=== PATIENT | male | born 1960 | race African-American/Black ===

== ENCOUNTER 2017-06-18 11:05 | Emergency (ER) | payer OTHER | END 2017-06-18 13:02 | disposition home or self-care (01) | LOC: ER 11:05 | DX: S60.211A Contusion of right wrist, initial encounter (principal); W00.2XXA Other fall from one level to another due to ice and snow, initial encounter; Y93.89 Activity, other specified; Y99.8 Other external cause status; Y92.89 Other specified places as the place of occurrence of the external cause | CPT/HCPCS: 73110; 99284 ==

== ENCOUNTER 2021-04-14 03:09 | Inpatient (IN) | payer MEDICAID, OTHER ==
[~2021-04-14] VITALS: Ht 172.7 cm; Wt 80.5 kg
[~2021-04-14 03:09] MED LIST: CYCL10TA19 PO; NAPR500T8 PO
--- NOTE | 2021-04-14 03:39 | PHYS DOC ---
Past Medical History Past Medical History: No Pertinent History Past Surgical History: No Surgical History Smoking Status: Never Smoker Alcohol Use: Occasionally Drug Use: None General Adult EDM: Chief Complaint: ABNORMAL LABS HPI: HPI: Patient is a 61 year old male without known past medical history who presents with renal failure found on outpatient labs. Was seen at [facility] and had lab testing that revealed a creatinine of 22, BUN of 122, and a hemoglobin of 7.4. We did not receive the additional lab values. His ex- presents with him and states that he has had significant weight loss over the past several months, poor appetite, and nausea and vomiting. She also states that he has been progressively dyspneic, and can no longer walk more than a few feet at a time without having to catch his breath. Over the past several days has become progressively confused leading to his laboratory work-up. Patient denied chest pain, abdominal pain, cough, congestion, dysuria. Plainly stated no to all of these questions, but would not elaborate further. Unclear whether he is fully comprehending. Review of Systems: Review of Systems: Unable to obtain a reliable ROS due to the patient's confusion. Heart Score: C/O Chest Pain: No Risk Factors: Risk Factors: DM, Current or recent (<one month) smoker, HTN, HLP, family history of CAD, obesity. Risk Scores: Score 0 - 3: 2.5% MACE over next 6 weeks - Discharge Home Score 4 - 6: 20.3% MACE over next 6 weeks - Admit for Clinical Observation Score 7 - 10: 72.7% MACE over next 6 weeks - Early Invasive Strategies Allergies: Allergies: Allergies Coded Allergies Type Severity Reaction Last Updated Verified No Known Allergies Allergy Unknown 07/07/15 Yes Physical Exam: PE: Constitutional: Ill appearing Cardiovascular: Irregular and tachycardic to the 120s. Lungs & Thorax: Crackles heard in bilateral lung alexander. Abdomen: Distended abdomen, nontender to palpation. Skin: Warm, dry, no erythema, no rash. [] Back: No tenderness, no CVA tenderness. [] Extremities: No lower extremity edema. [] Neurologic: Alert. Oriented only to person, moving all extremities, speech not slurred, face symmetric. Psychologic: Affect normal, judgement normal, mood normal. [] EKG: EKG: A. fib. Rate 118. Peaked T waves. T wave inversions in aVL. Radiology/Procedures: Radiology/Procedures: [] Impression: [facility] [address] [place] [address] IMAGING REPORT Signed PATIENT: GORDON PASTOR ACCOUNT: [id number] : 1960 LOCATION: ER AGE: 61 SEX: M EXAM STATUS: REG ER ORD. PHYSICIAN: EVI MCKEON MD REASON: RENAL FAILURE PROCEDURE: RENAL COMPLETE BILATERAL INDICATION: Reason: RENAL FAILURE / Spl. Instructions: / History: COMPARISON: None. TECHNIQUE: Grayscale and color ultrasound images obtained of the bilateral kidneys and bladder. FINDINGS: Right Kidney: 130 mm. Left Kidney: 123 mm. Severe bilateral hydronephrosis. Bladder: Large masslike structure with internal vascularity within the urinary bladder measuring 76 x 59 x 37 mm. IMPRESSION: * Severe bilateral hydronephrosis. * Large masslike structure within the urinary bladder with internal vascularity. This is more than typically seen with causes such as mass effect on the urinary bladder from enlarged prostate therefore raises the concern for a bladder neoplasm. Bladder is distended. Electronically signed by: Lance Brown MD (04/14/2021 4:47 AM) [id number] DICTATED and SIGNED BY: LANCE BROWN MD DATE: 04/14/21 [id number] 0 Course & Med Decision Making: Course & Med Decision Making Pertinent Labs and Imaging studies reviewed. (See chart for details) Patient is 61-year-old male who presents with progressive dyspnea, weight loss, nausea/vomiting, and confusion found to be in renal failure on outpatient labs. We will obtain broad work-up including CMP, mag, Phos, uric acid, CK, UA, renal ultrasound, CXR. Will give calcium empirically, as potassium was not reported to us. 338 Renal ultrasound shows bilateral severe hydronephrosis and urinary retention. Covarrubias catheter was placed draining 1200 cc. Labs show creatinine at 23, potassium 5.2, high anion gap acidosis, uremia, hyperphosphatemia, hyperuricemia, hypocalcemia. Above findings were discussed with nephrology, Dr. Pimentel, who recommended admission and further trending of labs without further intervention at this time. 050 Alex Disclaimer: Alex Disclaimer: This electronic medical record was generated, in whole or in part, using a voice recognition dictation system. Departure Departure Impression: Primary Impression: Obstructive nephropathy Additional Impressions: Hyperkalemia Hyperuricemia Hyperphosphatemia Hypocalcemia Uremia Confusion Bladder mass Disposition: ADMITTED INPATIENT Admitting Physician: JAKE HOLLAND) Condition: GUARDED Referrals: MAGDA DELGADO MD (PCP) EVI MCKEON MD Apr 14, 2021 03:39
[2021-04-14 03:58] LABS: BASO % 0 % (0-3); EOS # 0.7 x10^3/uL (0.0-0.7); EOS % 11 % (0-3); HEMATOCRIT 22.7 % (39.0-53.0); HEMOGLOBIN 7.5 g/dL (13.0-17.5); LYMPH # 0.7 x10^3/uL (1.0-4.8); LYMPH % 11 % (24-48); MEAN CORPUSCULAR HEMOGLOBIN 32 pg (25-35); MEAN CORPUSCULAR HGB CONC 33 g/dL (31-37); MEAN CORPUSCULAR VOLUME 99 fL (79-100); MONO # 1.3 x10^3/uL (0.0-1.1); MONO % 20 % (0-9); NEUT # 3.7 x10^3/uL (1.8-7.7); NEUT % 58 % (31-73); PLATELET COUNT 214 x10^3/uL (140-400); RED BLOOD COUNT 2.31 x10^6/uL (4.30-5.70); RED CELL DISTRIBUTION WIDTH 12.6 % (11.5-14.5); WHITE BLOOD COUNT 6.4 x10^3/uL (4.0-11.0)
[2021-04-14] MEDS ORDERED: CALCIUM GLUCONATE 1,000 MG/10 ML VIAL. IVP ONE (04:00)
[2021-04-14 04:23] LABS: ALBUMIN 3.6 g/dL (3.4-5.0); ALBUMIN/GLOBULIN RATIO 0.8 (1.0-1.7); MAGNESIUM 1.3 mg/dL (1.8-2.4); POTASSIUM 5.2 mmol/L (3.5-5.1); TOTAL BILIRUBIN 0.3 mg/dL (0.2-1.0); TOTAL PROTEIN 8.2 g/dL (6.4-8.2); URIC ACID 8.5 mg/dL (3.5-7.2)
[2021-04-14 04:40] LABS: GFR 2.5; PHOSPHORUS 10.2 mg/dL (2.6-4.7)
[2021-04-14 04:42] LABS: CALCIUM 5.1 mg/dL (8.5-10.1)
--- NOTE | 2021-04-14 04:50 | RAD ---
INDICATION: Reason: RENAL FAILURE / Spl. Instructions: / History: COMPARISON: None. TECHNIQUE: Grayscale and color ultrasound images obtained of the bilateral kidneys and bladder. FINDINGS: Right Kidney: 130 mm. Left Kidney: 123 mm. Severe bilateral hydronephrosis. Bladder: Large masslike structure with internal vascularity within the urinary bladder measuring 76 x 59 x 37 mm. IMPRESSION: * Severe bilateral hydronephrosis. * Large masslike structure within the urinary bladder with internal vascularity. This is more than t ypically seen with causes such as mass effect on the urinary bladder from enlarged prostate therefore raises the concern for a bladder neoplasm. Bladder is distended. Electronically signed by: Tomer Ospina MD (04/14/2021 4:47 AM) [id number]
--- NOTE | 2021-04-14 05:29 | EKG ---
[facility] [address] [place] [address] Test Date: 2021-04-14 Test Time: 03:22:21 Pat Name: GORDON PASTOR Department: Room: Gender: M Director Inbound Sales: : 1960 Requested By: EVI MCKEON Order Number: [id number] Reading MD: Rodolfo Jordan Measurements Intervals [place] Rate: 118 P: IL: QRS: -7 QRSD: 78 T: 64 QT: 332 QTc: 468 Interpretive Statements ATRIAL FIBRILLATION/FLUTTER WITH RVR LEFTWARD AXIS LEFT VENTRICULAR HYPERTROPHY WITH REPOLARIZATION ABNORMALITY ABNORMAL ECG RI6.02 No previous ECG available for comparison Electronically Signed On 04-15-2021 12:40:02 LOCAL TELEPHONE OPERATOR by Rodolfo Jordan
[2021-04-14 05:49] LABS: BILIRUBIN,URINE NEGATIVE (NEG); CLARITY,URINE CLEAR; COLOR,URINE YELLOW; NITRITE,URINE NEGATIVE (NEG); PROTEIN,URINE 30 mg/dL (NEG-TRACE); UROBILINOGEN,URINE 0.2 mg/dL (0.2 mg/dL)
[2021-04-14 05:53] LABS: BACTERIA,URINE FEW /HPF (0-FEW); RBC,URINE OCC /HPF (0-2)
--- NOTE | 2021-04-14 06:15 | RAD ---
INDICATION: Reason: CONFUSION / Spl. Instructions: / History: COMPARISON: None. TECHNIQUE: Axial CT images obtained through the head without intravenous contrast. One or more of the following individualized dose reduction techniques were utilized for this examinat ion: 1. Automated exposure control; 2. Adjustment of the mA and/or kV according to patient size; 3 . Use of iterative reconstruction technique. FINDINGS: No intracranial hemorrhage. No significant midline shift. Ventricles and sulci are globally prominent. Scattered foci of low attenuation within the white matter. IMPRESSION: * No acute intracranial hemorrhage. * Scattered regions of low attenuation within the white matter. Non-specific in nature but a common finding and frequently secondary to small vessel ischemic disease. * Mucosal thickening of maxillary sinuses. Electronically signed by: Tomer Ospina MD (04/14/2021 6:12 AM) [id number]
--- NOTE | 2021-04-14 07:31 | RAD ---
INDICATION: Reason: RENAL FAILURE / Spl. Instructions: / History: COMPARISON: None. FINDINGS: Single view of chest obtained. Cardiac silhouette is mildly prominent but likely exaggerated by portable technique. Mild calcific at herosclerosis. No definite focal airspace consolidation. IMPRESSION: * No focal airspace consolidation. Electronically signed by: Tomer Ospina MD (04/14/2021 7:28 AM) [id number]
--- NOTE | 2021-04-14 09:04 | HP ---
DATE OF SERVICE: 04/14/2021 ADMIT DATE: 04/14/2021 CHIEF COMPLAINT: Mental status change. 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 He does not have any history of diabetes or hypertension, but today presented with a real high BUN of 122 and a creatinine of 22. We rechecked his labs, his BUN here is 144 and creatinine of 23. He also has the other sequela of chronic renal insufficiency, such as hypocalcemia, hyperphosphatemia, hypertension and anemia. I suspect he has had blood pressure out control for many years. He is probably going to need dialysis. We are going to admit the patient and consult Dr. Pimentel. PAST MEDICAL HISTORY: Muscle spasms and presumed hypertension. ALLERGIES: None. FAMILY HISTORY: Diabetes. SOCIAL HISTORY: Does not drink, smoke or take drugs. He went into early detention because of construction accident. MEDICATIONS: Reviewed, please refer to the MRAD. REVIEW OF SYSTEMS: Unable to obtain, he is too confused. PHYSICAL EXAMINATION: VITALS: Within normal limits and are stable. GENERAL: He is very confused. HEENT: Normal cephalic atraumatic, external auditory canals are patent. EYES: Extraocular muscles are intact, pupils are equally round and reactive to light and accommodation. MUSCULOSKELETAL: Well developed, well nourished, good range of motion. ENDOCRINE: No thyromegaly was palpated. LYMPHATICS: No cervical chain or axillary nodes were noted. HEMATOPOIETIC: No bruising. NECK: Supple, no JVD, no thyromegaly was noted. LUNGS: Clear to auscultation in all lung alexander without rhonchi or wheezing. HEART: RRR, S1, S2 present. Peripheral pulses intact, no obvious murmurs were noted. ABDOMEN: Soft, nontender. Positive bowel sounds no organomegaly, normal bowel sounds. EXTREMITIES: Without any cyanosis, clubbing, or edema. Pedal pulses intact, Homans sign is negative. NEUROLOGIC: He is very confused. PSYCHIATRIC: He is very confused. SKIN: No ulcerations or rashes, good skin turgor, no jaundice. VASCULAR: Good capillary refill, neurovascular bundle appears to be intact. LABORATORY DATA: Creatinine is 23, BUN is 143, calcium 5.1, phosphorus 10. ASSESSMENT AND PLAN: Chronic renal failure with probable end-stage renal disease. The patient will be admitted. We will consult Dr. Pimentel. Suspect he is going need dialysis. Home meds. Deep venous thrombosis prophylaxis. Full code. Rule out COVID-19. CAMERON/DASH DR: CAMERON/roscoe TID: [id number]
[2021-04-14 09:45] VITALS: BP 222/114
[2021-04-14] MEDS ORDERED: cloNIDine HCL 0.2 MG TABLET PO ONE (09:45)
[2021-04-14 11:45] VITALS: BP 179/99
[2021-04-14] MEDS: METOPROLOL TART IMMED RELEASE 25 MG TABLET. PO SCH ×2 (14:27→23:16)
[2021-04-14 15:09] VITALS: BP 148/102
[2021-04-14] MEDS ORDERED: MAGNESIUM SULFATE 2GM 50 ML IV ONE (17:15)
--- NOTE | 2021-04-14 17:36 | PDOC2 ---
CONSULT Date of Consult Date of Consult DATE: 04/14/21 TIME: 17:24 Reason for Consult Reason for Consult: CARLINE Referring Physician Referring Physician: LONNY Identification/Chief Complaint Chief Complaint CONFUSION Source Source: Chart review, Patient History of Present Illness Reason for Visit: THIS IS A 61 YR OLD WITH CONFUSION. OP LABS APPARENTLY SHOWED BUN OF 122 AND CR OF 22. INFO GIVEN IN THE ER BY HIS EX . APPARENTLY HE HAS HAD WT LOSS WITH N/V OVER LAST SEVERAL MONTHS. LABS HERE NOTABLE FOR CR OF 23, K OF 5.2 AND MET ACIDOSIS. ALSO HAS LOW CA AND HIGH PO4. PT IS CONFUSED AND CANNOT REALLY GIVE ANY HX. PER HX PT HAS ALSO BEEN SOB. HGB OF 7.5 Past Medical History Past Medical History UNKNOWN Cardiovascular: HTN Past Surgical History Past Surgical History UNKNOWN Family History Family History UNKNOWN Social History Social History UNKNOWN Lives: with Family Current Medications Current Medications Current Medications Calcium Gluconate (Calcium Gluconate) 1,000 mg 1X ONCE IVP Last administered on 04/14/21at 03:57; Start 04/14/21 at 04:00; Stop 04/14/21 at 04:01; Status DC Clonidine HCl (Catapres) 0.2 mg 1X ONCE PO Last administered on 04/14/21at 10:00; Start 04/14/21 at 09:45; Stop 04/14/21 at 09:46; Status DC Metoprolol Tartrate (Lopressor) 25 mg BID PO Last administered on 04/14/21at 14:27; Start 04/14/21 at 14:00 Magnesium Sulfate 50 ml @ 25 mls/hr 1X ONCE IV ; Start 04/14/21 at 17:15; Stop 04/14/21 at 19:14 Active Scripts Active Cyclobenzaprine Hcl 10 Mg Tablet 1 Tab PO TID Naproxen 500 Mg Tablet. 1 Tab PO BID Allergies Allergies: Coded Allergies: No Known Allergies (Verified Allergy, Unknown, 07/07/15) ROS Review of System UNABLE TO OBTAIN Physical Exam General: Cooperative, mild distress HEENT: Atraumatic, PERRLA Abdomen: Normal bowel sounds, Soft, No tenderness Extremities: No clubbing Skin: No breakdown Neuro: Other (CONFUSED) Psych/Mental Status: Other (CONFUSED, NO ASYMMETRY) MUSCULOSKELETAL: No deformity, No swelling Vitals VITALS Vital Signs Date Time Temp Pulse Resp B/P (MAP) Pulse Ox O2 Delivery O2 Flow Rate FiO2 12/8/21 15:09 97.4 79 20 148/102 (117) 96 Room Air 97.4 Labs Labs Laboratory Tests Test 04/14/21 03:35 04/14/21 05:25 04/14/21 08:17 White Blood Count 6.4 x10^3/uL (4.0-11.0) Red Blood Count 2.31 x10^6/uL (4.30-5.70) Hemoglobin 7.5 g/dL (13.0-17.5) Hematocrit 22.7 % (39.0-53.0) Mean Corpuscular Volume 99 fL (79-100) Mean Corpuscular Hemoglobin 32 pg (25-35) Mean Corpuscular Hemoglobin Concent 33 g/dL (31-37) Red Cell Distribution Width 12.6 % (11.5-14.5) Platelet Count 214 x10^3/uL (140-400) Neutrophils (%) (Auto) 58 % (31-73) Lymphocytes (%) (Auto) 11 % (24-48) Monocytes (%) (Auto) 20 % (0-9) Eosinophils (%) (Auto) 11 % (0-3) Basophils (%) (Auto) 0 % (0-3) Neutrophils # (Auto) 3.7 x10^3/uL (1.8-7.7) Lymphocytes # (Auto) 0.7 x10^3/uL (1.0-4.8) Monocytes # (Auto) 1.3 x10^3/uL (0.0-1.1) Eosinophils # (Auto) 0.7 x10^3/uL (0.0-0.7) Basophils # (Auto) 0.0 x10^3/uL (0.0-0.2) Sodium Level 141 mmol/L (136-145) Potassium Level 5.2 mmol/L (3.5-5.1) Chloride Level 101 mmol/L (98-107) Carbon Dioxide Level 13 mmol/L (21-32) Anion Gap 27 (6-14) Blood Urea Nitrogen 143 mg/dL (8-26) Creatinine 23.0 mg/dL (0.7-1.3) Estimated GFR (Cockcroft-Gault) 2.5 BUN/Creatinine Ratio 6 (6-20) Glucose Level 96 mg/dL (70-99) Lactic Acid Level 0.9 mmol/L (0.4-2.0) Uric Acid 8.5 mg/dL (3.5-7.2) Calcium Level 5.1 mg/dL (8.5-10.1) Phosphorus Level 10.2 mg/dL (2.6-4.7) Magnesium Level 1.3 mg/dL (1.8-2.4) Total Bilirubin 0.3 mg/dL (0.2-1.0) Aspartate Amino Transf (AST/SGOT) 17 U/L (15-37) Alanine Aminotransferase (ALT/SGPT) 25 U/L (16-63) Alkaline Phosphatase 54 U/L (46-116) Creatine Kinase 2993 U/L (39-308) Total Protein 8.2 g/dL (6.4-8.2) Albumin 3.6 g/dL (3.4-5.0) Albumin/Globulin Ratio 0.8 (1.0-1.7) Urine Collection Type U cath Urine Color Yellow Urine Clarity Clear Urine pH 6.0 (<5.0-8.0) Urine Specific [place] 1.010 (1.000-1.030) Urine Protein 30 mg/dL (NEG-TRACE) Urine Glucose (UA) Negative mg/dL (NEG) Urine Ketones (Stick) Negative mg/dL (NEG) Urine Blood Small (NEG) Urine Nitrite Negative (NEG) Urine Bilirubin Negative (NEG) Urine Urobilinogen Dipstick 0.2 mg/dL (0.2 mg/dL) Urine Leukocyte Esterase Trace (NEG) Urine RBC Occ /HPF (0-2) Urine WBC 1-4 /HPF (0-4) Urine Squamous Epithelial Cells Occ /LPF Urine Bacteria Few /HPF (0-FEW) SARS-CoV-2 RNA (JILLIAN) Negative (Negative) SARS-CoV-2 Antigen (Rapid) Negative (NEGATIVE) Laboratory Tests Test 04/14/21 03:35 04/14/21 05:25 04/14/21 08:17 White Blood Count 6.4 x10^3/uL (4.0-11.0) Red Blood Count 2.31 x10^6/uL (4.30-5.70) Hemoglobin 7.5 g/dL (13.0-17.5) Hematocrit 22.7 % (39.0-53.0) Mean Corpuscular Volume 99 fL (79-100) Mean Corpuscular Hemoglobin 32 pg (25-35) Mean Corpuscular Hemoglobin Concent 33 g/dL (31-37) Red Cell Distribution Width 12.6 % (11.5-14.5) Platelet Count 214 x10^3/uL (140-400) Neutrophils (%) (Auto) 58 % (31-73) Lymphocytes (%) (Auto) 11 % (24-48) Monocytes (%) (Auto) 20 % (0-9) Eosinophils (%) (Auto) 11 % (0-3) Basophils (%) (Auto) 0 % (0-3) Neutrophils # (Auto) 3.7 x10^3/uL (1.8-7.7) Lymphocytes # (Auto) 0.7 x10^3/uL (1.0-4.8) Monocytes # (Auto) 1.3 x10^3/uL (0.0-1.1) Eosinophils # (Auto) 0.7 x10^3/uL (0.0-0.7) Basophils # (Auto) 0.0 x10^3/uL (0.0-0.2) Sodium Level 141 mmol/L (136-145) Potassium Level 5.2 mmol/L (3.5-5.1) Chloride Level 101 mmol/L (98-107) Carbon Dioxide Level 13 mmol/L (21-32) Anion Gap 27 (6-14) Blood Urea Nitrogen 143 mg/dL (8-26) Creatinine 23.0 mg/dL (0.7-1.3) Estimated GFR (Cockcroft-Gault) 2.5 BUN/Creatinine Ratio 6 (6-20) Glucose Level 96 mg/dL (70-99) Lactic Acid Level 0.9 mmol/L (0.4-2.0) Uric Acid 8.5 mg/dL (3.5-7.2) Calcium Level 5.1 mg/dL (8.5-10.1) Phosphorus Level 10.2 mg/dL (2.6-4.7) Magnesium Level 1.3 mg/dL (1.8-2.4) Total Bilirubin 0.3 mg/dL (0.2-1.0) Aspartate Amino Transf (AST/SGOT) 17 U/L (15-37) Alanine Aminotransferase (ALT/SGPT) 25 U/L (16-63) Alkaline Phosphatase 54 U/L (46-116) Creatine Kinase 2993 U/L (39-308) Total Protein 8.2 g/dL (6.4-8.2) Albumin 3.6 g/dL (3.4-5.0) Albumin/Globulin Ratio 0.8 (1.0-1.7) Urine Collection Type U cath Urine Color Yellow Urine Clarity Clear Urine pH 6.0 (<5.0-8.0) Urine Specific [place] 1.010 (1.000-1.030) Urine Protein 30 mg/dL (NEG-TRACE) Urine Glucose (UA) Negative mg/dL (NEG) Urine Ketones (Stick) Negative mg/dL (NEG) Urine Blood Small (NEG) Urine Nitrite Negative (NEG) Urine Bilirubin Negative (NEG) Urine Urobilinogen Dipstick 0.2 mg/dL (0.2 mg/dL) Urine Leukocyte Esterase Trace (NEG) Urine RBC Occ /HPF (0-2) Urine WBC 1-4 /HPF (0-4) Urine Squamous Epithelial Cells Occ /LPF Urine Bacteria Few /HPF (0-FEW) SARS-CoV-2 RNA (JILLIAN) Negative (Negative) SARS-CoV-2 Antigen (Rapid) Negative (NEGATIVE) Assessment/Plan Assessment/Plan IMP OBSTRUCTIVE UROPATHY SEVERE BILATERAL HYDRONEPHROSIS CARLINE-ATN HYPERKALEMIA LOW MAG ENCEPHALOPATHY UREMIA ANEMIA HYPERPHOSPHATEMIA HYPOCALCEMIA BLADDER MASS AG MET ACIDOSIS ELEVATED CPK-POSSIBLE RHABDO UNCONTROLLED HTN PLAN ZAVALA WILL NEED CT ABD PELVIS ONCE BLADDER DECOMPRESSED WILL CHECK IRON LEVELS WILL START EPOGEN HYDRATION F/U CK LEVEL WILL PROB NEED DIALYSIS HOPEFULLY CONFUSION IMPROVES WHEN RENAL CLEARANCE IMPROVES RENAL DIET START NORVASC FOR HTN WILL EVENTUALLY NEED TO SEE UROLOGY ALSO START TAMRA CHAVEZ MD Apr 14, 2021 17:36
[2021-04-14] MEDS: TAMSULOSIN 0.4 MG CAP.ER.24H. PO SCH (17:56)
[2021-04-14] MEDS: IV NORMAL SALINE 1000ML BAG 1,000 ML IV SCH (17:56)
[2021-04-14 19:00] VITALS: BP 152/95
[2021-04-14 23:00] VITALS: BP 156/96
[2021-04-15] VITALS (10 sets, daily range): BP systolic 80–135; BP diastolic 37–81
[2021-04-15] MEDS: IV NORMAL SALINE 1000ML BAG 1,000 ML IV SCH ×2 (06:08→15:22)
[2021-04-15 07:55] LABS: RED BLOOD COUNT 2.14 x10^6/uL (4.30-5.70); RED CELL DISTRIBUTION WIDTH 12.7 % (11.5-14.5); WHITE BLOOD COUNT 6.7 x10^3/uL (4.0-11.0)
[2021-04-15 08:02] LABS: HEMOGLOBIN 6.7 g/dL (13.0-17.5)
[2021-04-15 08:24] LABS: CREATININE 21.4 mg/dL (0.7-1.3); GFR 2.7
[2021-04-15 08:27] LABS: CALCIUM 5.5 mg/dL (8.5-10.1); POTASSIUM 6.1 mmol/L (3.5-5.1)
--- NOTE | 2021-04-15 09:28 | RAD ---
EXAMINATION: CT ABDOMEN+PELVIS WO INDICATION: Reason: BLADDER MASS AND HYDRONEPHROSIS, A.M. PER RN, TRAVELS BY / [facility]. Instructions: / History: COMPARISON: Ultrasound from 04/14/2021 TECHNIQUE: CT images were acquired through the abdomen and pelvis. Sagittal and coronal reformatted s eries were provided. FINDINGS: Lung Bases: Left basilar subsegmental atelectasis or scarring. Abdomen: Liver: Normal in size and attenuation. No discrete hepatic abnormality. Gallbladder & Biliary System: Mildly distended gallbladder without evidence of inflammation. No signi ficant biliary ductal dilation. Spleen: Unremarkable. Pancreas: Unremarkable Adrenal Glands: Unremarkable Kidneys: Severe bilateral hydroureteronephrosis. Mild bilateral perinephric edema. No focal renal les ions, within the limits of this noncontrast examination Bowel: Small hiatal hernia. No evidence of bowel obstruction or focal inflammatory process. Colonic d iverticulosis without diverticulitis. Lymph Nodes: No apparent pathologically enlarged abdominal adenopathy. Vasculature: Mild aortobiiliac atherosclerotic disease. Other: No free intra-abdominal air or free fluid. Pelvis: Bladder: Covarrubias catheter is in place and displaced nondependently secondry to a large bladder mass. Th e entire diameter of the intraluminal bladder mass is not well appreciated without contrast. Reproductive Organs: The prostate gland is enlarged and appears contiguous with the lateral mass mar jed this is incompletely evaluated without contrast. Lymph Nodes: No definite pathologic adenopathy. Other: No significant free pelvic fluid Body Wall: Small periumbilical fat-containing hernia. There are bilateral fat containing inguinal her nias with likely small bilateral hydroceles. Bones: There is vacuum disc phenomenon at the L4-L5 disc level with a central likely degenerative janet ency along the superior endplate of L5 no definite suspicious lytic or blastic osseous lesions. No ac [place] fracture. Broad-based disc protrusions at the L4-L5 and L5-S1 levels resulting in moderate centra l and neuroforaminal narrowing. IMPRESSION: 1. Large bladder mass causing severe bilateral hydronephrosis. This likely represents a bladder neopl asm as demonstrated on prior ultrasound. 2. The prostate gland appears enlarged, however it is not well evaluated with the the lack of IV cont rast. Additional imaging with pelvic MRI may be considered. 3. Likely developing Schmorl's node in the central portion of the L5 vertebral body. Osseous metastas is is felt to be less likely but not entirely excluded. Recommend attention on follow-up. Exposure: One or more of the following individualized dose reduction techniques were utilized for thi s examination: 1. Automated exposure control 2. Adjustment of the mA and/or kV according to patient size 3. Use of iterative reconstruction technique. Electronically signed by: Francisco Oakes DO (04/15/2021 9:26 AM) [facility]
[2021-04-15] MEDS: TAMSULOSIN 0.4 MG CAP.ER.24H. PO SCH (09:54)
[2021-04-15] MEDS: METOPROLOL TART IMMED RELEASE 25 MG TABLET. PO SCH (09:54)
[2021-04-15] MEDS ORDERED: LIDOCAINE WITH 8.4% SOD BICARB 3 ML DISP.SYRIN. ONE (10:03)
[2021-04-15] MEDS ORDERED: LIDOCAINE WITH 8.4% SOD BICARB 3 ML DISP.SYRIN. INJ ONE (10:45)
--- NOTE | 2021-04-15 11:23 | PDOC ---
Renal-Progress Notes Subjective Notes Notes LESS CONFUSED History of Present Illness Hx of present illness VERY ILL BUT SOME IMPROVEMENT NOTED Vitals Vitals Vital Signs Date Time Temp Pulse Resp B/P (MAP) Pulse Ox O2 Delivery O2 Flow Rate FiO2 04/15/21 09:54 69 135/73 04/15/21 06:27 98.0 16 95 Room Air 98.0 Weight Weight [ ] I.O. Intake and Output Intake and Output 04/15/21 07:00 Intake Total 1620 ml Output Total 3400 ml Balance -1780 ml Intake Oral 620 ml IV Total 1000 ml Output Urine Total 3400 ml Labs Labs Laboratory Tests Test 04/14/21 20:17 04/15/21 06:05 04/15/21 06:25 Glucose (Fingerstick) 133 mg/dL (70-99) White Blood Count 6.7 x10^3/uL (4.0-11.0) Red Blood Count 2.14 x10^6/uL (4.30-5.70) Hemoglobin 6.7 g/dL (13.0-17.5) Hematocrit 21.0 % (39.0-53.0) Mean Corpuscular Volume 98 fL (79-100) Mean Corpuscular Hemoglobin 31 pg (25-35) Mean Corpuscular Hemoglobin Concent 32 g/dL (31-37) Red Cell Distribution Width 12.7 % (11.5-14.5) Platelet Count 197 x10^3/uL (140-400) Sodium Level 138 mmol/L (136-145) Potassium Level 6.1 mmol/L (3.5-5.1) Chloride Level 104 mmol/L (98-107) Carbon Dioxide Level 11 mmol/L (21-32) Anion Gap 23 (6-14) Blood Urea Nitrogen 134 mg/dL (8-26) Creatinine 21.4 mg/dL (0.7-1.3) Estimated GFR (Cockcroft-Gault) 2.7 Glucose Level 97 mg/dL (70-99) Calcium Level 5.5 mg/dL (8.5-10.1) Iron Level 55 ug/dL (65-175) Total Iron Binding Capacity 202 ug/dL (250-450) Iron Saturation 27 % (15-34) Micro Micro Microbiology 04/14/21 Blood Culture - Preliminary, Resulted NO GROWTH AFTER 1 DAY Review of Systems Constitutional: yes: other (UNABLE TO OBTAIN) Physical Exam General Appearance: no apparent distress Skin: warm Respiratory: bilateral CTA Heart: S1S2 Abdomen: soft, bowel sounds present Genitourinary: bladder flat, prescott catheter Extremities: pulses present, no edema, atrophy Neurology: alert, oriented Assessment Assessment IMP BLADDER MASS-PROB BLADDER CANCER OBSTRUCTIVE UROPATHY SEVERE BILATERAL HYDRONEPHROSIS CARLINE-ATN HYPERKALEMIA LOW MAG ENCEPHALOPATHY UREMIA ANEMIA IRON DEFICIENCY HYPERPHOSPHATEMIA HYPOCALCEMIA AG MET ACIDOSIS ELEVATED CPK-POSSIBLE RHABDO UNCONTROLLED HTN PLAN PRESCOTT CONT EPOGEN START VENOFER HYDRATION F/U CK LEVEL WILL ASK IR TO PLACE TEMP HD LINE HOPEFULLY CONFUSION IMPROVES WHEN RENAL CLEARANCE IMPROVES RENAL DIET ADD BINDERS WILL EVENTUALLY NEED TO SEE UROLOGY CONT FLOMAX FOR NOW WILL START HD AND STABILIZE POSSIBLE TRANSFER TO SEE UROLOGY WILL D/W ATTENDING TAMRA VIDAL MD Apr 15, 2021 11:23
[2021-04-15] MEDS ORDERED: DIALYSIS PATIENT. MC PRN (11:30)
[2021-04-15] MEDS ORDERED: diphenhydrAMINE 50 MG/ML VIAL IV PRN ×2 (11:30)
[2021-04-15] MEDS ORDERED: IV NORMAL SALINE 1000ML BAG 1,000 ML IV PRN ×2 (11:30)
--- NOTE | 2021-04-15 11:40 | NUR ---
SS following for discharge planning. SS reviewed pt chart and discussed with pt RN. Pt is from home and is currently on room air. COVID19 negative. Pt needing emergent hemodialysis. Temporary HD cath placed today. Pt received one unit of blood. Per Dr. Pimentel, pt will need outpatient hemodialysis set up at [facility], ; fax [phone]. Serology labs ordered. SS currently awaiting IR report and serology labs at this time and will send completed referral to [facility] once received. SS will continue to follow for discharge planning. Addendum: 04/15/21 at 1237 by MARLENY LUGO Referral phoned and faxed to [facility], ; fax [phone].
[2021-04-15] MEDS: SEVELAMER CARBONATE 800 MG TABLET. PO SCH ×2 (12:00→17:00)
[2021-04-15] MEDS: FOLIC/VIT B COMP W-C (RENAL) TABLET. PO SCH (12:00)
[2021-04-15] MEDS ORDERED: IRON SUCROSE COMPLEX 500 MG in IV NORMAL SALINE 250ML 250 ML IV ONE (12:00)
--- NOTE | 2021-04-15 13:01 | PDOC ---
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 He does not have any history of diabetes or hypertension, but today presented with a real high BUN of 122 and a creatinine of 22. We rechecked his labs, his BUN here is 144 and creatinine of 23. He also has the other sequela of chronic renal insufficiency, such as hypocalcemia, hyperphosphatemia, hypertension and anemia. I suspect he has had blood pressure out control for many years. He is probably going to need dialysis. We are going to admit the patient and consult Dr. Pimentel. 04/15/2021 Patient seen and examined Patient is awake, alert, in NAD Zavala catheter to BSD; hematuria noted residential monitor Chart reviewed Discussed with RN Vitals/I&O Vitals/I&O: Vital Signs Date Time Temp Pulse Resp B/P (MAP) Pulse Ox O2 Delivery O2 Flow Rate FiO2 04/15/21 09:54 69 135/73 04/15/21 06:27 98.0 16 95 Room Air 98.0 I & O 04/14/21 04/14/21 04/15/21 15:00 23:00 07:00 Intake Total 620 ml 1000 ml Output Total 1000 ml 950 ml 1450 ml Balance -1000 ml -330 ml -450 ml Physical Exam General: Cooperative, mild distress Heart: Regular rate Lungs: Clear Abdomen: Normal bowel sounds, Soft, No tenderness Extremities: No clubbing Skin: No breakdown Labs Labs: Laboratory Tests Test 04/14/21 20:17 04/15/21 06:05 04/15/21 06:25 Glucose (Fingerstick) 133 mg/dL (70-99) White Blood Count 6.7 x10^3/uL (4.0-11.0) Red Blood Count 2.14 x10^6/uL (4.30-5.70) Hemoglobin 6.7 g/dL (13.0-17.5) Hematocrit 21.0 % (39.0-53.0) Mean Corpuscular Volume 98 fL (79-100) Mean Corpuscular Hemoglobin 31 pg (25-35) Mean Corpuscular Hemoglobin Concent 32 g/dL (31-37) Red Cell Distribution Width 12.7 % (11.5-14.5) Platelet Count 197 x10^3/uL (140-400) Hepatitis B Surface Antigen Nonreactive (Nonreactive) Hepatitis B Core Total Antibody Nonreactive (Nonreactive) Sodium Level 138 mmol/L (136-145) Potassium Level 6.1 mmol/L (3.5-5.1) Chloride Level 104 mmol/L (98-107) Carbon Dioxide Level 11 mmol/L (21-32) Anion Gap 23 (6-14) Blood Urea Nitrogen 134 mg/dL (8-26) Creatinine 21.4 mg/dL (0.7-1.3) Estimated GFR (Cockcroft-Gault) 2.7 Glucose Level 97 mg/dL (70-99) Calcium Level 5.5 mg/dL (8.5-10.1) Iron Level 55 ug/dL (65-175) Total Iron Binding Capacity 202 ug/dL (250-450) Iron Saturation 27 % (15-34) Assessment and Plan Assessmemt and Plan Chronic renal failure with probable end-stage renal disease. Bladder mass possible cancer Plan: Appreciate subspecialist input Temporary cath for dialysis placed today Dialysis today One unit of blood administered Home meds. Deep venous thrombosis prophylaxis. Full code. COVID-19 negative Will consult Heme/Onc Will likely need Urology eval Per nephrology recommendations please see the following and we certainly agree and appreciate their input: IMPRESSION BLADDER MASS-PROB BLADDER CANCER OBSTRUCTIVE UROPATHY SEVERE BILATERAL HYDRONEPHROSIS CARLINE-ATN HYPERKALEMIA LOW MAG ENCEPHALOPATHY UREMIA ANEMIA IRON DEFICIENCY HYPERPHOSPHATEMIA HYPOCALCEMIA AG MET ACIDOSIS ELEVATED CPK-POSSIBLE RHABDO UNCONTROLLED HTN PLAN ZAVALA CONT EPOGEN START VENOFER HYDRATION F/U CK LEVEL WILL ASK IR TO PLACE TEMP HD LINE HOPEFULLY CONFUSION IMPROVES WHEN RENAL CLEARANCE IMPROVES RENAL DIET ADD BINDERS WILL EVENTUALLY NEED TO SEE UROLOGY CONT FLOMAX FOR NOW WILL START HD AND STABILIZE POSSIBLE TRANSFER TO SEE UROLOGY WILL D/W ATTENDING Comment Review of Relevant I have reviewed the following items kirstie (where applicable) has been applied. Medications: Current Medications Medications (Trade) Dose Ordered Sig/Laura Route PRN Reason Start Time Stop Time Status Last Admin Dose Admin Metoprolol Tartrate (Lopressor) 25 mg BID PO 04/14/21 14:00 04/15/21 09:54 Magnesium Sulfate 50 ml @ 25 mls/hr 1X ONCE IV 04/14/21 17:15 04/14/21 19:14 DC 04/14/21 17:58 Tamsulosin HCl (Flomax) 0.4 mg DAILY PO 04/14/21 18:00 04/15/21 09:54 Amlodipine Besylate (Norvasc) 5 mg DAILY PO 04/14/21 18:00 04/15/21 09:53 Sodium Chloride 1,000 ml @ 100 mls/hr Q10H IV 04/14/21 17:45 04/15/21 06:08 Lidocaine HCl (Buffered Lidocaine 1%) 3 ml 1X ONCE INJ 04/15/21 10:45 04/15/21 10:46 DC 04/15/21 11:04 Justifications for Admission Other Justification GIACOMO MUKHERJEE III DO Apr 15, 2021 13:01
--- NOTE | 2021-04-15 14:47 | RAD ---
Procedure: Temporary hemodialysis catheter placement Total fluoroscopy time: 0.1 Min Dose area product 0.1 mGycm2 Sterility: All elements of maximal sterile barrier technique including the use of a cap, mask, steril e gown, sterile gloves, large sterile sheet, appropriate hand hygiene, and 2% chlorhexidine for cutan eous antisepsis (or acceptable alternative antiseptic per current guidelines) were followed for this procedure. Consent: The procedure was explained in its entirety to the patient or the patients designated repres entative by a member of the treatment team, including a discussion of the risks, benefits and commonl y accepted alternatives to the procedure, as well as the expected consequences of no therapy whatsoev er. Discussion of the risks included, but was not limited to, those that are most frequent and thos e that are rare but possibly severe or life-threatening, as well as the possibility of unforeseen com plications. Technique and Findings: Following informed consent, the patient was prepped and draped in the usual s terile fashion. Ultrasound interrogation of the right neck revealed patency and compressibility of t he right internal jugular vein. A 21-gauge micropuncture was then used to gain access to this vein u nder ultrasound guidance. A hard copy ultrasound image was recorded. A guidewire was advanced centra lly over which, following dilatation, a temporary dialysis catheter was placed. The new catheter wa s found to flush and aspirate normally. The catheter was secured in place. Sterile dressings were franck lied. No immediate complications were identified. IMPRESSION: Placement of a right internal jugular temporary dialysis catheter Electronically signed by: Pietro Aguilar MD (04/15/2021 2:45 PM) [id number]
[2021-04-15] MEDS ORDERED: METOPROLOL IV PUSH 5 MG/5 ML VIAL. IVP ONE (15:00)
[2021-04-15] MEDS ORDERED: ONDANSETRON PF 4 MG/2 ML VIAL. IVP PRN (15:15)
--- NOTE | 2021-04-15 15:15 | EKG ---
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
--- NOTE | 2021-04-15 16:08 | PDOC2 ---
CARDIAC CONSULT DATE OF CONSULT Date of Consult DATE: 04/15/21 TIME: 15:50 REASON FOR CONSULT Reason for Consult: AFIB REFERRING PHYSICIAN Referring Physician: Dr. Granger SOURCE Source: Chart review, Patient HISTORY OF PRESENT ILLNESS HISTORY OF PRESENT ILLNESS This is a 61 yo male who presented secondary to abnormal labs, renal failure. Patient had new onset confusion. Was seen at [facility] and had lab testing that revealed a creatinine of 22, BUN of 122, and a hemoglobin of 7.4. Was referred to the ED for further evaluation and treatment. He reports significant weight loss, poor appetite, and nausea/vomiting over the past several months. Has also had progressive dyspnea upon exertion. Was started on HD. Went into AFIB with RVR post HD, which prompted this consult. He denies any chest pain, dizziness, diaphoresis, or shortness of breath. PAST MEDICAL HISTORY Cardiovascular: No pertinent hx Pulmonary: No pertinent hx Renal/: Other (urinary retention ) Endocrine: No pertinent hx PAST SURGICAL HISTORY Past Surgical History: No pertinent history FAMILY HISTORY Family History: Other (prostate CA ) SOCIAL HISTORY Smoke: No ALCOHOL: none Drugs: Marijuana Lives: Alone CURRENT MEDICATIONS CURRENT MEDICATIONS Current Medications Medications (Trade) Dose Ordered Sig/Laura Route PRN Reason Start Time Stop Time Status Last Admin Dose Admin Magnesium Sulfate 50 ml @ 25 mls/hr 1X ONCE IV 04/14/21 17:15 04/14/21 19:14 DC 04/14/21 17:58 Tamsulosin HCl (Flomax) 0.4 mg DAILY PO 04/14/21 18:00 04/15/21 09:54 Amlodipine Besylate (Norvasc) 5 mg DAILY PO 04/14/21 18:00 04/15/21 09:53 Sodium Chloride 1,000 ml @ 100 mls/hr Q10H IV 04/14/21 17:45 04/15/21 15:22 Lidocaine HCl (Buffered Lidocaine 1%) 3 ml 1X ONCE INJ 04/15/21 10:45 04/15/21 10:46 DC 04/15/21 11:04 Metoprolol Tartrate (Lopressor Vial) 5 mg 1X ONCE IVP 04/15/21 15:00 04/15/21 15:01 DC 04/15/21 15:05 Ondansetron HCl (Zofran) 4 mg PRN Q6HRS PRN IVP NAUSEA/VOMITING 04/15/21 15:15 04/15/21 15:20 ALLERGIES ALLERGIES: Coded Allergies: No Known Allergies (Verified Allergy, Unknown, 07/07/15) ROS Review of System 14 point ROS conducted with pertinent positives noted above in HPI PHYSICAL EXAM General: Alert, Oriented X3, Cooperative, No acute distress HEENT: Atraumatic, Mucous membr. moist/pink Lungs: Clear to auscultation Heart: Other (AFIB with RVR) Abdomen: Soft Extremities: No edema, Normal pulses Skin: No significant lesion Neuro: Normal speech, Sensation intact Psych/Mental Status: Mental status NL, Mood NL MUSCULOSKELETAL: Osteoarthritic changes both hands VITALS/I&O VITALS/I&O: Vital Signs Date Time Temp Pulse Resp B/P (MAP) Pulse Ox O2 Delivery O2 Flow Rate FiO2 04/15/21 15:05 69 135/73 04/15/21 06:27 98.0 16 95 Room Air 98.0 I & O 04/14/21 04/14/21 04/15/21 15:00 23:00 07:00 Intake Total 620 ml 1000 ml Output Total 1000 ml 950 ml 1450 ml Balance -1000 ml -330 ml -450 ml LABS Lab: Laboratory Tests Test 04/14/21 20:17 04/15/21 06:05 04/15/21 06:25 Glucose (Fingerstick) 133 mg/dL (70-99) H White Blood Count 6.7 x10^3/uL (4.0-11.0) Red Blood Count 2.14 x10^6/uL (4.30-5.70) L Hemoglobin 6.7 g/dL (13.0-17.5) *L Hematocrit 21.0 % (39.0-53.0) *L Mean Corpuscular Volume 98 fL (79-100) Mean Corpuscular Hemoglobin 31 pg (25-35) Mean Corpuscular Hemoglobin Concent 32 g/dL (31-37) Red Cell Distribution Width 12.7 % (11.5-14.5) Platelet Count 197 x10^3/uL (140-400) Hepatitis B Surface Antigen Nonreactive (Nonreactive) Hepatitis B Core Total Antibody Nonreactive (Nonreactive) Sodium Level 138 mmol/L (136-145) Potassium Level 6.1 mmol/L (3.5-5.1) *H Chloride Level 104 mmol/L (98-107) Carbon Dioxide Level 11 mmol/L (21-32) *L Anion Gap 23 (6-14) H Blood Urea Nitrogen 134 mg/dL (8-26) H Creatinine 21.4 mg/dL (0.7-1.3) H Estimated GFR (Cockcroft-Gault) 2.7 Glucose Level 97 mg/dL (70-99) Calcium Level 5.5 mg/dL (8.5-10.1) *L Iron Level 55 ug/dL (65-175) L Total Iron Binding Capacity 202 ug/dL (250-450) L Iron Saturation 27 % (15-34) Laboratory Tests 04/15/21 06:05 Laboratory Tests 04/15/21 06:25 ASSESSMENT/PLAN ASSESSMENT/PLAN 1. New onset AFIB with RVR in setting of below. 2. CARLINE, hyperkalemia; uremic. HD initiated 3. Obstructive uropathy, bilateral hydronephrosis 4. Bladder mass. concerns for bladder CA 5. Metabolic acidosis 6. Hypocalcemia 7. Anemia; being transfused 8. Hypertension; controlled 9. Encephalopathy 10. Hypomagnesemia 11. Hematuria Recommendations Metoprolol IVP x1 now Increase to 50mg BID No ASA/OAC with anemia TSH, lipids Recheck Mg and replace as warranted Echo to assess LV systolic function Transfuse as warranted Follow renal recs Supportive care DHIRAJ ROBERTSON APRN Apr 15, 2021 16:08
[2021-04-15] MEDS ORDERED: DIGOXIN IV 500 MCG/2 ML AMPUL. IV ONE (16:45)
[2021-04-15] MEDS: METOPROLOL TART IMMED RELEASE 50 MG TABLET. PO SCH (22:09)
[2021-04-16 02:41] VITALS: BP 122/82
[2021-04-16] MEDS: IV NORMAL SALINE 1000ML BAG 1,000 ML IV SCH ×3 (04:35→22:24)
[2021-04-16 05:43] LABS: HEMATOCRIT 23.1 % (39.0-53.0); HEMOGLOBIN 7.6 g/dL (13.0-17.5); RED BLOOD COUNT 2.4 x10^6/uL (4.30-5.70); RED CELL DISTRIBUTION WIDTH 12.7 % (11.5-14.5); WHITE BLOOD COUNT 7.8 x10^3/uL (4.0-11.0)
[2021-04-16 06:18] LABS: CHOLESTEROL/HDL RATIO 5.3
[2021-04-16 06:30] LABS: CALCIUM 6.5 mg/dL (8.5-10.1); CREATININE 14.3 mg/dL (0.7-1.3); GFR 4.3; PHOSPHORUS 6.3 mg/dL (2.6-4.7); POTASSIUM 4.1 mmol/L (3.5-5.1)
[2021-04-16 07:00] VITALS: BP 106/69
[2021-04-16] MEDS: TAMSULOSIN 0.4 MG CAP.ER.24H. PO SCH (08:50)
[2021-04-16] MEDS: FOLIC/VIT B COMP W-C (RENAL) TABLET. PO SCH (08:50)
[2021-04-16] MEDS: SEVELAMER CARBONATE 800 MG TABLET. PO SCH ×3 (08:50→16:52)
[2021-04-16] MEDS: METOPROLOL TART IMMED RELEASE 50 MG TABLET. PO SCH ×2 (08:50→22:23)
[2021-04-16] MEDS ORDERED: 0.9 % SODIUM CHLORIDE 10 ML DISP.SYRIN. IV PRN ×2 (09:15)
[2021-04-16] MEDS ORDERED: ALBUMIN HUMAN 25% 200 ML IV PRN (09:15)
[2021-04-16] MEDS ORDERED: DIALYSIS PATIENT. MC PRN ×2 (09:15)
[2021-04-16] MEDS ORDERED: IV NORMAL SALINE 1000ML BAG 1,000 ML IV PRN ×2 (09:15)
--- NOTE | 2021-04-16 10:39 | PDOC ---
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 He does not have any history of diabetes or hypertension, but today presented with a real high BUN of 122 and a creatinine of 22. We rechecked his labs, his BUN here is 144 and creatinine of 23. He also has the other sequela of chronic renal insufficiency, such as hypocalcemia, hyperphosphatemia, hypertension and anemia. I suspect he has had blood pressure out control for many years. He is probably going to need dialysis. We are going to admit the patient and consult Dr. Pimentel. 04/16/2021 Patient seen and examined Discussed patient's disposition with family member in room, she states that his mental status/confusion has improved Patient seen in dialysis, awake, alert, appears well in NAD Chart reviewed Discussed with RN 04/15/2021 Patient seen and examined Patient is awake, alert, in NAD Zavala catheter to BSD; hematuria noted air sampling and monitoring Chart reviewed Discussed with RN Vitals/I&O Vitals/I&O: Vital Signs Date Time Temp Pulse Resp B/P (MAP) Pulse Ox O2 Delivery O2 Flow Rate FiO2 04/16/21 08:51 136 106/69 04/16/21 08:00 Room Air 04/16/21 07:00 98.0 18 97 98.0 I & O 04/15/21 04/15/21 04/16/21 15:00 23:00 07:00 Intake Total 210 ml 740 ml 1625 ml Output Total 900 ml 1100 ml Balance 210 ml -160 ml 525 ml Physical Exam General: Alert, Oriented X3, Cooperative, No acute distress Heart: Other (AFIB with RVR) Lungs: Clear Abdomen: Soft Extremities: No edema, Normal pulses Skin: No significant lesion Labs Labs: Laboratory Tests Test 04/16/21 05:00 White Blood Count 7.8 x10^3/uL (4.0-11.0) Red Blood Count 2.40 x10^6/uL (4.30-5.70) Hemoglobin 7.6 g/dL (13.0-17.5) Hematocrit 23.1 % (39.0-53.0) Mean Corpuscular Volume 96 fL (79-100) Mean Corpuscular Hemoglobin 32 pg (25-35) Mean Corpuscular Hemoglobin Concent 33 g/dL (31-37) Red Cell Distribution Width 12.7 % (11.5-14.5) Platelet Count 181 x10^3/uL (140-400) Sodium Level 141 mmol/L (136-145) Potassium Level 4.1 mmol/L (3.5-5.1) Chloride Level 103 mmol/L (98-107) Carbon Dioxide Level 22 mmol/L (21-32) Anion Gap 16 (6-14) Blood Urea Nitrogen 78 mg/dL (8-26) Creatinine 14.3 mg/dL (0.7-1.3) Estimated GFR (Cockcroft-Gault) 4.3 Glucose Level 102 mg/dL (70-99) Calcium Level 6.5 mg/dL (8.5-10.1) Phosphorus Level 6.3 mg/dL (2.6-4.7) Creatine Kinase 1439 U/L (39-308) Triglycerides Level 81 mg/dL (0-150) Cholesterol Level 139 mg/dL (0-200) LDL Cholesterol, Calculated 97 mg/dL (0-100) VLDL Cholesterol, Calculated 16 mg/dL (0-40) Non-HDL Cholesterol Calculated 113 mg/dL (0-129) HDL Cholesterol 26 mg/dL (40-60) Cholesterol/HDL Ratio 5.3 Thyroid Stimulating Hormone (TSH) 2.425 uIU/mL (0.358-3.74) Assessment and Plan Assessmemt and Plan Chronic renal failure with probable end-stage renal disease. Bladder mass possible cancer Plan: Appreciate subspecialist input CT abd/pelvis results per report: IMPRESSION: 1. Large bladder mass causing severe bilateral hydronephrosis. This likely represents a bladder neoplasm as demonstrated on prior ultrasound. 2. The prostate gland appears enlarged, however it is not well evaluated with the the lack of IV contrast. Additional imaging with pelvic MRI may be considered. 3. Likely developing Schmorl's node in the central portion of the L5 vertebral body. Osseous metastasis is felt to be less likely but not entirely excluded. Recommend attention on follow-up. Dialysis today Home meds. Deep venous thrombosis prophylaxis. Full code. COVID-19 negative Will consult Heme/Onc Will likely need Urology eval Per nephrology recommendations please see the following and we certainly agree and appreciate their input: IMPRESSION BLADDER MASS-PROB BLADDER CANCER OBSTRUCTIVE UROPATHY SEVERE BILATERAL HYDRONEPHROSIS CARLINE-ATN HYPERKALEMIA LOW MAG ENCEPHALOPATHY UREMIA ANEMIA IRON DEFICIENCY HYPERPHOSPHATEMIA HYPOCALCEMIA AG MET ACIDOSIS ELEVATED CPK-POSSIBLE RHABDO UNCONTROLLED HTN PLAN ZAVALA CONT EPOGEN START VENOFER HYDRATION F/U CK LEVEL WILL ASK IR TO PLACE TEMP HD LINE HOPEFULLY CONFUSION IMPROVES WHEN RENAL CLEARANCE IMPROVES RENAL DIET ADD BINDERS WILL EVENTUALLY NEED TO SEE UROLOGY CONT FLOMAX FOR NOW WILL START HD AND STABILIZE POSSIBLE TRANSFER TO SEE UROLOGY WILL D/W ATTENDING Comment Review of Relevant I have reviewed the following items kirstie (where applicable) has been applied. Medications: Current Medications Medications (Trade) Dose Ordered Sig/Laura Route PRN Reason Start Time Stop Time Status Last Admin Dose Admin Lidocaine HCl (Buffered Lidocaine 1%) 3 ml 1X ONCE INJ 04/15/21 10:45 04/15/21 10:46 DC 04/15/21 11:04 Iron Sucrose 500 mg/Sodium Chloride 275 ml @ 78.571 mls/ hr 1X ONCE IV 04/15/21 12:00 04/15/21 15:29 DC 04/15/21 20:14 Sevelamer Carbonate (Renvela) 800 mg TIDWMEALS PO 04/15/21 12:00 04/16/21 08:50 Vitamin B Complex/ Vitamin C (Genie-Seda) 1 tab DAILY PO 04/15/21 12:00 04/16/21 08:50 Metoprolol Tartrate (Lopressor Vial) 5 mg 1X ONCE IVP 04/15/21 15:00 04/15/21 15:01 DC 04/15/21 15:05 Ondansetron HCl (Zofran) 4 mg PRN Q6HRS PRN IVP NAUSEA/VOMITING 04/15/21 15:15 04/15/21 15:20 Metoprolol Tartrate (Lopressor) 50 mg BID PO 04/15/21 21:00 04/16/21 08:50 Digoxin (Lanoxin) 500 mcg 1X ONCE IV 04/15/21 16:45 04/15/21 16:46 DC 04/15/21 17:14 Justifications for Admission Other Justification GIACOMO MUKHERJEE K III DO Apr 16, 2021 10:39
--- NOTE | 2021-04-16 11:28 | NUR ---
SS following up with discharge planning. SS reviewed pt chart and discussed with pt RN. Pt is currently on room air. COVID19 negative. Pt has confirmed chair time for outpatient hemodialysis Monday, , and Monday at 1015 at [facility], ; fax [phone]. Pt first start date for dialysis is scheduled for 04/20/[address] Pimentel notified. Per Dr. Pimentel not ready for discharge at this time. SS will continue to follow for discharge planning.
--- NOTE | 2021-04-16 12:04 | PDOC ---
Renal-Progress Notes Subjective Notes Notes NO COMPLAINTS History of Present Illness Hx of present illness EATING BETTER, AWAKE ALERT AND ORIENTED NOW Vitals Vitals Vital Signs Date Time Temp Pulse Resp B/P (MAP) Pulse Ox O2 Delivery O2 Flow Rate FiO2 04/16/21 08:51 136 106/69 04/16/21 08:00 Room Air 04/16/21 07:00 98.0 18 97 98.0 Weight Weight [ ] I.O. Intake and Output Intake and Output 04/16/21 07:00 Intake Total 2575 ml Output Total 2000 ml Balance 575 ml Intake Oral 960 ml IV Total 1275 ml Blood Product IV Normal Saline Flush 340 ml Output Urine Total 2000 ml Labs Labs Laboratory Tests Test 04/16/21 05:00 White Blood Count 7.8 x10^3/uL (4.0-11.0) Red Blood Count 2.40 x10^6/uL (4.30-5.70) Hemoglobin 7.6 g/dL (13.0-17.5) Hematocrit 23.1 % (39.0-53.0) Mean Corpuscular Volume 96 fL (79-100) Mean Corpuscular Hemoglobin 32 pg (25-35) Mean Corpuscular Hemoglobin Concent 33 g/dL (31-37) Red Cell Distribution Width 12.7 % (11.5-14.5) Platelet Count 181 x10^3/uL (140-400) Sodium Level 141 mmol/L (136-145) Potassium Level 4.1 mmol/L (3.5-5.1) Chloride Level 103 mmol/L (98-107) Carbon Dioxide Level 22 mmol/L (21-32) Anion Gap 16 (6-14) Blood Urea Nitrogen 78 mg/dL (8-26) Creatinine 14.3 mg/dL (0.7-1.3) Estimated GFR (Cockcroft-Gault) 4.3 Glucose Level 102 mg/dL (70-99) Calcium Level 6.5 mg/dL (8.5-10.1) Phosphorus Level 6.3 mg/dL (2.6-4.7) Creatine Kinase 1439 U/L (39-308) Triglycerides Level 81 mg/dL (0-150) Cholesterol Level 139 mg/dL (0-200) LDL Cholesterol, Calculated 97 mg/dL (0-100) VLDL Cholesterol, Calculated 16 mg/dL (0-40) Non-HDL Cholesterol Calculated 113 mg/dL (0-129) HDL Cholesterol 26 mg/dL (40-60) Cholesterol/HDL Ratio 5.3 Thyroid Stimulating Hormone (TSH) 2.425 uIU/mL (0.358-3.74) Micro Micro Microbiology 04/14/21 Blood Culture - Preliminary, Resulted NO GROWTH AFTER 2 DAYS Review of Systems Constitutional: yes: weakness, alert, oriented Ears/Nose/Throat: Yes: no symptom reported Eyes: Yes: no symptom reported Pulmonary: Yes no symptom reported Gastrointestional: Yes: nausea Genitourinary: Yes: no symptom reported Musculoskeletal: Yes: no symptom reported Skin: Yes no symptom reported Psychiatric/Neurological: Yes: no symptom reported Endocrine: Yes: no symptom reported Hematologic/Lymphatic: Yes: no symptom reported Physical Exam General Appearance: no apparent distress Skin: warm Respiratory: bilateral CTA Heart: S1S2 Abdomen: soft, bowel sounds present Genitourinary: bladder flat, prescott catheter Extremities: pulses present, no edema, atrophy Neurology: alert, oriented Assessment Assessment IMP BLADDER MASS-PROB BLADDER CANCER OBSTRUCTIVE UROPATHY SEVERE BILATERAL HYDRONEPHROSIS CARLINE-ATN HYPERKALEMIA LOW MAG ENCEPHALOPATHY UREMIA ANEMIA IRON DEFICIENCY HYPERPHOSPHATEMIA HYPOCALCEMIA AG MET ACIDOSIS ELEVATED CPK-POSSIBLE RHABDO-CK 1499 UNCONTROLLED HTN PLAN PRESCOTT CONT EPOGEN S/P VENOFER HYDRATION RENAL DIET WILL EVENTUALLY NEED TO SEE UROLOGY CONT FLOMAX HD TODAY AGAIN NO UF LOW QB POSSIBLE TRANSFER TO SEE UROLOGY OP HD HAS BEE SET UP AT [facility] D/W ATTENDING TAMRA VIDAL MD Apr 16, 2021 12:04
--- NOTE | 2021-04-16 12:39 | PDOC ---
JO CARRILLO TECHNICAL PHOTOGRAPHER 04/16/21 1239: CARDIO Progress Notes Date and Time Date of Service 04/16/2021 Time of Evaluation 1210 Subjective Subjective: No Chest Pain, No shortness of breath, No Palpitations Vitals Vitals Vital Signs Date Time Temp Pulse Resp B/P (MAP) Pulse Ox O2 Delivery O2 Flow Rate FiO2 04/16/21 08:51 136 106/69 04/16/21 08:00 Room Air 04/16/21 07:00 98.0 18 97 98.0 Weight Weight [ ] Input and Output Intake and Output Intake and Output 04/16/21 07:00 Intake Total 2575 ml Output Total 2000 ml Balance 575 ml Intake Oral 960 ml IV Total 1275 ml Blood Product IV Normal Saline Flush 340 ml Output Urine Total 2000 ml Laboratory Labs Laboratory Tests Test 04/16/21 05:00 White Blood Count 7.8 x10^3/uL (4.0-11.0) Red Blood Count 2.40 x10^6/uL (4.30-5.70) Hemoglobin 7.6 g/dL (13.0-17.5) Hematocrit 23.1 % (39.0-53.0) Mean Corpuscular Volume 96 fL (79-100) Mean Corpuscular Hemoglobin 32 pg (25-35) Mean Corpuscular Hemoglobin Concent 33 g/dL (31-37) Red Cell Distribution Width 12.7 % (11.5-14.5) Platelet Count 181 x10^3/uL (140-400) Sodium Level 141 mmol/L (136-145) Potassium Level 4.1 mmol/L (3.5-5.1) Chloride Level 103 mmol/L (98-107) Carbon Dioxide Level 22 mmol/L (21-32) Anion Gap 16 (6-14) Blood Urea Nitrogen 78 mg/dL (8-26) Creatinine 14.3 mg/dL (0.7-1.3) Estimated GFR (Cockcroft-Gault) 4.3 Glucose Level 102 mg/dL (70-99) Calcium Level 6.5 mg/dL (8.5-10.1) Phosphorus Level 6.3 mg/dL (2.6-4.7) Creatine Kinase 1439 U/L (39-308) Triglycerides Level 81 mg/dL (0-150) Cholesterol Level 139 mg/dL (0-200) LDL Cholesterol, Calculated 97 mg/dL (0-100) VLDL Cholesterol, Calculated 16 mg/dL (0-40) Non-HDL Cholesterol Calculated 113 mg/dL (0-129) HDL Cholesterol 26 mg/dL (40-60) Cholesterol/HDL Ratio 5.3 Thyroid Stimulating Hormone (TSH) 2.425 uIU/mL (0.358-3.74) Microbiology Micro Microbiology 04/14/21 Blood Culture - Preliminary, Resulted NO GROWTH AFTER 2 DAYS Review of Systems Constitutional: yes: weakness, alert, oriented Ears/Nose/Throat: Yes: no symptom reported Eyes: Yes: no symptom reported Pulmonary: Yes no symptom reported Gastrointestional: Yes: nausea Genitourinary: Yes: no symptom reported Musculoskeletal: Yes: no symptom reported Skin: Yes no symptom reported Psychiatric/Neurological: Yes: no symptom reported Endocrine: Yes: no symptom reported Hematologic/Lymphatic: Yes: no symptom reported Physical Exam HEENT: Neck Supple W Full Motion Chest: Symmetric LUNGS: Clear to Auscultation Heart: irregularly irregular (Atrial flutter) Abdomen: Soft N/T Extremities: No Calf Tenderness Neurology: alert, oriented, follow commands Assessment Assessment 1. New onset AFIB with RVR , likely precipitated by metabolic issues and anemia, atrial flutter rate controlled 2. CARLINE, hyperkalemia; uremic. HD initiated 3. Obstructive uropathy, bilateral hydronephrosis 4. Bladder mass. concerns for bladder CA 5. Metabolic acidosis 6. Hypocalcemia 7. Anemia; post transfusion 8. Hypertension; controlled 9. Encephalopathy 10. Hypomagnesemia 11. Hematuria Recommendations Continue metoprolol will adjust per rate and BP trend. Dig was given yesterday. continue rate control TTE. No ASA/OAC with anemia at this time. ECASA 81 mg when clear with others Transfuse as warranted Follow renal recs Supportive care Justicifation of Admission Dx: Justifications for Admission: Justification of Admission Dx: Yes ARCELIA ELIZABETH MD 04/16/212103: CARDIO Progress Notes Assessment Assessment Patient seen and examined I agree with our landmen assessment and plan. Atrial fib/flutter. Rate improved. Continuing present treatment and monitor. CARLINE. HD as per renal. Anemia. Continuing to monitor. JO CARRILLO TECHNICAL PHOTOGRAPHER Apr 16, 2021 12:39 ARCELIA ELIZABETH MD Apr 16, 2021 21:04
[2021-04-16 15:00] VITALS: BP 106/54
[2021-04-16 19:05] VITALS: BP 117/72
[2021-04-16 23:00] VITALS: BP 110/65
[2021-04-17 02:48] VITALS: BP 131/71
[2021-04-17 04:40] LABS: HEMOGLOBIN 7.3 g/dL (13.0-17.5); RED BLOOD COUNT 2.29 x10^6/uL (4.30-5.70); RED CELL DISTRIBUTION WIDTH 12.5 % (11.5-14.5); WHITE BLOOD COUNT 8.7 x10^3/uL (4.0-11.0)
[2021-04-17 05:09] LABS: CALCIUM 6.3 mg/dL (8.5-10.1); CREATININE 8.6 mg/dL (0.7-1.3); GFR 7.6; MAGNESIUM 1.5 mg/dL (1.8-2.4); PHOSPHORUS 4.4 mg/dL (2.6-4.7); POTASSIUM 3.7 mmol/L (3.5-5.1)
[2021-04-17 07:00] VITALS: BP 121/76
[2021-04-17] MEDS ORDERED: DIALYSIS PATIENT. MC PRN (07:15)
[2021-04-17] MEDS ORDERED: IV NORMAL SALINE 1000ML BAG 1,000 ML IV PRN ×2 (07:15)
[2021-04-17] MEDS: SEVELAMER CARBONATE 800 MG TABLET. PO SCH ×3 (08:00→17:00)
[2021-04-17] MEDS: FOLIC/VIT B COMP W-C (RENAL) TABLET. PO SCH (09:00)
[2021-04-17] MEDS: TAMSULOSIN 0.4 MG CAP.ER.24H. PO SCH (09:00)
[2021-04-17] MEDS: METOPROLOL TART IMMED RELEASE 50 MG TABLET. PO SCH ×2 (09:00→20:42)
--- NOTE | 2021-04-17 09:00 | NUR ---
Morning meds held due to patient scheduled for dialysis this morning.
--- NOTE | 2021-04-17 13:06 | PDOC ---
[facility] PROGRESS NOTE Date of Service DOS: DATE: 04/17/21 TIME: 13:03 Chief Complaint Chief Complaint Severe metabolic encephalopathy secondary to uremia Obstructive uropathy Possible ESRD Hydronephrosis New dialysis Probable bladder cancer CARLINE Hyperkalemia Low magnesium Uremia Anemia Iron deficiency Hyperphosphatemia Hypocalcemia Anion gap metabolic acidosis Rhabdomyolysis Hypertension Probable noncompliance History of Present Illness History of Present Illness 04/17/2021 Patient seen exam He has 2 daughters at his bedside there are good support for him Discussed with RN Chart reviewed He just got back from dialysis Appears more alert Eating much The patient is a pleasant 61-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 He does not have any history of diabetes or hypertension, but today presented with a real high BUN of 122 and a creatinine of 22. We rechecked his labs, his BUN here is 144 and creatinine of 23. He also has the other sequela of chronic renal insufficiency, such as hypocalcemia, hyperphosphatemia, hypertension and anemia. I suspect he has had blood pressure out control for many years. He is probably going to need dialysis. We are going to admit the patient and consult Dr. Pimentel. 04/16/2021 Patient seen and examined Discussed patient's disposition with family member in room, she states that his mental status/confusion has improved Patient seen in dialysis, awake, alert, appears well in NAD Chart reviewed Discussed with RN 04/15/2021 Patient seen and examined Patient is awake, alert, in NAD Covarrubias catheter to BSD; hematuria noted cafeteria monitor Chart reviewed Discussed with RN Vitals/I&O Vitals/I&O: Vital Signs Date Time Temp Pulse Resp B/P (MAP) Pulse Ox O2 Delivery O2 Flow Rate FiO2 04/17/21 08:00 Room Air 04/17/21 07:00 99.8 82 18 121/76 (91) 95 99.8 I & O0 04/16/21 04/16/21 04/17/21 15:00 23:00 07:00 Intake Total 360 ml 380 ml 0 ml Output Total 800 ml 150 ml 650 ml Balance -440 ml 230 ml -650 ml Physical Exam General: Alert, Oriented X3, Cooperative, No acute distress Heart: Other (AFIB with RVR) Lungs: Clear Abdomen: Soft Extremities: No edema, Normal pulses Skin: No significant lesion Labs Labs: Laboratory Tests Test 04/17/21 04:00 04/17/21 08:03 White Blood Count 8.7 x10^3/uL (4.0-11.0) Red Blood Count 2.29 x10^6/uL (4.30-5.70) Hemoglobin 7.3 g/dL (13.0-17.5) Hematocrit 22.0 % (39.0-53.0) Mean Corpuscular Volume 96 fL (79-100) Mean Corpuscular Hemoglobin 32 pg (25-35) Mean Corpuscular Hemoglobin Concent 33 g/dL (31-37) Red Cell Distribution Width 12.5 % (11.5-14.5) Platelet Count 156 x10^3/uL (140-400) Sodium Level 142 mmol/L (136-145) Potassium Level 3.7 mmol/L (3.5-5.1) Chloride Level 103 mmol/L (98-107) Carbon Dioxide Level 27 mmol/L (21-32) Anion Gap 12 (6-14) Blood Urea Nitrogen 42 mg/dL (8-26) Creatinine 8.6 mg/dL (0.7-1.3) Estimated GFR (Cockcroft-Gault) 7.6 Glucose Level 82 mg/dL (70-99) Calcium Level 6.3 mg/dL (8.5-10.1) Phosphorus Level 4.4 mg/dL (2.6-4.7) Magnesium Level 1.5 mg/dL (1.8-2.4) Creatine Kinase 1147 U/L (39-308) Glucose (Fingerstick) 80 mg/dL (70-99) Assessment and Plan Assessmemt and Plan Severe metabolic encephalopathy secondary to uremia Obstructive uropathy Possible ESRD Hydronephrosis New dialysis Probable bladder cancer CARLINE Hyperkalemia Low magnesium Uremia Anemia Iron deficiency Hyperphosphatemia Hypocalcemia Anion gap metabolic acidosis Rhabdomyolysis Hypertension Probable noncompliance Plan Cardiac monitoring Continued dialysis per nephrology He eventually will need urology surgical procedure for the bladder mass I have consulted hematology oncology Home meds DVT prophylaxis Full code Continue Covarrubias to bedside drainage Encourage p.o. intake Trend labs Long-term prognosis guarded Comment Review of Relevant I have reviewed the following items kirstie (where applicable) has been applied. Justifications for Admission Other Justification GIACOMO MUKHERJEE III DO Apr 17, 2021 13:05
[2021-04-17] MEDS: IV NORMAL SALINE 1000ML BAG 1,000 ML IV SCH ×3 (13:54→23:30)
[2021-04-17 15:00] VITALS: BP 126/80
--- NOTE | 2021-04-17 15:31 | PDOC ---
Renal-Progress Notes Subjective Notes Notes FEELING BETTER DAILY History of Present Illness Hx of present illness STABLE Vitals Vitals Vital Signs Date Time Temp Pulse Resp B/P (MAP) Pulse Ox O2 Delivery O2 Flow Rate FiO2 04/17/21 08:00 Room Air 04/17/21 07:00 99.8 82 18 121/76 (91) 95 99.8 Weight Weight [ ] I.O. Intake and Output Intake and Output 04/17/21 07:00 Intake Total 740 ml Output Total 1600 ml Balance -860 ml Intake Oral 740 ml Output Urine Total 1600 ml # Bowel Movements 1 Labs Labs Laboratory Tests Test 04/17/21 04:00 04/17/21 08:03 White Blood Count 8.7 x10^3/uL (4.0-11.0) Red Blood Count 2.29 x10^6/uL (4.30-5.70) Hemoglobin 7.3 g/dL (13.0-17.5) Hematocrit 22.0 % (39.0-53.0) Mean Corpuscular Volume 96 fL (79-100) Mean Corpuscular Hemoglobin 32 pg (25-35) Mean Corpuscular Hemoglobin Concent 33 g/dL (31-37) Red Cell Distribution Width 12.5 % (11.5-14.5) Platelet Count 156 x10^3/uL (140-400) Sodium Level 142 mmol/L (136-145) Potassium Level 3.7 mmol/L (3.5-5.1) Chloride Level 103 mmol/L (98-107) Carbon Dioxide Level 27 mmol/L (21-32) Anion Gap 12 (6-14) Blood Urea Nitrogen 42 mg/dL (8-26) Creatinine 8.6 mg/dL (0.7-1.3) Estimated GFR (Cockcroft-Gault) 7.6 Glucose Level 82 mg/dL (70-99) Calcium Level 6.3 mg/dL (8.5-10.1) Phosphorus Level 4.4 mg/dL (2.6-4.7) Magnesium Level 1.5 mg/dL (1.8-2.4) Creatine Kinase 1147 U/L (39-308) Glucose (Fingerstick) 80 mg/dL (70-99) Micro Micro Microbiology 04/14/21 Blood Culture - Preliminary, Resulted NO GROWTH AFTER 3 DAYS Review of Systems Constitutional: yes: weakness, alert, oriented Ears/Nose/Throat: Yes: no symptom reported Eyes: Yes: no symptom reported Pulmonary: Yes no symptom reported Gastrointestional: Yes: nausea Genitourinary: Yes: no symptom reported Musculoskeletal: Yes: no symptom reported Skin: Yes no symptom reported Psychiatric/Neurological: Yes: no symptom reported Endocrine: Yes: no symptom reported Hematologic/Lymphatic: Yes: no symptom reported Physical Exam General Appearance: no apparent distress Skin: warm Respiratory: bilateral CTA Heart: S1S2 Abdomen: soft, bowel sounds present Genitourinary: bladder flat, prescott catheter Extremities: pulses present, no edema, atrophy Neurology: alert, oriented, follow commands Assessment Assessment IMP BLADDER MASS-PROB BLADDER CANCER OBSTRUCTIVE UROPATHY SEVERE BILATERAL HYDRONEPHROSIS CARLINE-ATN HYPERKALEMIA LOW MAG ENCEPHALOPATHY UREMIA ANEMIA IRON DEFICIENCY HYPERPHOSPHATEMIA HYPOCALCEMIA AG MET ACIDOSIS ELEVATED CPK-POSSIBLE RHABDO-CK 1499 UNCONTROLLED HTN PLAN PRESCOTT CONT EPOGEN - HAD IV VENOFER HYDRATION TO CONTINUE RENAL DIET TO CONTINUE WILL EVENTUALLY NEED TO SEE UROLOGY CONT FLOMAX HD TODAY AGAIN WITH NO UF POSSIBLE TRANSFER TO SEE UROLOGY OP HD HAS BEE SET UP AT [facility] D/W ATTENDING TAMRA VIDAL MD Apr 17, 2021 15:31
--- NOTE | 2021-04-17 15:35 | PDOC ---
PROGRESS NOTES Date of Service: DATE: 04/17/21 TIME: 15:35 Subjective Subjective Denied any CP or SOA Objective Objective Vital Signs Date Time Temp Pulse Resp B/P (MAP) Pulse Ox O2 Delivery O2 Flow Rate FiO2 04/17/21 08:00 Room Air 04/17/21 07:00 99.8 82 18 121/76 (91) 95 99.8 Intake and Output 04/17/21 07:00 Intake Total 740 ml Output Total 1600 ml Balance -860 ml Intake Oral 740 ml Output Urine Total 1600 ml # Bowel Movements 1 Physical Exam Abdomen: Soft Heart: Other (AFIB with RVR) Extremities: No edema, Normal pulses General: Alert, Oriented X3, Cooperative, No acute distress HEENT: Atraumatic, Mucous membr. moist/pink Lungs: Clear to auscultation MUSCULOSKELETAL: Osteoarthritic changes both hands Neuro: Normal speech, Sensation intact Psych/Mental Status: Mental status NL, Mood NL Skin: No significant lesion Assessment Assessment 1. New onset AFIB with RVR , likely precipitated by metabolic issues and anemia, presently back in SR 2. CARLINE, hyperkalemia; uremic. HD initiated 3. Obstructive uropathy, bilateral hydronephrosis 4. Bladder mass. concerns for bladder CA 5. Metabolic acidosis 6. Hypocalcemia 7. Anemia; post transfusion 8. Hypertension; controlled 9. Encephalopathy 10. Hypomagnesemia 11. Hematuria Recommendations Continue metoprolol TTE as outpatient. No ASA/OAC with anemia at this time. ECASA 81 mg when clear with others Transfuse as warranted Follow renal recs Supportive care Comment Review of Relevant I have reviewed the following items kirstie (where applicable) has been applied. Labs Laboratory Tests Test 04/17/21 04:00 04/17/21 08:03 White Blood Count 8.7 x10^3/uL (4.0-11.0) Red Blood Count 2.29 x10^6/uL (4.30-5.70) Hemoglobin 7.3 g/dL (13.0-17.5) Hematocrit 22.0 % (39.0-53.0) Mean Corpuscular Volume 96 fL (79-100) Mean Corpuscular Hemoglobin 32 pg (25-35) Mean Corpuscular Hemoglobin Concent 33 g/dL (31-37) Red Cell Distribution Width 12.5 % (11.5-14.5) Platelet Count 156 x10^3/uL (140-400) Sodium Level 142 mmol/L (136-145) Potassium Level 3.7 mmol/L (3.5-5.1) Chloride Level 103 mmol/L (98-107) Carbon Dioxide Level 27 mmol/L (21-32) Anion Gap 12 (6-14) Blood Urea Nitrogen 42 mg/dL (8-26) Creatinine 8.6 mg/dL (0.7-1.3) Estimated GFR (Cockcroft-Gault) 7.6 Glucose Level 82 mg/dL (70-99) Calcium Level 6.3 mg/dL (8.5-10.1) Phosphorus Level 4.4 mg/dL (2.6-4.7) Magnesium Level 1.5 mg/dL (1.8-2.4) Creatine Kinase 1147 U/L (39-308) Glucose (Fingerstick) 80 mg/dL (70-99) Microbiology 04/14/21 Blood Culture - Preliminary, Resulted NO GROWTH AFTER 3 DAYS Medications Current Medications Info (PHARMACY MONITORING -- do not chart) 1 each PRN DAILY PRN MC SEE COMMENTS; Start 04/17/21 at 07:15 Sodium Chloride 1,000 ml @ 400 mls/hr Q2H30M PRN IV PATENCY; Start 04/17/21 at 07:15; Stop 04/17/21 at 19:14 Sodium Chloride 1,000 ml @ 1,000 mls/hr Q1H PRN IV hypotension; Start 04/17/21 at 07:15; Stop 04/17/21 at 13:14; Status DC Vitals/I & O Vital Sign - Last 24 Hours 04/16/21 04/16/21 04/16/21 04/16/21 19:05 20:00 22:23 23:00 Temp 99.3 98.6 99.3 98.6 Pulse 94 94 95 Resp 20 18 B/P (MAP) 117/72 (87) 117/72 110/65 (80) Pulse Ox 94 94 O2 Delivery Room Air Room Air Room Air 04/17/21 04/17/21 04/17/21 02:48 07:00 08:00 Temp 98.8 99.8 98.8 99.8 Pulse 84 82 Resp 16 18 B/P (MAP) 131/71 (91) 121/76 (91) Pulse Ox 95 95 O2 Delivery Room Air Room Air Room Air Intake and Output 04/16/21 04/16/21 04/17/21 15:00 23:00 07:00 Intake Total 360 ml 380 ml 0 ml Output Total 800 ml 150 ml 650 ml Balance -440 ml 230 ml -650 ml VIRGINIA PRADO MD Apr 17, 2021 15:35
[2021-04-17 19:31] VITALS: BP 132/80
[2021-04-17 23:03] VITALS: BP 133/84
[2021-04-18 02:54] VITALS: BP 143/79
[2021-04-18 05:28] LABS: CALCIUM 6.2 mg/dL (8.5-10.1); CREATININE 6.2 mg/dL (0.7-1.3); GFR 11.2; MAGNESIUM 1.6 mg/dL (1.8-2.4); PHOSPHORUS 3.2 mg/dL (2.6-4.7); POTASSIUM 3.9 mmol/L (3.5-5.1)
[2021-04-18 07:31] VITALS: BP 127/79
[2021-04-18] MEDS: SEVELAMER CARBONATE 800 MG TABLET. PO SCH ×3 (08:57→16:53)
[2021-04-18] MEDS: FOLIC/VIT B COMP W-C (RENAL) TABLET. PO SCH (08:57)
[2021-04-18] MEDS: TAMSULOSIN 0.4 MG CAP.ER.24H. PO SCH (08:57)
[2021-04-18] MEDS: METOPROLOL TART IMMED RELEASE 50 MG TABLET. PO SCH ×2 (08:58→20:44)
[2021-04-18] MEDS: IV NORMAL SALINE 1000ML BAG 1,000 ML IV SCH ×2 (09:04→20:43)
[2021-04-18 10:33] VITALS: BP 139/69
--- NOTE | 2021-04-18 12:02 | PDOC ---
Renal-Progress Notes Subjective Notes Notes NO NEW COMPLAINTS History of Present Illness Hx of present illness STABLE Vitals Vitals Vital Signs Date Time Temp Pulse Resp B/P (MAP) Pulse Ox O2 Delivery O2 Flow Rate FiO2 04/18/21 10:33 100.0 74 16 139/69 (92) 96 Room Air 100.0 Weight Weight [ ] I.O. Intake and Output Intake and Output 04/18/21 07:00 Intake Total 990 ml Output Total 1450 ml Balance -460 ml Intake Oral 990 ml Output Urine Total 1450 ml # Voids 2 Labs Labs Laboratory Tests Test 04/18/21 04:30 Sodium Level 143 mmol/L (136-145) Potassium Level 3.9 mmol/L (3.5-5.1) Chloride Level 107 mmol/L (98-107) Carbon Dioxide Level 25 mmol/L (21-32) Anion Gap 11 (6-14) Blood Urea Nitrogen 24 mg/dL (8-26) Creatinine 6.2 mg/dL (0.7-1.3) Estimated GFR (Cockcroft-Gault) 11.2 Glucose Level 83 mg/dL (70-99) Calcium Level 6.2 mg/dL (8.5-10.1) Phosphorus Level 3.2 mg/dL (2.6-4.7) Magnesium Level 1.6 mg/dL (1.8-2.4) Micro Micro Microbiology 04/14/21 Blood Culture - Preliminary, Resulted NO GROWTH AFTER 4 DAYS Review of Systems Constitutional: yes: weakness, alert, oriented Ears/Nose/Throat: Yes: no symptom reported Eyes: Yes: no symptom reported Pulmonary: Yes no symptom reported Gastrointestional: Yes: nausea Genitourinary: Yes: no symptom reported Musculoskeletal: Yes: no symptom reported Skin: Yes no symptom reported Psychiatric/Neurological: Yes: no symptom reported Endocrine: Yes: no symptom reported Hematologic/Lymphatic: Yes: no symptom reported Physical Exam General Appearance: no apparent distress Skin: warm Respiratory: bilateral CTA Heart: S1S2 Abdomen: soft, bowel sounds present Genitourinary: bladder flat, prescott catheter Extremities: pulses present, no edema, atrophy Neurology: alert, oriented, follow commands Assessment Assessment IMP BLADDER MASS-PROB BLADDER CANCER OBSTRUCTIVE UROPATHY SEVERE BILATERAL HYDRONEPHROSIS CARLINE-ATN HYPERKALEMIA LOW MAG ENCEPHALOPATHY UREMIA ANEMIA IRON DEFICIENCY HYPERPHOSPHATEMIA HYPOCALCEMIA AG MET ACIDOSIS ELEVATED CPK-POSSIBLE RHABDO-CK 1499 UNCONTROLLED HTN-BETTER SEVERE DECONDITIONING PLAN PRESCOTT CONT EPOGEN - HAD IV VENOFER HYDRATION TO CONTINUE RENAL DIET TO CONTINUE WILL EVENTUALLY NEED TO SEE UROLOGY CONT FLOMAX HD TODAY TOMORROW POSSIBLE TRANSFER TO SEE UROLOGY OP HD HAS BEE SET UP AT [facility] D/W ATTENDING PT WOULD BENEFIT FROM LT[facility] WILL FOLLOW TAMRA VIDAL MD Apr 18, 2021 12:02
--- NOTE | 2021-04-18 12:55 | PDOC ---
[facility] [facility] PROGRESS NOTE Date of Service DOS: DATE: 04/18/21 TIME: 12:54 Chief Complaint Chief Complaint Severe metabolic encephalopathy secondary to uremia Obstructive uropathy Possible ESRD Hydronephrosis New dialysis Probable bladder cancer CARLINE Hyperkalemia Low magnesium Uremia Anemia Iron deficiency Hyperphosphatemia Hypocalcemia Anion gap metabolic acidosis Rhabdomyolysis Hypertension Probable noncompliance History of Present Illness History of Present Illness 04/18/2021 Patient seen and examined Chart reviewed Discussed with RN Discussed with nephrology 04/17/2021 Patient seen exam He has 2 daughters at his bedside there are good support for him Discussed with RN Chart reviewed He just got back from dialysis Appears more alert Eating much The patient is a pleasant 61-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 He does not have any history of diabetes or hypertension, but today presented with a real high BUN of 122 and a creatinine of 22. We rechecked his labs, his BUN here is 144 and creatinine of 23. He also has the other sequela of chronic renal insufficiency, such as hypocalcemia, hyperphosphatemia, hypertension and anemia. I suspect he has had blood pressure out control for many years. He is probably going to need dialysis. We are going to admit the patient and consult Dr. Pimentel. 04/16/2021 Patient seen and examined Discussed patient's disposition with family member in room, she states that his mental status/confusion has improved Patient seen in dialysis, awake, alert, appears well in NAD Chart reviewed Discussed with RN 04/15/2021 Patient seen and examined Patient is awake, alert, in NAD Covarrubias catheter to BSD; hematuria noted residential monitor Chart reviewed Discussed with RN Vitals/I&O Vitals/I&O: Vital Signs Date Time Temp Pulse Resp B/P (MAP) Pulse Ox O2 Delivery O2 Flow Rate FiO2 04/18/21 10:33 100.0 74 16 139/69 (92) 96 Room Air 100.0 I & O 04/17/21 04/17/21 04/18/21 15:00 23:00 07:00 Intake Total 500 ml 490 ml 0 ml Output Total 1450 ml Balance 500 ml 490 ml -1450 ml Physical Exam General: Alert, Oriented X3, Cooperative, No acute distress Heart: Other (AFIB with RVR) Lungs: Clear Abdomen: Soft Extremities: No edema, Normal pulses Skin: No significant lesion Labs Labs: Laboratory Tests Test 04/18/21 04:30 Sodium Level 143 mmol/L (136-145) Potassium Level 3.9 mmol/L (3.5-5.1) Chloride Level 107 mmol/L (98-107) Carbon Dioxide Level 25 mmol/L (21-32) Anion Gap 11 (6-14) Blood Urea Nitrogen 24 mg/dL (8-26) Creatinine 6.2 mg/dL (0.7-1.3) Estimated GFR (Cockcroft-Gault) 11.2 Glucose Level 83 mg/dL (70-99) Calcium Level 6.2 mg/dL (8.5-10.1) Phosphorus Level 3.2 mg/dL (2.6-4.7) Magnesium Level 1.6 mg/dL (1.8-2.4) Assessment and Plan Assessmemt and Plan Problems Medical Problems: (1) Bladder mass Status: Acute (2) Confusion Status: Acute (3) Hyperkalemia Status: Acute (4) Hyperphosphatemia Status: Acute (5) Hyperuricemia Status: Acute (6) Hypocalcemia Status: Acute (7) Obstructive nephropathy Status: Acute (8) Uremia Status: Acute Severe metabolic encephalopathy secondary to uremia Obstructive uropathy Possible ESRD Hydronephrosis New dialysis Probable bladder cancer CARLINE Hyperkalemia Low magnesium Uremia Anemia Iron deficiency Hyperphosphatemia Hypocalcemia Anion gap metabolic acidosis Rhabdomyolysis Hypertension Probable noncompliance Plan Long-term acute care evaluation For now continue the following; Cardiac monitoring Continued dialysis per nephrology He eventually will need urology surgical procedure for the bladder mass (urology team will be back on May 08) I have consulted hematology oncology Home meds DVT prophylaxis Full code Continue Covarrubias to bedside drainage Encourage p.o. intake Trend labs Long-term prognosis guarded Comment Review of Relevant I have reviewed the following items kirstie (where applicable) has been applied. Justifications for Admission Other Justification GIACOMO MUKHERJEE III DO Apr 18, 2021 12:54
[2021-04-18 14:15] VITALS: BP 114/70
--- NOTE | 2021-04-18 14:24 | PDOC ---
PROGRESS NOTES Date of Service: DATE: 04/18/21 TIME: 14:24 Subjective Subjective No new complaints. Objective Objective Vital Signs Date Time Temp Pulse Resp B/P (MAP) Pulse Ox O2 Delivery O2 Flow Rate FiO2 04/18/21 14:15 99.3 91 16 114/70 (85) 99 Room Air 99.3 Intake and Output 04/18/21 07:00 Intake Total 990 ml Output Total 1450 ml Balance -460 ml Intake Oral 990 ml Output Urine Total 1450 ml # Voids 2 Physical Exam Abdomen: Soft Heart: Other (AFIB with RVR) Extremities: No edema, Normal pulses General: Alert, Oriented X3, Cooperative, No acute distress HEENT: Atraumatic, Mucous membr. moist/pink Lungs: Clear to auscultation MUSCULOSKELETAL: Osteoarthritic changes both hands Neuro: Normal speech, Sensation intact Psych/Mental Status: Mental status NL, Mood NL Skin: No significant lesion Assessment Assessment 1. New onset AFIB with RVR , likely precipitated by metabolic issues and anemia, presently back in SR 2. CARLINE, hyperkalemia; uremic. HD initiated 3. Obstructive uropathy, bilateral hydronephrosis 4. Bladder mass. concerns for bladder CA 5. Metabolic acidosis 6. Hypocalcemia 7. Anemia; post transfusion 8. Hypertension; controlled 9. Encephalopathy 10. Hypomagnesemia 11. Hematuria Recommendations Continue metoprolol TTE as outpatient. No ASA/OAC with anemia at this time. ECASA 81 mg when clear with others Transfuse as warranted Follow renal recs Supportive care Plan Plan of Care Problems Medical Problems: (1) Bladder mass Status: Acute (2) Confusion Status: Acute (3) Hyperkalemia Status: Acute (4) Hyperphosphatemia Status: Acute (5) Hyperuricemia Status: Acute (6) Hypocalcemia Status: Acute (7) Obstructive nephropathy Status: Acute (8) Uremia Status: Acute Comment Review of Relevant I have reviewed the following items kirstie (where applicable) has been applied. Labs Laboratory Tests Test 04/18/21 04:30 Sodium Level 143 mmol/L (136-145) Potassium Level 3.9 mmol/L (3.5-5.1) Chloride Level 107 mmol/L (98-107) Carbon Dioxide Level 25 mmol/L (21-32) Anion Gap 11 (6-14) Blood Urea Nitrogen 24 mg/dL (8-26) Creatinine 6.2 mg/dL (0.7-1.3) Estimated GFR (Cockcroft-Gault) 11.2 Glucose Level 83 mg/dL (70-99) Calcium Level 6.2 mg/dL (8.5-10.1) Phosphorus Level 3.2 mg/dL (2.6-4.7) Magnesium Level 1.6 mg/dL (1.8-2.4) Microbiology 04/14/21 Blood Culture - Preliminary, Resulted NO GROWTH AFTER 4 DAYS Medications Current Medications Magnesium Sulfate 50 ml @ 25 mls/hr 1X ONCE IV ; Start 04/18/21 at 14:30; Stop 04/18/21 at 16:29 Vitals/I & O Vital Sign - Last 24 Hours 04/17/21 04/17/21 04/17/21 04/17/21 15:00 19:31 19:51 20:42 Temp 99.5 100.6 99.5 100.6 Pulse 80 87 87 Resp 16 16 B/P (MAP) 126/80 (95) 132/80 (97) 132/80 Pulse Ox 98 96 O2 Delivery Room Air Room Air Room Air 04/17/21 04/18/21 04/18/21 04/18/21 23:03 02:54 07:31 08:00 Temp 100.6 100.1 99.6 100.6 100.1 99.6 Pulse 92 80 85 Resp 16 16 16 B/P (MAP) 133/84 (100) 143/79 (100) 127/79 (95) Pulse Ox 94 95 95 O2 Delivery Room Air Room Air Room Air Room Air 04/18/21 04/18/21 04/18/21 04/18/21 08:58 08:58 10:33 14:15 Temp 100.0 99.3 100.0 99.3 Pulse 82 85 74 91 Resp 16 16 B/P (MAP) 127/79 127/79 139/69 (92) 114/70 (85) Pulse Ox 96 99 O2 Delivery Room Air Room Air Intake and Output 04/17/21 04/17/21 04/18/21 15:00 23:00 07:00 Intake Total 500 ml 490 ml 0 ml Output Total 1450 ml Balance 500 ml 490 ml -1450 ml VIRGINIA PRADO MD Apr 18, 2021 14:24
[2021-04-18] MEDS ORDERED: MAGNESIUM SULFATE 2GM 50 ML IV ONE (14:30)
[2021-04-18 19:47] VITALS: BP 101/60
[2021-04-18 23:28] VITALS: BP 114/73
[2021-04-19 02:59] VITALS: BP 110/75
[2021-04-19] MEDS: IV NORMAL SALINE 1000ML BAG 1,000 ML IV SCH ×2 (06:18→17:45)
[2021-04-19 06:29] VITALS: BP 118/71
[2021-04-19] MEDS: SEVELAMER CARBONATE 800 MG TABLET. PO SCH ×3 (08:16→17:46)
[2021-04-19] MEDS: FOLIC/VIT B COMP W-C (RENAL) TABLET. PO SCH (08:16)
[2021-04-19] MEDS: TAMSULOSIN 0.4 MG CAP.ER.24H. PO SCH (08:16)
[2021-04-19] MEDS: METOPROLOL TART IMMED RELEASE 50 MG TABLET. PO SCH ×2 (08:16→21:29)
[2021-04-19] MEDS ORDERED: DIALYSIS PATIENT. MC PRN (08:45)
[2021-04-19] MEDS ORDERED: IV NORMAL SALINE 1000ML BAG 1,000 ML IV PRN ×2 (08:45)
--- NOTE | 2021-04-19 09:39 | PDOC ---
DATE OF SERVICE DATE: 04/19/21 TIME: 09:38 SUBJECTIVE ROS seen during dialysis No acute concerns or complaints OBJECTIVE Vital Signs Vital Signs Date Time Temp Pulse Resp B/P (MAP) Pulse Ox O2 Delivery O2 Flow Rate FiO2 04/19/21 08:16 72 118/71 04/19/21 06:29 98.5 16 100 Room Air 98.5 I & 0 Intake and Output 04/19/21 07:00 Intake Total 500 ml Output Total 2600 ml Balance -2100 ml Intake Oral 500 ml Output Urine Total 2600 ml PHYSICAL EXAM Physical Exam General Appearance: no apparent distress Skin: warm Respiratory: bilateral CTA Heart: S1S2 Abdomen: soft, bowel sounds present Genitourinary: prescott + Extremities: pulses present, no edema, Neurology: alert, oriented, follow commands DIAGNOSIS/ASSESSMENT Assessment & Plan CARLNIE - ATN , requiring dialysis , initiated last week , currently MWF schedule . Seen during treatment, Tolerating well. Continue as ordered. Lito Molina . No labs this morning Access Temp HDC . Will need Tunneled HDC if no improvement in renal function . Supportive care, monitor . Obstructive uropathy Severe Bilat Hydronephrosis - Prescott in place . Urology Hyperkalemia Anemia - Tsats at goal . Will Not starte TAYLA 2/2 Bladder mass. Defer to oncology HypoMg- No labs this morning HypoCa - check Albumin Hypo Phos- poa - monitor Bladder MAss HTN Un controlled - BP's low today COMMENT/RELEVANT DATA Meds Current Medications Medications (Trade) Dose Ordered Sig/Laura Start Time Stop Time Status Last Admin Dose Admin Albumin Human 200 ml @ 200 mls/hr 1X PRN PRN 04/16/21 09:15 04/16/21 15:14 DC Amlodipine Besylate (Norvasc) 5 mg DAILY 04/14/21 18:00 04/18/21 08:58 5 MG Calcium Gluconate (Calcium Gluconate) 1,000 mg 1X ONCE 04/14/21 04:00 04/14/21 04:01 DC 04/14/21 03:57 1,000 MG Clonidine HCl (Catapres) 0.2 mg 1X ONCE 04/14/21 09:45 04/14/21 09:46 DC 04/14/21 10:00 0.2 MG Digoxin (Lanoxin) 500 mcg 1X ONCE 04/15/21 16:45 04/15/21 16:46 DC 04/15/21 17:14 500 MCG Diphenhydramine HCl (Benadryl) 25 mg 1X PRN PRN 04/15/21 11:30 04/16/21 11:29 DC Info (PHARMACY MONITORING -- do not chart) 1 each PRN DAILY PRN 04/19/21 08:45 Iron Sucrose 500 mg/Sodium Chloride 275 ml @ 78.571 mls/ hr 1X ONCE 04/15/21 12:00 04/15/21 15:29 DC 04/15/21 20:14 78.571 MLS/HR Lidocaine HCl (Buffered Lidocaine 1%) 3 ml 1X ONCE 04/15/21 10:45 04/15/21 10:46 DC 04/15/21 11:04 3 ML Magnesium Sulfate 50 ml @ 25 mls/hr 1X ONCE 04/18/21 14:30 04/18/21 16:29 DC 04/18/21 14:39 25 MLS/HR Metoprolol Tartrate (Lopressor Vial) 5 mg 1X ONCE 04/15/21 15:00 04/15/21 15:01 DC 04/15/21 15:05 5 MG Metoprolol Tartrate (Lopressor) 50 mg BID 04/15/21 21:00 04/19/21 08:16 50 MG Ondansetron HCl (Zofran) 4 mg PRN Q6HRS PRN 04/15/21 15:15 04/15/21 15:20 4 MG Sevelamer Carbonate (Renvela) 800 mg TIDWMEALS 04/15/21 12:00 04/19/21 08:16 800 MG Sodium Chloride 1,000 ml @ 400 mls/hr Q2H30M PRN 04/19/21 08:45 04/19/21 20:44 Sodium Chloride (Normal Saline Flush) 10 ml 1X PRN PRN 04/16/21 09:15 04/17/21 09:14 DC Tamsulosin HCl (Flomax) 0.4 mg DAILY 04/14/21 18:00 04/19/21 08:16 0.4 MG Vitamin B Complex/ Vitamin C (Genie-Seda) 1 tab DAILY 04/15/21 12:00 04/19/21 08:16 1 TAB Results All relevant outside records, renal labs, imaging studies, telemetry/EKG's were reviewed. Justicifation of Admission Dx: Justifications for Admission: Justification of Admission Dx: Yes JIN NEGRON MD Apr 19, 2021 09:39
--- NOTE | 2021-04-19 11:27 | PDOC ---
DHIRAJ ROBERTSON SUPERVISOR NUCLEAR MEDICINE 04/19/21 1127: CARDIO Progress Notes Date and Time Date of Service 04/19/21 Time of Evaluation 1120 Subjective Subjective: No Chest Pain, No shortness of breath, No Palpitations Vitals Vitals Vital Signs Date Time Temp Pulse Resp B/P (MAP) Pulse Ox O2 Delivery O2 Flow Rate FiO2 04/19/21 08:16 72 118/71 04/19/21 08:00 Room Air 04/19/21 06:29 98.5 16 100 98.5 Weight Weight [ ] Input and Output Intake and Output Intake and Output 04/19/21 07:00 Intake Total 500 ml Output Total 2600 ml Balance -2100 ml Intake Oral 500 ml Output Urine Total 2600 ml Microbiology Micro Microbiology 04/14/21 Blood Culture - Final, Complete NO GROWTH AFTER 5 DAYS Review of Systems Constitutional: yes: weakness, alert, oriented Ears/Nose/Throat: Yes: no symptom reported Eyes: Yes: no symptom reported Pulmonary: Yes no symptom reported Gastrointestional: Yes: nausea Genitourinary: Yes: no symptom reported Musculoskeletal: Yes: no symptom reported Skin: Yes no symptom reported Psychiatric/Neurological: Yes: no symptom reported Endocrine: Yes: no symptom reported Hematologic/Lymphatic: Yes: no symptom reported Physical Exam HEENT: Neck Supple W Full Motion Chest: Symmetric LUNGS: Clear to Auscultation Heart: RRR Abdomen: Soft N/T Extremities: No Calf Tenderness Neurology: alert, oriented, follow commands Assessment Assessment 1. New onset AFIB with RVR , likely precipitated by metabolic issues and anemia, presently back in SR 2. CARLINE, hyperkalemia; uremic. HD initiated 3. Obstructive uropathy, bilateral hydronephrosis 4. Bladder mass. concerns for bladder CA 5. Metabolic acidosis 6. Hypocalcemia 7. Anemia; post transfusion 8. Hypertension; controlled 9. Encephalopathy 10. Hypomagnesemia; replaced 11. Hematuria Recommendations Continue metoprolol for rate control TTE and event monitor as an outpatient. No ASA/OAC with anemia at this time. ECASA 81 mg upon discharge if okay with others Transfuse as warranted Follow renal recs Supportive care Follow up with application project leader, Dr. Elizabeth as scheduled Justicifation of Admission Dx: Justifications for Admission: Justification of Admission Dx: Yes ARCELIA ELIZABETH MD 04/19/21 1625: CARDIO Progress Notes Assessment Assessment Patient seen and evaluated. I agree with our nurse practitioners assessment and plan. New onset AFIB with RVR , likely precipitated by metabolic issues and anemia. Back in sinus rhythm. Continue medical treatment. Outpatient monitor. CARLINE, hyperkalemia; uremic. HD initiated as per renal. Obstructive uropathy, bilateral hydronephrosis Bladder mass. concerns for bladder CA Metabolic acidosis Anemia; post transfusion Hypertension; controlled Encephalopathy Hypomagnesemia; replaced Hematuria DHIRAJ ROBERTSON APRN Apr 19, 2021 11:27 ARCELIA ELIZABETH MD Apr 19, 2021 16:25
--- NOTE | 2021-04-19 12:09 | PDOC ---
[facility] PROGRESS NOTE Date of Service DOS: DATE: 04/19/21 TIME: 12:08 Chief Complaint Chief Complaint Severe metabolic encephalopathy secondary to uremia Obstructive uropathy Possible ESRD Hydronephrosis New dialysis Probable bladder cancer CARLINE Hyperkalemia Low magnesium Uremia Anemia Iron deficiency Hyperphosphatemia Hypocalcemia Anion gap metabolic acidosis Rhabdomyolysis Hypertension Probable noncompliance History of Present Illness History of Present Illness 04/19/2021 Patient seen and examined Discussed with RN He is currently on dialysis Chart reviewed Awaiting possible transfer to long-term acute care if possible 04/18/2021 Patient seen and examined Chart reviewed Discussed with RN Discussed with nephrology 04/17/2021 Patient seen exam He has 2 daughters at his bedside there are good support for him Discussed with RN Chart reviewed He just got back from dialysis Appears more alert Eating much The patient is a pleasant 61-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 He does not have any history of diabetes or hypertension, but today presented with a real high BUN of 122 and a creatinine of 22. We rechecked his labs, his BUN here is 144 and creatinine of 23. He also has the other sequela of chronic renal insufficiency, such as hypocalcemia, hyperphosphatemia, hypertension and anemia. I suspect he has had blood pressure out control for many years. He is probably going to need dialysis. We are going to admit the patient and consult Dr. Pimentel. 04/16/2021 Patient seen and examined Discussed patient's disposition with family member in room, she states that his mental status/confusion has improved Patient seen in dialysis, awake, alert, appears well in NAD Chart reviewed Discussed with RN 04/15/2021 Patient seen and examined Patient is awake, alert, in NAD Covarrubias catheter to BSD; hematuria noted monitoring manager Chart reviewed Discussed with RN Vitals/I&O Vitals/I&O: Vital Signs Date Time Temp Pulse Resp B/P (MAP) Pulse Ox O2 Delivery O2 Flow Rate FiO2 04/19/21 08:16 72 118/71 04/19/21 08:00 Room Air 04/19/21 06:29 98.5 16 100 98.5 I & O 04/18/21 04/18/21 04/19/21 15:00 23:00 07:00 Intake Total 500 ml 0 ml 0 ml Output Total 400 ml 1300 ml 900 ml Balance 100 ml -1300 ml -900 ml Physical Exam General: Alert, Oriented X3, Cooperative, No acute distress Heart: Other (AFIB with RVR) Lungs: Clear Abdomen: Soft Extremities: No edema, Normal pulses Skin: No significant lesion Assessment and Plan Assessmemt and Plan Problems Medical Problems: (1) Bladder mass Status: Acute (2) Confusion Status: Acute (3) Hyperkalemia Status: Acute (4) Hyperphosphatemia Status: Acute (5) Hyperuricemia Status: Acute (6) Hypocalcemia Status: Acute (7) Obstructive nephropathy Status: Acute (8) Uremia Status: Acute Severe metabolic encephalopathy secondary to uremia Obstructive uropathy Possible ESRD Hydronephrosis New dialysis Probable bladder cancer CARLINE Hyperkalemia Low magnesium Uremia Anemia Iron deficiency Hyperphosphatemia Hypocalcemia Anion gap metabolic acidosis Rhabdomyolysis Hypertension Probable noncompliance Plan Long-term acute care evaluation in progress For now continue the following; Cardiac monitoring Continued dialysis per nephrology He eventually will need urology surgical procedure for the bladder mass (urology team will be back on May 08) I have consulted hematology oncology Home meds DVT prophylaxis Full code Continue Covarrubias to bedside drainage Encourage p.o. intake Trend labs Long-term prognosis guarded Comment Review of Relevant I have reviewed the following items kirstie (where applicable) has been applied. Medications: Current Medications Medications (Trade) Dose Ordered Sig/Laura Route PRN Reason Start Time Stop Time Status Last Admin Dose Admin Magnesium Sulfate 50 ml @ 25 mls/hr 1X ONCE IV 04/18/21 14:30 04/18/21 16:29 DC 04/18/21 14:39 Justifications for Admission Other Justification GIACOMO MUKHERJEE III DO Apr 19, 2021 12:09
--- NOTE | 2021-04-19 12:10 | SNU/HH DC ---
DISCHARGE ORDERS DISCHARGE INFORMATION: FINAL DIAGNOSIS Problems Medical Problems: (1) Bladder mass Status: Acute (2) Confusion Status: Acute (3) Hyperkalemia Status: Acute (4) Hyperphosphatemia Status: Acute (5) Hyperuricemia Status: Acute (6) Hypocalcemia Status: Acute (7) Obstructive nephropathy Status: Acute (8) Uremia Status: Acute CONDITION ON DISCHARGE: Stable CODE STATUS: Code Status: Full LONG-TERM: SNF STAY <30 DAYS: No HOSPICE: HOSPICE EVAL & TREAT: No LTAC: ADMIT TO LTAC: Yes POST DISCHARGE ORDERS: DIET AFTER DISCHARGE: Renal TREATMENT/EQUIPMENT ORDERS: Physical Therapy For: Evalulation/Treatment Occupational Therapy For: Evaluation/Treatment DISCHARGE MEDICATIONS: Home Meds Active Scripts Cyclobenzaprine Hcl (CYCLOBENZAPRINE HCL) 10 Mg Tablet, 1 TAB PO TID, #30 TAB Prov:BLANQUITA COBB APRN 04/18/16 Naproxen (NAPROXEN) 500 Mg Tablet.dr, 1 TAB PO BID, #60 TAB 2 Refills Prov:BLANQUITA COBB APRN 04/18/16 GIACOMO MUKHERJEE III DO Apr 19, 2021 12:10
[2021-04-19 15:01] VITALS: BP 157/76
--- NOTE | 2021-04-19 15:13 | NUR ---
SS following up with discharge planning. SS reviewed pt chart and discussed with pt RN. Pt is currently on room air. COVID19 negative. Cardiology and Nephrology following. Pt has confirmed chair time for outpatient hemodialysis Monday, , and Monday at 1015 at [facility], ; fax [phone]. Pt first start date for dialysis now scheduled for 04/22/2021 at 1000. Pt's RN notified. PT/OT ordered. SS will continue to follow for discharge planning.
[2021-04-19 19:15] VITALS: BP 116/74
[2021-04-19 23:00] VITALS: BP 123/82
[2021-04-20 03:10] VITALS: BP 112/75
[2021-04-20 07:20] VITALS: BP 124/81
--- NOTE | 2021-04-20 08:18 | PDOC ---
DHIRAJ ROBERTSON SPOOLING MACHINE OPERATOR 04/20/21 0818: CARDIO Progress Notes Date and Time Date of Service 04/20/21 Time of Evaluation 1125 Subjective Subjective: No Chest Pain, No shortness of breath, No Palpitations Vitals Vitals Vital Signs Date Time Temp Pulse Resp B/P (MAP) Pulse Ox O2 Delivery O2 Flow Rate FiO2 04/20/21 07:20 99.5 80 18 124/81 (95) 97 Room Air 99.5 Weight Weight [ ] Input and Output Intake and Output Intake and Output 04/20/21 07:00 Intake Total 1155 ml Output Total 1150 ml Balance 5 ml Intake Oral 1155 ml Output Urine Total 1150 ml Microbiology Micro Microbiology 04/14/21 Blood Culture - Final, Complete NO GROWTH AFTER 5 DAYS Review of Systems Constitutional: yes: weakness, alert, oriented Ears/Nose/Throat: Yes: no symptom reported Eyes: Yes: no symptom reported Pulmonary: Yes no symptom reported Gastrointestional: Yes: nausea Genitourinary: Yes: no symptom reported Musculoskeletal: Yes: no symptom reported Skin: Yes no symptom reported Psychiatric/Neurological: Yes: no symptom reported Endocrine: Yes: no symptom reported Hematologic/Lymphatic: Yes: no symptom reported Physical Exam HEENT: Neck Supple W Full Motion Chest: Symmetric LUNGS: Clear to Auscultation Heart: RRR Abdomen: Soft N/T Extremities: No Calf Tenderness Neurology: alert, oriented, follow commands Assessment Assessment 1. New onset AFIB with RVR , likely precipitated by metabolic issues and anemia, presently back in SR 2. CARLINE, hyperkalemia; uremic. HD initiated 3. Obstructive uropathy, bilateral hydronephrosis 4. Bladder mass. concerns for bladder CA 5. Metabolic acidosis 6. Hypocalcemia 7. Anemia; post transfusion 8. Hypertension; controlled 9. Encephalopathy 10. Hypomagnesemia; replaced 11. Hematuria Recommendations Continue metoprolol for rate control TTE and event monitor as an outpatient as arranged No ASA/OAC with anemia at this time. ECASA 81 mg upon discharge if okay with others Follow renal recs Supportive care Follow up with food safety director, Dr. Elizabeth as scheduled Justicifation of Admission Dx: Justifications for Admission: Justification of Admission Dx: Yes ARCELIA ELIZABETH MD 04/20/21 1641: CARDIO Progress Notes Assessment Assessment Patient seen and examined I agree with our nurse practitioners assessment and plan. New onset AFIB with RVR , likely precipitated by metabolic issues and anemia. Today is in sinus rhythm. Continue present treatments including metoprolol. Possible discharge on low-dose aspirin. Outpatient event monitor, echocardiogram and follow-up. CARLINE, hyperkalemia; uremic. HD initiated. Followed by renal. Obstructive uropathy, bilateral hydronephrosis Bladder mass. concerns for bladder CA Metabolic acidosis Hypocalcemia Anemia; post transfusion Hypertension; controlled Encephalopathy Hypomagnesemia; replaced Hematuria DHIRAJ ROBERTSON APRN Apr 20, 2021 08:18 ARCELIA ELIZABETH MD Apr 20, 2021 16:41
[2021-04-20] MEDS: TAMSULOSIN 0.4 MG CAP.ER.24H. PO SCH (08:21)
[2021-04-20] MEDS: SEVELAMER CARBONATE 800 MG TABLET. PO SCH ×3 (08:21→15:46)
[2021-04-20] MEDS: FOLIC/VIT B COMP W-C (RENAL) TABLET. PO SCH (08:21)
[2021-04-20] MEDS: IV NORMAL SALINE 1000ML BAG 1,000 ML IV SCH ×3 (08:21→23:45)
[2021-04-20] MEDS: METOPROLOL TART IMMED RELEASE 50 MG TABLET. PO SCH ×2 (08:23→20:10)
--- NOTE | 2021-04-20 09:17 | PDOC ---
DATE OF SERVICE DATE: 04/20/21 TIME: 09:14 SUBJECTIVE ROS Stable OBJECTIVE Vital Signs Vital Signs Date Time Temp Pulse Resp B/P (MAP) Pulse Ox O2 Delivery O2 Flow Rate FiO2 04/20/21 08:23 80 124/81 04/20/21 07:20 99.5 18 97 Room Air 99.5 I & 0 Intake and Output 04/20/21 07:00 Intake Total 1155 ml Output Total 1150 ml Balance 5 ml Intake Oral 1155 ml Output Urine Total 1150 ml PHYSICAL EXAM Physical Exam General Appearance: no apparent distress Skin: warm Respiratory: bilateral CTA Heart: S1S2 Abdomen: soft, bowel sounds present Genitourinary: prescott + Extremities: pulses present, no edema, Neurology: alert, oriented, follow commands DIAGNOSIS/ASSESSMENT Assessment & Plan CARLINE - ATN , requiring dialysis , initiated last week . Last dialyzed yesterday. O-P chair time at [facility] - dialysis today , seen during treatment, Tolerating well. Continue as ordered. Supportive care, monitor . Access Temp HDC . Tunneled HDC prior to dc - ordered Obstructive uropathy Severe Bilat Hydronephrosis - Prescott in place . Urology Hyperkalemia Anemia - Tsats at goal . Will Not starte TAYLA 2/2 Bladder mass. Defer to oncology HypoMg- No labs this morning HypoCa - check Albumin Hypo Phos- poa - monitor Bladder MAss HTN Un controlled - BP's low today COMMENT/RELEVANT DATA Meds Current Medications Medications (Trade) Dose Ordered Sig/Laura Start Time Stop Time Status Last Admin Dose Admin Albumin Human 200 ml @ 200 mls/hr 1X PRN PRN 04/16/21 09:15 04/16/21 15:14 DC Amlodipine Besylate (Norvasc) 5 mg DAILY 04/14/21 18:00 04/20/21 08:22 5 MG Calcium Gluconate (Calcium Gluconate) 1,000 mg 1X ONCE 04/14/21 04:00 04/14/21 04:01 DC 04/14/21 03:57 1,000 MG Clonidine HCl (Catapres) 0.2 mg 1X ONCE 04/14/21 09:45 04/14/21 09:46 DC 04/14/21 10:00 0.2 MG Digoxin (Lanoxin) 500 mcg 1X ONCE 04/15/21 16:45 04/15/21 16:46 DC 04/15/21 17:14 500 MCG Diphenhydramine HCl (Benadryl) 25 mg 1X PRN PRN 04/15/21 11:30 04/16/21 11:29 DC Info (PHARMACY MONITORING -- do not chart) 1 each PRN DAILY PRN 04/19/21 08:45 Iron Sucrose 500 mg/Sodium Chloride 275 ml @ 78.571 mls/ hr 1X ONCE 04/15/21 12:00 04/15/21 15:29 DC 04/15/21 20:14 78.571 MLS/HR Lidocaine HCl (Buffered Lidocaine 1%) 3 ml 1X ONCE 04/15/21 10:45 04/15/21 10:46 DC 04/15/21 11:04 3 ML Magnesium Sulfate 50 ml @ 25 mls/hr 1X ONCE 04/18/21 14:30 04/18/21 16:29 DC 04/18/21 14:39 25 MLS/HR Metoprolol Tartrate (Lopressor Vial) 5 mg 1X ONCE 04/15/21 15:00 04/15/21 15:01 DC 04/15/21 15:05 5 MG Metoprolol Tartrate (Lopressor) 50 mg BID 04/15/21 21:00 04/20/21 08:23 50 MG Ondansetron HCl (Zofran) 4 mg PRN Q6HRS PRN 04/15/21 15:15 04/15/21 15:20 4 MG Sevelamer Carbonate (Renvela) 800 mg TIDWMEALS 04/15/21 12:00 04/20/21 08:21 800 MG Sodium Chloride 1,000 ml @ 400 mls/hr Q2H30M PRN 04/19/21 08:45 04/19/21 20:44 DC Sodium Chloride (Normal Saline Flush) 10 ml 1X PRN PRN 04/16/21 09:15 04/17/21 09:14 DC Tamsulosin HCl (Flomax) 0.4 mg DAILY 04/14/21 18:00 04/20/21 08:21 0.4 MG Vitamin B Complex/ Vitamin C (Genie-Seda) 1 tab DAILY 04/15/21 12:00 04/20/21 08:21 1 TAB Results All relevant outside records, renal labs, imaging studies, telemetry/EKG's were reviewed. Justicifation of Admission Dx: Justifications for Admission: Justification of Admission Dx: Yes JIN NEGRON MD Apr 20, 2021 09:16
--- NOTE | 2021-04-20 09:20 | CARD ---
MR#: [id number] Date of Study: 04/19/2021 Ordering Physician: DHIRAJ ROBERTSON, Referring Physician: DHIRAJ ROBERTSON, Tech: Grecia Carter, [facility] APPROVED REPORT EXAM: Two-dimensional and M-mode echocardiogram with Doppler and color Doppler. Other Information Quality : GoodHR: 83bpm INDICATION Atrial Fibrillation RISK FACTORS Hypertension 2D DIMENSIONS Left Atrium(2D)4.0 (1.6-4.0cm)IVSd1.2 (0.7-1.1cm) Aortic Root(2D)3.5 (2.0-3.7cm)LVDd5.4 (3.9-5.9cm) LVOT Diameter2.1 (1.8-2.4cm)PWd1.1 (0.7-1.1cm) LVDs3.3 (2.5-4.0cm)FS (%) 37.9 % SV94.6 mlLVEF(%)67.5 (>50%) Aortic Valve AoV Peak Sean.181.9cm/sAoV VTI30.7cm AO Peak GR.13.2mmHgLVOT VTI 27.53cm AO Mean GR.8mmHg Mitral Valve MV E Jxmwvwlq05.7cm/sMV E Peak Gr.5mmHg MV DECEL [id number] A Irfgcros02.4cm/s MV E Mean Gr.3mmHgE/A Ratio0.9 TDI Lateral E' P. V11.26cm/sMedial E' P. V9.78cm/s E/Lateral E'7.3E/Medial E'8.5 Tricuspid Valve TR P. Csswfwbi230ns/sRAP SUASEDSN3wfOa TR Peak Gr.60eeNzKMFZ70euSv LEFT VENTRICLE The left ventricle is normal size. There is mild concentric left ventricular hypertrophy. The left ve ntricular systolic function is normal. The Ejection Fraction is 55-60%. There is normal LV segmental wall motion. Transmitral Doppler flow pattern is Grade I-abnormal relaxation pattern. RIGHT VENTRICLE The right ventricle is normal size. There is normal right ventricular wall thickness. The right ventr icular systolic function is normal. ATRIA The left atrium size is normal. The right atrium is borderline dilated. The interatrial septum is int act with no evidence for an atrial septal defect or patent foramen ovale as noted on 2-D or Doppler i maging. AORTIC VALVE The aortic valve is normal in structure and function. Doppler and Color Flow revealed no significant aortic regurgitation. Calculated aortic valve area is 3.40 cm2 with maximum pressure gradient of 13 m mHg and mean pressure gradient of 7 mmHg. MITRAL VALVE The mitral valve is normal in structure and function. There is no evidence of mitral valve prolapse. There is no mitral valve stenosis. Doppler and Color-flow revealed trace mitral regurgitation. TRICUSPID VALVE The tricuspid valve is normal in structure and function. Doppler and Color Flow revealed trace tricus pid regurgitation with an estimated PAP of 37 mmHg. There is no tricuspid valve stenosis. PULMONIC VALVE The pulmonary valve is normal in structure and function. Doppler and Color Flow revealed trace to mil d pulmonic valvular regurgitation. GREAT VESSELS The aortic root is normal in size. The IVC is normal in size and collapses >50% with inspiration. PERICARDIAL EFFUSION There is no evidence of significant pericardial effusion. Critical Notification Critical Value: No <Conclusion> The left ventricular systolic function is normal. The Ejection Fraction is 55-60%. There is normal LV segmental wall motion. Trace mitral regurgitation. Trace tricuspid regurgitation with an estimated PAP of 37 mmHg. There is no evidence of significant pericardial effusion. Signed by : Rodolfo Jordan, Electronically Approved : 04/20/2021 09:20:13
[2021-04-20 10:23] VITALS: BP 118/67
[2021-04-20 11:00] LABS: PROTHROMBIN TIME PATIENT 14.2 SEC (11.7-14.0)
[2021-04-20] MEDS ORDERED: IV NORMAL SALINE 1000ML BAG 1,000 ML IV PRN ×2 (11:15)
[2021-04-20] MEDS ORDERED: DIALYSIS PATIENT. MC PRN (11:15)
--- NOTE | 2021-04-20 12:57 | PDOC ---
[facility] PROGRESS NOTE Date of Service DOS: DATE: 04/20/21 TIME: 12:56 Chief Complaint Chief Complaint Severe metabolic encephalopathy secondary to uremia Obstructive uropathy Possible ESRD Hydronephrosis New dialysis Probable bladder cancer CARLINE Hyperkalemia Low magnesium Uremia Anemia Iron deficiency Hyperphosphatemia Hypocalcemia Anion gap metabolic acidosis Rhabdomyolysis Hypertension Probable noncompliance History of Present Illness History of Present Illness 04/20/2021 Patient seen and examined Discussed with RN Chart reviewed Still awaiting possible transfer to long-term acute care? 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 He does not have any history of diabetes or hypertension, but today presented with a real high BUN of 122 and a creatinine of 22. We rechecked his labs, his BUN here is 144 and creatinine of 23. He also has the other sequela of chronic renal insufficiency, such as hypocalcemia, hyperphosphatemia, hypertension and anemia. I suspect he has had blood pressure out control for many years. He is probably going to need dialysis. We are going to admit the patient and consult Dr. Pimentel. 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 Chart reviewed Discussed with RN Vitals/I&O Vitals/I&O: Vital Signs Date Time Temp Pulse Resp B/P (MAP) Pulse Ox O2 Delivery O2 Flow Rate FiO2 04/20/21 10:23 98.8 71 20 118/67 (84) 99 Room Air 98.8 I & O 04/19/21 04/19/21 04/20/21 15:00 23:00 07:00 Intake Total 225 ml 310 ml 620 ml Output Total 1150 ml Balance 225 ml -840 ml 620 ml Physical Exam General: Alert, Oriented X3, Cooperative, No acute distress Heart: Other (AFIB with RVR) Lungs: Clear Abdomen: Soft Extremities: No edema, Normal pulses Skin: No significant lesion Labs Labs: Laboratory Tests Test 04/20/21 10:36 Prothrombin Time 14.2 SEC (11.7-14.0) Prothromb Time International Ratio 1.1 (0.8-1.1) Assessment and Plan Assessmemt and Plan Problems Medical Problems: (1) Bladder mass Status: Acute (2) Confusion Status: Acute (3) Hyperkalemia Status: Acute (4) Hyperphosphatemia Status: Acute (5) Hyperuricemia Status: Acute (6) Hypocalcemia Status: Acute (7) Obstructive nephropathy Status: Acute (8) Uremia Status: Acute Severe metabolic encephalopathy secondary to uremia Obstructive uropathy Possible ESRD Hydronephrosis New dialysis Probable bladder cancer CARLINE Hyperkalemia Low magnesium Uremia Anemia Iron deficiency Hyperphosphatemia Hypocalcemia Anion gap metabolic acidosis Rhabdomyolysis Hypertension Probable noncompliance Plan Long-term acute care evaluation in progress For now continue the following; Cardiac monitoring Continued dialysis per nephrology He eventually will need urology surgical procedure for the bladder mass (urology team will be back on May 08) I have consulted hematology oncology Home meds DVT prophylaxis Full code Continue Covarrubias to bedside drainage Encourage p.o. intake Trend labs Long-term prognosis guarded Comment Review of Relevant I have reviewed the following items kirstie (where applicable) has been applied. Justifications for Admission Other Justification GIACOMO MUKHERJEE III DO Apr 20, 2021 12:56
--- NOTE | 2021-04-20 15:50 | NUR ---
SS following up with discharge planning. SS reviewed pt chart and discussed with pt RN. Pt is currently on room air. COVID19 negative. Cardiology and Nephrology following. Pt has confirmed chair time for outpatient hemodialysis Monday, , and Monday at 1015 at [facility], ; fax [phone]. Pt first start date for dialysis scheduled for 04/22/2021 at 1000. PT/OT recommended home. SS will continue to follow for discharge planning.
[2021-04-20 18:58] VITALS: BP 113/72
[2021-04-20 22:54] VITALS: BP 119/70
[2021-04-21 02:46] VITALS: BP 124/82
[2021-04-21 07:25] LABS: CALCIUM 6.4 mg/dL (8.5-10.1); GFR 14.3; MAGNESIUM 1.7 mg/dL (1.8-2.4); POTASSIUM 4.1 mmol/L (3.5-5.1)
[2021-04-21 07:30] VITALS: BP 126/65
--- NOTE | 2021-04-21 07:39 | PDOC ---
[facility] [facility] PROGRESS NOTE Date of Service DOS: DATE: 04/21/21 TIME: 07:38 Chief Complaint Chief Complaint Severe metabolic encephalopathy secondary to uremia Obstructive uropathy Possible ESRD Hydronephrosis New dialysis Probable bladder cancer CARLINE Hyperkalemia Low magnesium Uremia Anemia Iron deficiency Hyperphosphatemia Hypocalcemia Anion gap metabolic acidosis Rhabdomyolysis Hypertension Probable noncompliance History of Present Illness History of Present Illness 04/21/2021 Patient seen and examined Discussed with RN Chart reviewed Still awaiting possible transfer to select specialty 04/20/2021 Patient seen and examined Discussed with RN Chart reviewed Still awaiting possible transfer to long-term acute care? 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 He does not have any history of diabetes or hypertension, but today presented with a real high BUN of 122 and a creatinine of 22. We rechecked his labs, his BUN here is 144 and creatinine of 23. He also has the other sequela of chronic renal insufficiency, such as hypocalcemia, hyperphosphatemia, hypertension and anemia. I suspect he has had blood pressure out control for many years. He is probably going to need dialysis. We are going to admit the patient and consult Dr. Pimentel. 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 Chart reviewed Discussed with RN Vitals/I&O Vitals/I&O: Vital Signs Date Time Temp Pulse Resp B/P (MAP) Pulse Ox O2 Delivery O2 Flow Rate FiO2 04/21/21 02:46 99.0 77 16 124/82 (96) 99 Room Air 99.0 I & O 1204/20/21 04/21/21 15:00 23:00 07:00 Intake Total 240 ml 200 ml 200 ml Output Total 600 ml 1600 ml Balance -360 ml 200 ml -1400 ml Physical Exam General: Alert, Oriented X3, Cooperative, No acute distress Heart: Other (AFIB with RVR) Lungs: Clear Abdomen: Soft Extremities: No edema, Normal pulses Skin: No significant lesion Labs Labs: Laboratory Tests Test 04/20/21 10:36 04/21/21 05:30 Prothrombin Time 14.2 SEC (11.7-14.0) Prothromb Time International Ratio 1.1 (0.8-1.1) Sodium Level 140 mmol/L (136-145) Potassium Level 4.1 mmol/L (3.5-5.1) Chloride Level 105 mmol/L (98-107) Carbon Dioxide Level 28 mmol/L (21-32) Anion Gap 7 (6-14) Blood Urea Nitrogen 21 mg/dL (8-26) Creatinine 5.0 mg/dL (0.7-1.3) Estimated GFR (Cockcroft-Gault) 14.3 Glucose Level 78 mg/dL (70-99) Calcium Level 6.4 mg/dL (8.5-10.1) Magnesium Level 1.7 mg/dL (1.8-2.4) Assessment and Plan Assessmemt and Plan Problems Medical Problems: (1) Bladder mass Status: Acute (2) Confusion Status: Acute (3) Hyperkalemia Status: Acute (4) Hyperphosphatemia Status: Acute (5) Hyperuricemia Status: Acute (6) Hypocalcemia Status: Acute (7) Obstructive nephropathy Status: Acute (8) Uremia Status: Acute Severe metabolic encephalopathy secondary to uremia Obstructive uropathy Possible ESRD Hydronephrosis New dialysis Probable bladder cancer CARLINE Hyperkalemia Low magnesium Uremia Anemia Iron deficiency Hyperphosphatemia Hypocalcemia Anion gap metabolic acidosis Rhabdomyolysis Hypertension Probable noncompliance Plan Long-term acute care evaluation in progress For now continue the following; Cardiac monitoring Continued dialysis per nephrology He eventually will need urology surgical procedure for the bladder mass (urology team will be back on May 08) I have consulted hematology oncology Home meds DVT prophylaxis Full code Continue Covarrubias to bedside drainage Encourage p.o. intake Trend labs Long-term prognosis guarded Comment Review of Relevant I have reviewed the following items kirstie (where applicable) has been applied. Justifications for Admission Other Justification GIACOMO MUKHERJEE III DO Apr 21, 2021 07:39
[2021-04-21] MEDS: SEVELAMER CARBONATE 800 MG TABLET. PO SCH ×3 (08:00→17:34)
[2021-04-21] MEDS ORDERED: LIDOCAINE 1%/EPI 1:100,000 20 ML VIAL. ONE (08:31)
[2021-04-21] MEDS ORDERED: MIDAZOLAM HCL/PF 2 MG/2 ML VIAL. ONE (09:24)
[2021-04-21] MEDS ORDERED: fentaNYL PF VIAL 100 MCG/2 ML VIAL ONE (09:24)
--- NOTE | 2021-04-21 09:29 | PDOC ---
CARDIO Progress Notes Date and Time Date of Service 04/21/21 Time of Evaluation 1210 Subjective Subjective: No Chest Pain, No shortness of breath, No Palpitations Vitals Vitals Vital Signs Date Time Temp Pulse Resp B/P (MAP) Pulse Ox O2 Delivery O2 Flow Rate FiO2 04/21/21 07:30 100.2 88 20 126/65 (85) 99 Room Air 100.2 Weight Weight [ ] Input and Output Intake and Output Intake and Output 04/21/21 07:00 Intake Total 640 ml Output Total 2200 ml Balance -1560 ml Intake Oral 640 ml Output Urine Total 2200 ml # Bowel Movements 1 Laboratory Labs Laboratory Tests Test 04/20/21 10:36 04/21/21 05:30 Prothrombin Time 14.2 SEC (11.7-14.0) Prothromb Time International Ratio 1.1 (0.8-1.1) Sodium Level 140 mmol/L (136-145) Potassium Level 4.1 mmol/L (3.5-5.1) Chloride Level 105 mmol/L (98-107) Carbon Dioxide Level 28 mmol/L (21-32) Anion Gap 7 (6-14) Blood Urea Nitrogen 21 mg/dL (8-26) Creatinine 5.0 mg/dL (0.7-1.3) Estimated GFR (Cockcroft-Gault) 14.3 Glucose Level 78 mg/dL (70-99) Calcium Level 6.4 mg/dL (8.5-10.1) Magnesium Level 1.7 mg/dL (1.8-2.4) Microbiology Micro Microbiology 04/14/21 Blood Culture - Final, Complete NO GROWTH AFTER 5 DAYS Review of Systems Constitutional: yes: weakness, alert, oriented Ears/Nose/Throat: Yes: no symptom reported Eyes: Yes: no symptom reported Pulmonary: Yes no symptom reported Gastrointestional: Yes: nausea Genitourinary: Yes: no symptom reported Musculoskeletal: Yes: no symptom reported Skin: Yes no symptom reported Psychiatric/Neurological: Yes: no symptom reported Endocrine: Yes: no symptom reported Hematologic/Lymphatic: Yes: no symptom reported Physical Exam HEENT: Neck Supple W Full Motion Chest: Symmetric LUNGS: Clear to Auscultation Heart: RRR Abdomen: Soft N/T Extremities: No Calf Tenderness Neurology: alert, oriented, follow commands Assessment Assessment 1. New onset AFIB with RVR , likely precipitated by metabolic issues and anemia, presently back in SR 2. CARLINE, hyperkalemia; uremic. HD initiated 3. Obstructive uropathy, bilateral hydronephrosis 4. Bladder mass. concerns for bladder CA 5. Metabolic acidosis 6. Hypocalcemia 7. Anemia; post transfusion 8. Hypertension; controlled 9. Encephalopathy 10. Hypomagnesemia; replaced 11. Hematuria; better 12. Fevers Recommendations Continue metoprolol for rate control TTE and event monitor as an outpatient as arranged No ASA/OAC with anemia at this time. 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 Gordillo as scheduled Justicifation of Admission Dx: Justifications for Admission: Justification of Admission Dx: Yes DHIRAJ ROBERTSON APRN Apr 21, 2021 09:29
[2021-04-21] MEDS ORDERED: MIDAZOLAM HCL/PF 2 MG/2 ML VIAL. IV ONE (09:45)
[2021-04-21] MEDS ORDERED: fentaNYL PF VIAL 100 MCG/2 ML VIAL IV ONE (09:45)
[2021-04-21] MEDS: IV NORMAL SALINE 1000ML BAG 1,000 ML IV SCH ×2 (09:45→19:45)
[2021-04-21] MEDS ORDERED: LIDOCAINE 1%/EPI 1:100,000 20 ML VIAL. INJ ONE (09:45)
--- NOTE | 2021-04-21 10:46 | RAD ---
EXAMINATION: TUNNELED CENTRAL VENOUS CATHETER PLACEMENT (CPT 36348), with fluoroscopic guidance, (CPT 23906) Moderate sedation (CPT fill) HISTORY: Tunneled dialysis the catheter is requested. The patient had the temporary dialysis catheter placed renal failure Flouroscopy-Radiation exposure: Kerma Air Product (in mGycm2): 1 Contrast: None Isovue 300 IV. SEDATION: Under physician supervision, Versed and fentanyl were administered intravenously for moder ate sedation. Pulse oximetry, heart rate, and BP were continuously monitored by a dedicated qualifie d nurse. The physician spent 25 minutes of imbt-ur-xfct sedation time with the patient. Current history and physical and other medical records are reviewed prior to the procedure. CONSENT: Informed consent was obtained. The risks, benefits, potential complications and alternatives were reviewed and all questions answered. ESTIMATED BLOOD LOSS: Less than 20 mL. COMPLICATIONS: None. PROCEDURE: Prior to beginning the procedure, [place] Protocol was used to confirm the patient's identity and p lanned procedure. Maximum sterile barriers including cap, mask, hand hygiene, sterile gloves, steril e gown, large sterile drape and cutaneous antisepsis were used. The existing nontunneled catheter is evaluated and deemed suitable to be used for venous access and s ubsequent creation of a new tunnel into this access. After local anesthetic administration, a guidewi re into the catheter were then passed centrally using fluoroscopic guidance. The intravascular lengt h from the access site to the right atrium was assessed. Peel-away sheath was placed over the wire utilizing fluoroscopic guidance. After infiltrating the skin in the subclavicular region with lidocaine to create a tunnel under the s kin, a short transverse incision was made and 23 cm tip to cuff length catheter was tunneled to the a ccess site and inserted through a peel-away sheath. The catheter was flushed and secured to the skin . The incision in the lower neck was closed using dermabond. A sterile dressing was applied. FINDINGS: The final fluoroscopic image demonstrates catheter tip upper right atrium. No complication s are seen. IMPRESSION: Successful tunneled dialysis catheter placement. PLAN: The catheter is ready for immediate use. Electronically signed by: Brandt Cristobal MD (04/21/2021 10:43 AM) [id number]
--- NOTE | 2021-04-21 10:46 | RAD ---
EXAMINATION: TUNNELED CENTRAL VENOUS CATHETER PLACEMENT (CPT 28591), with fluoroscopic guidance, (CPT 08599) Moderate sedation (CPT fill) HISTORY: Tunneled dialysis the catheter is requested. The patient had the temporary dialysis catheter placed renal failure Flouroscopy-Radiation exposure: Kerma Air Product (in mGycm2): 1 Contrast: None Isovue 300 IV. SEDATION: Under physician supervision, Versed and fentanyl were administered intravenously for moder ate sedation. Pulse oximetry, heart rate, and BP were continuously monitored by a dedicated qualifie d nurse. The physician spent 25 minutes of gvkp-kd-anfu sedation time with the patient. Current history and physical and other medical records are reviewed prior to the procedure. CONSENT: Informed consent was obtained. The risks, benefits, potential complications and alternatives were reviewed and all questions answered. ESTIMATED BLOOD LOSS: Less than 20 mL. COMPLICATIONS: None. PROCEDURE: Prior to beginning the procedure, [place] Protocol was used to confirm the patient's identity and p lanned procedure. Maximum sterile barriers including cap, mask, hand hygiene, sterile gloves, steril e gown, large sterile drape and cutaneous antisepsis were used. The existing nontunneled catheter is evaluated and deemed suitable to be used for venous access and s ubsequent creation of a new tunnel into this access. After local anesthetic administration, a guidewi re into the catheter were then passed centrally using fluoroscopic guidance. The intravascular lengt h from the access site to the right atrium was assessed. Peel-away sheath was placed over the wire utilizing fluoroscopic guidance. After infiltrating the skin in the subclavicular region with lidocaine to create a tunnel under the s kin, a short transverse incision was made and 23 cm tip to cuff length catheter was tunneled to the a ccess site and inserted through a peel-away sheath. The catheter was flushed and secured to the skin . The incision in the lower neck was closed using dermabond. A sterile dressing was applied. FINDINGS: The final fluoroscopic image demonstrates catheter tip upper right atrium. No complication s are seen. IMPRESSION: Successful tunneled dialysis catheter placement. PLAN: The catheter is ready for immediate use. Electronically signed by: Brandt Cristobal MD (04/21/2021 10:43 AM) [id number]
--- NOTE | 2021-04-21 10:51 | NUR ---
SS following up with discharge planning. SS reviewed pt chart and discussed with pt RN. Pt is currently on room air. COVID19 negative. Cardiology and Nephrology following. Pt has confirmed chair time for outpatient hemodialysis Monday, , and Monday at 1015 at [facility], ; fax [phone]. Pt first start date for dialysis scheduled for 04/22/2021 at 1000. PT/OT recommended home. Dr. Granger contacted and requested referral for LTACH. Pt unable to get urology appointment for approximately two more weeks. SS phoned and faxed referral to [facility], ; fax [phone], as requested by physicians. Pt getting permanent tunneled dialysis cath today. SS will continue to follow for discharge planning. Addendum: 04/21/21 at 1234 by MARLENY LUGO SS Pt declined for LTACH by [facility]. Pt did not meet medical criteria. Discharge order on the chart for home with self care. Clinical updates phoned and faxed to [facility].
[2021-04-21 11:08] VITALS: BP 126/66
--- NOTE | 2021-04-21 11:10 | PDOC ---
DATE OF SERVICE DATE: 04/21/21 TIME: 11:09 SUBJECTIVE ROS Stable OBJECTIVE Vital Signs Vital Signs Date Time Temp Pulse Resp B/P (MAP) Pulse Ox O2 Delivery O2 Flow Rate FiO2 04/21/21 11:08 98.7 93 18 126/66 (86) 96 Room Air 98.7 04/21/21 09:53 2.0 I & 0 Intake and Output 04/21/21 07:00 Intake Total 640 ml Output Total 2200 ml Balance -1560 ml Intake Oral 640 ml Output Urine Total 2200 ml # Bowel Movements 1 PHYSICAL EXAM Physical Exam General Appearance: no apparent distress Skin: warm Respiratory: bilateral CTA Heart: S1S2 Abdomen: soft, bowel sounds present Genitourinary: prescott + Extremities: pulses present, no edema, Neurology: alert, oriented, follow commands DIAGNOSIS/ASSESSMENT Assessment & Plan CARLINE - ATN , requiring dialysis , initiated last week . Dialyzed yesterday. O-P chair time at [facility] . Currently no urgent [id number] for dialysis currently Supportive care, monitor . Access Tunneled HDC placed on 04/21/21 Obstructive uropathy Severe Bilat Hydronephrosis - Prescott in place . Urology Hyperkalemia Anemia - Tsats at goal . Will Not starte TAYLA 2/2 Bladder mass. Defer to oncology HypoMg- No labs this morning HypoCa - check Albumin Hypo Phos- poa - monitor Bladder MAss HTN Un controlled - BP's low today COMMENT/RELEVANT DATA Meds Current Medications Medications (Trade) Dose Ordered Sig/Laura Start Time Stop Time Status Last Admin Dose Admin Albumin Human 200 ml @ 200 mls/hr 1X PRN PRN 04/16/21 09:15 04/16/21 15:14 DC Amlodipine Besylate (Norvasc) 5 mg DAILY 04/14/21 18:00 04/20/21 08:22 5 MG Calcium Gluconate (Calcium Gluconate) 1,000 mg 1X ONCE 04/14/21 04:00 04/14/21 04:01 DC 04/14/21 03:57 1,000 MG Cefazolin Sodium/ Dextrose 50 ml @ 100 mls/hr 1X ONCE 04/21/21 09:45 04/21/21 10:14 DC 04/21/21 09:54 100 MLS/HR Clonidine HCl (Catapres) 0.2 mg 1X ONCE 04/14/21 09:45 04/14/21 09:46 DC 04/14/21 10:00 0.2 MG Digoxin (Lanoxin) 500 mcg 1X ONCE 04/15/21 16:45 04/15/21 16:46 DC 04/15/21 17:14 500 MCG Diphenhydramine HCl (Benadryl) 25 mg 1X PRN PRN 04/15/21 11:30 04/16/21 11:29 DC Fentanyl Citrate (Fentanyl 2ml Vial) 50 mcg 1X ONCE 04/21/21 09:45 04/21/21 09:48 DC 04/21/21 09:53 50 MCG Info (PHARMACY MONITORING -- do not chart) 1 each PRN DAILY PRN 04/20/21 11:15 04/21/21 10:50 DC Iron Sucrose 500 mg/Sodium Chloride 275 ml @ 78.571 mls/ hr 1X ONCE 04/15/21 12:00 04/15/21 15:29 DC 04/15/21 20:14 78.571 MLS/HR Lidocaine HCl (Buffered Lidocaine 1%) 3 ml 1X ONCE 04/15/21 10:45 04/15/21 10:46 DC 04/15/21 11:04 3 ML Lidocaine/ Epinephrine (LIDOCAINE 1%-EPI 1:100,000 Multi-Dose) 14 ml 1X ONCE 04/21/21 09:45 04/21/21 09:48 DC 04/21/21 09:53 15 ML Magnesium Sulfate 50 ml @ 25 mls/hr 1X ONCE 04/18/21 14:30 04/18/21 16:29 DC 04/18/21 14:39 25 MLS/HR Metoprolol Tartrate (Lopressor Vial) 5 mg 1X ONCE 04/15/21 15:00 04/15/21 15:01 DC 04/15/21 15:05 5 MG Metoprolol Tartrate (Lopressor) 50 mg BID 04/15/21 21:00 04/20/21 20:10 50 MG Midazolam HCl (Versed) 1 mg 1X ONCE 04/21/21 09:45 04/21/21 09:48 DC 04/21/21 09:53 1 MG Ondansetron HCl (Zofran) 4 mg PRN Q6HRS PRN 04/15/21 15:15 04/15/21 15:20 4 MG Sevelamer Carbonate (Renvela) 800 mg TIDWMEALS 04/15/21 12:00 04/20/21 15:46 800 MG Sodium Chloride 1,000 ml @ 400 mls/hr Q2H30M PRN 04/20/21 11:15 04/20/21 23:14 DC Sodium Chloride (Normal Saline Flush) 10 ml 1X PRN PRN 04/16/21 09:15 04/17/21 09:14 DC Tamsulosin HCl (Flomax) 0.4 mg DAILY 04/14/21 18:00 04/20/21 08:21 0.4 MG Vitamin B Complex/ Vitamin C (Genie-Seda) 1 tab DAILY 04/15/21 12:00 04/20/21 08:21 1 TAB Lab Laboratory Tests Test 04/21/21 05:30 Sodium Level 140 mmol/L (136-145) Potassium Level 4.1 mmol/L (3.5-5.1) Chloride Level 105 mmol/L (98-107) Carbon Dioxide Level 28 mmol/L (21-32) Anion Gap 7 (6-14) Blood Urea Nitrogen 21 mg/dL (8-26) Creatinine 5.0 mg/dL (0.7-1.3) Estimated GFR (Cockcroft-Gault) 14.3 Glucose Level 78 mg/dL (70-99) Calcium Level 6.4 mg/dL (8.5-10.1) Magnesium Level 1.7 mg/dL (1.8-2.4) Results All relevant outside records, renal labs, imaging studies, telemetry/EKG's were reviewed. Justicifation of Admission Dx: Justifications for Admission: Justification of Admission Dx: Yes JIN NEGRON MD Apr 21, 2021 11:10
--- NOTE | 2021-04-21 12:22 | SNU/HH DC ---
DISCHARGE WITH HOME HEALTH DISCHARGE INFORMATION: Final Diagnosis: Problems Medical Problems: (1) Bladder mass Status: Acute (2) Confusion Status: Acute (3) Hyperkalemia Status: Acute (4) Hyperphosphatemia Status: Acute (5) Hyperuricemia Status: Acute (6) Hypocalcemia Status: Acute (7) Obstructive nephropathy Status: Acute (8) Uremia Status: Acute Condition on Discharge: Stable CODE STATUS: Code Status: Full HOME HEALTH: Face to Face: I certify this patient is under my care and that I, or a nurse practitioner or physician's field assistant working with me, had a face to face encounter that meets the physician face to face encounter requirements with this patient on []. Medical Complications: Other (Bladder mass) Half-Way For: Assess Cardiopulm Status RN For Eval/Treatment: Yes Physical Therapy For: Evalulation/Treatment Occupational Therapy For: Evaluation/Treatment Home Health Aide For: Self-care BINGO USHER For: Community Resources Pt Meets Homebound Status: Unsteady balance w/ amb, POST DISCHARGE ORDERS: DIET AFTER DISCHARGE: Cardiac CERTIFICATION STATEMENT: Certification Statement: Certification Statement: Based on the above finding, I certify that this patient is confined to the home and needs intermittent alf care, physical therapy and/or speech therapy, or continues to need occupational therapy.~ This patient is under my care, and I have initiated the establishment of the plan of care.~ This patient will be followed by myself or a community physician who will periodically review the plan of care. Home Meds Active Scripts Cyclobenzaprine Hcl (CYCLOBENZAPRINE HCL) 10 Mg Tablet, 1 TAB PO TID, #30 TAB Prov:BLANQUITA COBB APRN 04/18/16 Naproxen (NAPROXEN) 500 Mg Tablet.dr, 1 TAB PO BID, #60 TAB 2 Refills Prov:BLAQNUITA COBB APRN 04/18/16 GIACOMO MUKHERJEE III DO Apr 21, 2021 12:22
[2021-04-21] MEDS ORDERED: METO50TA6 PO (12:25)
[2021-04-21] MEDS ORDERED: SEVE800T9 PO (12:25)
[2021-04-21] MEDS ORDERED: FOLI0.8T21 PO (12:25)
[2021-04-21] MEDS ORDERED: TAMS0.4C97 PO (12:25)
[2021-04-21] MEDS ORDERED: AMLO-186 PO (12:25)
[2021-04-21] MEDS: METOPROLOL TART IMMED RELEASE 50 MG TABLET. PO SCH ×2 (12:56→21:56)
[2021-04-21] MEDS: TAMSULOSIN 0.4 MG CAP.ER.24H. PO SCH (12:56)
[2021-04-21] MEDS: FOLIC/VIT B COMP W-C (RENAL) TABLET. PO SCH (12:56)
--- NOTE | 2021-04-21 13:01 | DS ---
DATE OF DISCHARGE: 04/21/2021 ADMISSION DIAGNOSIS: Renal failure. DISCHARGE DIAGNOSES: Obstructive uropathy; renal failure; initiation of new dialysis; muscle spasms; bladder mass; hydronephrosis; resolving hyperkalemia; resolving hypomagnesemia; resolving uremia; chronic anemia; resolving hyperphosphatemia; resolving hypocalcemia; anion gap metabolic acidosis, resolving; resolving rhabdomyolysis; resolving hypertension and noncompliance. CONSULTS: Dr. Aguilar and Dr. Pimentel. PROCEDURES: Hemodialysis catheter placement x 2. HOSPITAL COURSE: The patient is a pleasant, middle-aged male who presented with mental status change was noted to be extremely uremic with a BUN of greater than 100 and his creatinine was 11. He also had markers for chronic renal failure with anemia, hyperphosphatemia, hypocalcemia, elevated blood pressure and hyperkalemia. We admitted the patient and got him dialyzed. To our surprise, we also discovered there was a bladder mass causing obstructive uropathy. We placed a Covarrubias. Over the past week or so, we have been dialyzing him, he is doing great. This morning, I saw and examined him. He is at his baseline. We would like to get him to a urologist. We do have Urology come in to [facility] in about 2 weeks. We are going to discharge the patient and have him return for evaluation of this bladder mass. DISPOSITION: Home. ACTIVITY: As tolerated. DIET: Renal. DISCHARGE MEDICATIONS: Please see the MRAD. They are amlodipine 5 a day, folic acid, metoprolol 50 b.i.d., Renvela 800 t.i.d., Flomax 0.4 a day and cyclobenzaprine 10 t.i.d. TOTAL TIME: [address]: Alvaro TID: [id number]
--- NOTE | 2021-04-21 13:03 | PDOC2 ---
CONSULT Date of Consult Date of Consult DATE: 04/21/21 TIME: 12:54 Reason for Consult Reason for Consult: Bladder mass Referring Physician Referring Physician: Dr. Granger Identification/Chief Complaint Chief Complaint Kidney failure Source Source: Chart review, Patient History of Present Illness Reason for Visit: Mr Tamayo is a 61-year-old male who presented to the hospital with confusion. Patient was found with acute kidney failure. Temporary dialysis catheter was placed. He was started on hemodialysis. CT abdomen and pelvis was obtained for further evaluation of acute kidney failure. This showed a large bladder mass causing severe bilateral hydronephrosis. In addition, enlarged prostate which appeared to be contiguous with the bladder mass was noted. No clear evidence of bone metastasis was reported. Medical oncology consultation has been requested due to suspected cancer diagnosis. Patient reports no additional symptoms. Past Medical History Cardiovascular: No pertinent hx Pulmonary: No pertinent hx Renal/: Other (urinary retention ) Endocrine: No pertinent hx Past Surgical History Past Surgical History: No pertinent history Family History Family History: Other (prostate CA ) Social History No ALCOHOL: none Drugs: Marijuana Lives: Alone Current Problem List Problem List Problems Medical Problems: (1) Bladder mass Status: Acute (2) Confusion Status: Acute (3) Hyperkalemia Status: Acute (4) Hyperphosphatemia Status: Acute (5) Hyperuricemia Status: Acute (6) Hypocalcemia Status: Acute (7) Obstructive nephropathy Status: Acute (8) Uremia Status: Acute Current Medications Current Medications Current Medications Calcium Gluconate (Calcium Gluconate) 1,000 mg 1X ONCE IVP Last administered on 04/14/21at 03:57; Start 04/14/21 at 04:00; Stop 04/14/21 at 04:01; Status DC Clonidine HCl (Catapres) 0.2 mg 1X ONCE PO Last administered on 04/14/21at 10:00; Start 04/14/21 at 09:45; Stop 04/14/21 at 09:46; Status DC Metoprolol Tartrate (Lopressor) 25 mg BID PO Last administered on 04/15/21at 09:54; Start 04/14/21 at 14:00; Stop 04/15/21 at 16:08; Status DC Magnesium Sulfate 50 ml @ 25 mls/hr 1X ONCE IV Last administered on 04/14/21at 17:58; Start 04/14/21 at 17:15; Stop 04/14/21 at 19:14; Status DC Tamsulosin HCl (Flomax) 0.4 mg DAILY PO Last administered on 04/20/21at 08:21; Start 04/14/21 at 18:00 Amlodipine Besylate (Norvasc) 5 mg DAILY PO Last administered on 04/20/21at 08:22; Start 04/14/21 at 18:00 Sodium Chloride 1,000 ml @ 100 mls/hr Q10H IV Last administered on 04/20/21at 11:04; Start 04/14/21 at 17:45 Lidocaine HCl (Buffered Lidocaine 1%) 3 ml STK-MED ONCE .ROUTE ; Start 04/15/21 at 10:03; Stop 04/15/21 at 10:04; Status DC Lidocaine HCl (Buffered Lidocaine 1%) 3 ml 1X ONCE INJ Last administered on at 11:04; Start 04/15/21 at 10:45; Stop 04/15/21 at 10:46; Status DC Iron Sucrose 500 mg/Sodium Chloride 275 ml @ 78.571 mls/ hr 1X ONCE IV Last administered on 04/15/21at 20:14; Start 04/15/21 at 12:00; Stop 04/15/21 at 15:29; Status DC Sevelamer Carbonate (Renvela) 800 mg TIDWMEALS PO Last administered on 04/20/21at 15:46; Start 04/15/21 at 12:00 Vitamin B Complex/ Vitamin C (Genie-Seda) 1 tab DAILY PO Last administered on 04/20/21at 08:21; Start 04/15/21 at 12:00 Sodium Chloride 1,000 ml @ 1,000 mls/hr Q1H PRN IV hypotension; Start 04/15/21 at 11:30; Stop 04/15/21 at 17:29; Status DC Diphenhydramine HCl (Benadryl) 25 mg 1X PRN PRN IV ITCHING; Start 04/15/21 at 11:30; Stop 04/16/21 at 11:29; Status DC Diphenhydramine HCl (Benadryl) 25 mg 1X PRN PRN IV ITCHING; Start 04/15/21 at 11:30; Stop 04/16/21 at 11:29; Status DC Sodium Chloride 1,000 ml @ 400 mls/hr Q2H30M PRN IV PATENCY; Start 04/15/21 at 11:30; Stop 04/15/21 at 23:29; Status DC Info (PHARMACY MONITORING -- do not chart) 1 each PRN DAILY PRN MC SEE COMMENTS; Start 04/15/21 at 11:30; Status Cancel Metoprolol Tartrate (Lopressor Vial) 5 mg 1X ONCE IVP Last administered on 04/15/21at 15:05; Start 04/15/21 at 15:00; Stop 04/15/21 at 15:01; Status DC Ondansetron HCl (Zofran) 4 mg PRN Q6HRS PRN IVP NAUSEA/VOMITING Last administered on 04/15/21at 15:20; Start 04/15/21 at 15:15 Metoprolol Tartrate (Lopressor) 50 mg BID PO Last administered on 04/20/21at 20:10; Start 04/15/21 at 21:00 Digoxin (Lanoxin) 500 mcg 1X ONCE IV Last administered on 04/15/21at 17:14; Start 04/15/21 at 16:45; Stop 04/15/21 at 16:46; Status DC Sodium Chloride 1,000 ml @ 1,000 mls/hr Q1H PRN IV hypotension; Start 04/16/21 at 09:15; Stop 04/16/21 at 15:14; Status DC Albumin Human 200 ml @ 200 mls/hr 1X PRN PRN IV Hypotension; Start 04/16/21 at 09:15; Stop 04/16/21 at 15:14; Status DC Sodium Chloride (Normal Saline Flush) 10 ml 1X PRN PRN IV AP catheter pack; Start 04/16/21 at 09:15; Stop 04/17/21 at 09:14; Status DC Sodium Chloride (Normal Saline Flush) 10 ml 1X PRN PRN IV [employer]OR[employer]ED [employer] catheter pack; Start 04/16/21 at 09:15; Stop 04/17/21 at 09:14; Status DC Sodium Chloride 1,000 ml @ 400 mls/hr Q2H30M PRN IV PATENCY; Start 04/16/21 at 09:15; Stop 04/16/21 at 21:14; Status DC Info (PHARMACY MONITORING -- do not chart) 1 each PRN DAILY PRN MC SEE COMMENTS; Start 04/16/21 at 09:15; Status UNV Info (PHARMACY MONITORING -- do not chart) 1 each PRN DAILY PRN MC SEE COMMENTS; Start 04/16/21 at 09:15; Status UNV Sodium Chloride 1,000 ml @ 1,000 mls/hr Q1H PRN IV hypotension; Start 04/17/21 at 07:15; Stop 04/17/21 at 13:14; Status DC Sodium Chloride 1,000 ml @ 400 mls/hr Q2H30M PRN IV PATENCY; Start 04/17/21 at 07:15; Stop 04/17/21 at 19:14; Status DC Info (PHARMACY MONITORING -- do not chart) 1 each PRN DAILY PRN MC SEE COMMENTS; Start 04/17/21 at 07:15; Stop 04/19/21 at 14:32; Status DC Magnesium Sulfate 50 ml @ 25 mls/hr 1X ONCE IV Last administered on 04/18/21at 14:39; Start 04/18/21 at 14:30; Stop 04/18/21 at 16:29; Status DC Sodium Chloride 1,000 ml @ 1,000 mls/hr Q1H PRN IV hypotension; Start 04/19/21 at 08:45; Stop 04/19/21 at 14:44; Status DC Sodium Chloride 1,000 ml @ 400 mls/hr Q2H30M PRN IV PATENCY; Start 04/19/21 at 08:45; Stop 04/19/21 at 20:44; Status DC Info (PHARMACY MONITORING -- do not chart) 1 each PRN DAILY PRN MC SEE COMMENTS; Start 04/19/21 at 08:45 Sodium Chloride 1,000 ml @ 1,000 mls/hr Q1H PRN IV hypotension; Start 04/20/21 at 11:15; Stop 04/20/21 at 17:14; Status DC Sodium Chloride 1,000 ml @ 400 mls/hr Q2H30M PRN IV PATENCY; Start 04/20/21 at 11:15; Stop 04/20/21 at 23:14; Status DC Info (PHARMACY MONITORING -- do not chart) 1 each PRN DAILY PRN MC SEE COMMENTS; Start 04/20/21 at 11:15; Stop 04/21/21 at 10:50; Status DC Lidocaine/ Epinephrine (LIDOCAINE 1%-EPI 1:100,000 Multi-Dose) 20 ml STK-MED ONCE .ROUTE ; Start 04/21/21 at 08:31; Stop 04/21/21 at 08:32; Status DC Midazolam HCl (Versed) 2 mg STK-MED ONCE .ROUTE ; Start 04/21/21 at 09:24; Stop 04/21/21 at 09:24; Status DC Fentanyl Citrate (Fentanyl 2ml Vial) 100 mcg STK-MED ONCE .ROUTE ; Start 04/21/21 at 09:24; Stop 04/21/21 at 09:25; Status DC Cefazolin Sodium/ Dextrose 50 ml @ As Directed STK-MED ONCE IV ; Start 04/21/21 at 09:24; Stop 04/21/21 at 09:25; Status DC Midazolam HCl (Versed) 1 mg 1X ONCE IV Last administered on 04/21/21at 09:53; Start 04/21/21 at 09:45; Stop 04/21/21 at 09:48; Status DC Fentanyl Citrate (Fentanyl 2ml Vial) 50 mcg 1X ONCE IV Last administered on 04/21/21at 09:53; Start 04/21/21 at 09:45; Stop 04/21/21 at 09:48; Status DC Lidocaine/ Epinephrine (LIDOCAINE 1%-EPI 1:100,000 Multi-Dose) 14 ml 1X ONCE INJ Last administered on 04/21/21at 09:53; Start 04/21/21 at 09:45; Stop 04/21/21 at 09:48; Status DC Cefazolin Sodium/ Dextrose 50 ml @ 100 mls/hr 1X ONCE IV Last administered on 04/21/21at 09:54; Start 04/21/21 at 09:45; Stop 04/21/21 at 10:14; Status DC Active Scripts Active Genie-Seda Tablet (Folic Acid/Vitamin B Comp W-C) 0.8 Mg Tablet 1 Tab PO DAILY 30 Days Renvela (Sevelamer Carbonate) 800 Mg Tablet 800 Mg PO TIDWMEALS 30 Days Amlodipine Besylate 5 Mg Tablet 5 Mg PO DAILY 30 Days Metoprolol Tartrate 50 Mg Tablet 50 Mg PO BID 30 Days Flomax (Tamsulosin Hcl) 0.4 Mg Cap.er.24h 0.4 Mg PO DAILY 30 Days Cyclobenzaprine Hcl 10 Mg Tablet 1 Tab PO TID Allergies Allergies: Coded Allergies: No Known Allergies (Verified Allergy, Unknown, 07/07/15) ROS Review of System Negative unless stated otherwise in HPI Physical Exam Physical Exam General: Awake, alert, no distress Head: Atraumatic, no conjunctival icterus, normal oral cavity mucosa Neck: Supple, no lymphadenopathy Chest: No trauma noted Cardiovascular: Regular rhythm, normal rate, no murmurs Respiratory: Bilateral air entry noted, lungs clear to auscultation bilaterally. No accessory muscle use Abdominal: Abdomen is soft, nontender, nondistended. Bowel sounds were normal. No hepatomegaly or splenomegaly Musculoskeletal: No deformity noted Extremities: No edema noted Skin: No rash or lesions Neurologic: Alert and oriented x3, no grossly evident neurologic deficits noted. Full neurological exam was not performed Psychiatric: Appropriate mood and affect Vitals VITALS Vital Signs Date Time Temp Pulse Resp B/P (MAP) Pulse Ox O2 Delivery O2 Flow Rate FiO2 04/21/21 11:08 98.7 93 18 126/66 (86) 96 Room Air 98.7 04/21/21 09:53 2.0 Labs Labs Laboratory Tests Test 04/20/21 10:36 04/21/21 05:30 Prothrombin Time 14.2 SEC (11.7-14.0) Prothromb Time International Ratio 1.1 (0.8-1.1) Sodium Level 140 mmol/L (136-145) Potassium Level 4.1 mmol/L (3.5-5.1) Chloride Level 105 mmol/L (98-107) Carbon Dioxide Level 28 mmol/L (21-32) Anion Gap 7 (6-14) Blood Urea Nitrogen 21 mg/dL (8-26) Creatinine 5.0 mg/dL (0.7-1.3) Estimated GFR (Cockcroft-Gault) 14.3 Glucose Level 78 mg/dL (70-99) Calcium Level 6.4 mg/dL (8.5-10.1) Magnesium Level 1.7 mg/dL (1.8-2.4) Laboratory Tests Test 04/21/21 05:30 Sodium Level 140 mmol/L (136-145) Potassium Level 4.1 mmol/L (3.5-5.1) Chloride Level 105 mmol/L (98-107) Carbon Dioxide Level 28 mmol/L (21-32) Anion Gap 7 (6-14) Blood Urea Nitrogen 21 mg/dL (8-26) Creatinine 5.0 mg/dL (0.7-1.3) Estimated GFR (Cockcroft-Gault) 14.3 Glucose Level 78 mg/dL (70-99) Calcium Level 6.4 mg/dL (8.5-10.1) Magnesium Level 1.7 mg/dL (1.8-2.4) Assessment/Plan Assessment/Plan Assessment: Bladder/prostate mass Acute kidney failure post renal secondary to bladder outlet obstruction, currently on hemodialysis Iron deficiency anemia secondary to bleeding Recommendations: -Reviewed results of CT abdomen and pelvis with the patient. Recommend CT chest and bone scan for staging. Can be completed as outpatient -Check PSA -Recommended urology evaluation with cystoscopy for confirmation diagnosis. This was discussed with the patient. Plan to set up urology consult as outpatient -We will arrange medical oncology follow-up within 1 week for continuation of care. Patient was provided contact information for the office -Transfuse as needed to maintain hemoglobin over 7 -Management of CARLINE per nephrology service EHSAN JOSEPH MD Apr 21, 2021 13:02
--- NOTE | 2021-04-21 16:00 | NUR ---
Assumed care of patient from ROSITA Martin. Agreed with previous nurse assessment. will continue to monitor.
--- NOTE | 2021-04-21 16:35 | PDOC2 ---
NEUROLOGY CONSULT Date of Service DOS: DATE: 04/21/21 TIME: 16:27 Reason for Consult Reason for Consult: Stuttering speech Referring Physician Referring Physician: Dr. Granger Source Source: Caregiver (), Chart review, Patient History of Present Illness History of Present Illness The patient is a 61-year-old right-handed male admitted a week ago with renal failure, confusion, and hypertension. He was started on dialysis. He has a catheter in place. He underwent a head CT at admission, reviewed below. This morning he noticed difficulty speaking. He did not tell anyone. His came and saw him this afternoon and said that he was stuttering. She says that he is better. He was going to be discharged today but we have put that on hold. There is no prior history of stroke, seizure, or head injury. 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, chronic back pain, occasional marijuana, no tobacco or alcohol Current Medications Current Medications Current Medications Calcium Gluconate (Calcium Gluconate) 1,000 mg 1X ONCE IVP Last administered on 04/14/21at 03:57; Start 04/14/21 at 04:00; Stop 04/14/21 at 04:01; Status DC Clonidine HCl (Catapres) 0.2 mg 1X ONCE PO Last administered on 04/14/21at 10:00; Start 04/14/21 at 09:45; Stop 04/14/21 at 09:46; Status DC Metoprolol Tartrate (Lopressor) 25 mg BID PO Last administered on 04/15/21at 09:54; Start 04/14/21 at 14:00; Stop 04/15/21 at 16:08; Status DC Magnesium Sulfate 50 ml @ 25 mls/hr 1X ONCE IV Last administered on 04/14/21at 17:58; Start 04/14/21 at 17:15; Stop 04/14/21 at 19:14; Status DC Tamsulosin HCl (Flomax) 0.4 mg DAILY PO Last administered on 04/21/21at 12:56; Start 04/14/21 at 18:00 Amlodipine Besylate (Norvasc) 5 mg DAILY PO Last administered on 04/21/21at 12:57; Start 04/14/21 at 18:00 Sodium Chloride 1,000 ml @ 100 mls/hr Q10H IV Last administered on 04/20/21at 11:04; Start 04/14/21 at 17:45 Lidocaine HCl (Buffered Lidocaine 1%) 3 ml STK-MED ONCE .ROUTE ; Start 04/15/21 at 10:03; Stop 04/15/21 at 10:04; Status DC Lidocaine HCl (Buffered Lidocaine 1%) 3 ml 1X ONCE INJ Last administered on 04/15/21at 11:04; Start 04/15/21 at 10:45; Stop 04/15/21 at 10:46; Status DC Iron Sucrose 500 mg/Sodium Chloride 275 ml @ 78.571 mls/ hr 1X ONCE IV Last administered on 04/15/21at 20:14; Start 04/15/21 at 12:00; Stop 04/15/21 at 15:29; Status DC Sevelamer Carbonate (Renvela) 800 mg TIDWMEALS PO Last administered on 04/21/21at 12:56; Start 04/15/21 at 12:00 Vitamin B Complex/ Vitamin C (Genie-Seda) 1 tab DAILY PO Last administered on 04/21/21at 12:56; Start 04/15/21 at 12:00 Sodium Chloride 1,000 ml @ 1,000 mls/hr Q1H PRN IV hypotension; Start 04/15/21 at 11:30; Stop 04/15/21 at 17:29; Status DC Diphenhydramine HCl (Benadryl) 25 mg 1X PRN PRN IV ITCHING; Start 04/15/21 at 11:30; Stop 04/16/21 at 11:29; Status DC Diphenhydramine HCl (Benadryl) 25 mg 1X PRN PRN IV ITCHING; Start 04/15/21 at 11:30; Stop 04/16/21 at 11:29; Status DC Sodium Chloride 1,000 ml @ 400 mls/hr Q2H30M PRN IV PATENCY; Start 04/15/21 at 11:30; Stop 04/15/21 at 23:29; Status DC Info (PHARMACY MONITORING -- do not chart) 1 each PRN DAILY PRN MC SEE COMMENTS; Start 04/15/21 at 11:30; Status Cancel Metoprolol Tartrate (Lopressor Vial) 5 mg 1X ONCE IVP Last administered on 04/15/21at 15:05; Start 04/15/21 at 15:00; Stop 04/15/21 at 15:01; Status DC Ondansetron HCl (Zofran) 4 mg PRN Q6HRS PRN IVP NAUSEA/VOMITING Last administered on 04/15/21at 15:20; Start 04/15/21 at 15:15 Metoprolol Tartrate (Lopressor) 50 mg BID PO Last administered on 04/21/21at 12:56; Start 04/15/21 at 21:00 Digoxin (Lanoxin) 500 mcg 1X ONCE IV Last administered on 04/15/21at 17:14; Start 04/15/21 at 16:45; Stop 04/15/21 at 16:46; Status DC Sodium Chloride 1,000 ml @ 1,000 mls/hr Q1H PRN IV hypotension; Start 04/16/21 at 09:15; Stop 04/16/21 at 15:14; Status DC Albumin Human 200 ml @ 200 mls/hr 1X PRN PRN IV Hypotension; Start 04/16/21 at 09:15; Stop 04/16/21 at 15:14; Status DC Sodium Chloride (Normal Saline Flush) 10 ml 1X PRN PRN IV AP catheter pack; Start 04/16/21 at 09:15; Stop 04/17/21 at 09:14; Status DC Sodium Chloride (Normal Saline Flush) 10 ml 1X PRN PRN IV [employer]PERATING [employer] catheter pack; Start 04/16/21 at 09:15; Stop 04/17/21 at 09:14; Status DC Sodium Chloride 1,000 ml @ 400 mls/hr Q2H30M PRN IV PATENCY; Start 04/16/21 at 09:15; Stop 04/16/21 at 21:14; Status DC Info (PHARMACY MONITORING -- do not chart) 1 each PRN DAILY PRN MC SEE COMMENTS; Start 04/16/21 at 09:15; Status UNV Info (PHARMACY MONITORING -- do not chart) 1 each PRN DAILY PRN MC SEE COMMENTS; Start 04/16/21 at 09:15; Status UNV Sodium Chloride 1,000 ml @ 1,000 mls/hr Q1H PRN IV hypotension; Start 04/17/21 at 07:15; Stop 04/17/21 at 13:14; Status DC Sodium Chloride 1,000 ml @ 400 mls/hr Q2H30M PRN IV PATENCY; Start 04/17/21 at 07:15; Stop 04/17/21 at 19:14; Status DC Info (PHARMACY MONITORING -- do not chart) 1 each PRN DAILY PRN MC SEE COMMENTS; Start 04/17/21 at 07:15; Stop 04/19/21 at 14:32; Status DC Magnesium Sulfate 50 ml @ 25 mls/hr 1X ONCE IV Last administered on 04/18/21at 14:39; Start 04/18/21 at 14:30; Stop 04/18/21 at 16:29; Status DC Sodium Chloride 1,000 ml @ 1,000 mls/hr Q1H PRN IV hypotension; Start 04/19/21 at 08:45; Stop 04/19/21 at 14:44; Status DC Sodium Chloride 1,000 ml @ 400 mls/hr Q2H30M PRN IV PATENCY; Start 04/19/21 at 08:45; Stop 04/19/21 at 20:44; Status DC Info (PHARMACY MONITORING -- do not chart) 1 each PRN DAILY PRN MC SEE COMMENTS; Start 04/19/21 at 08:45 Sodium Chloride 1,000 ml @ 1,000 mls/hr Q1H PRN IV hypotension; Start 04/20/21 at 11:15; Stop 04/20/21 at 17:14; Status DC Sodium Chloride 1,000 ml @ 400 mls/hr Q2H30M PRN IV PATENCY; Start 04/20/21 at 11:15; Stop 04/20/21 at 23:14; Status DC Info (PHARMACY MONITORING -- do not chart) 1 each PRN DAILY PRN MC SEE COMMENTS; Start 04/20/21 at 11:15; Stop 04/21/21 at 10:50; Status DC Lidocaine/ Epinephrine (LIDOCAINE 1%-EPI 1:100,000 Multi-Dose) 20 ml STK-MED ONCE .ROUTE ; Start 04/21/21 at 08:31; Stop 04/21/21 at 08:32; Status DC Midazolam HCl (Versed) 2 mg STK-MED ONCE .ROUTE ; Start 04/21/21 at 09:24; Stop 04/21/21 at 09:24; Status DC Fentanyl Citrate (Fentanyl 2ml Vial) 100 mcg STK-MED ONCE .ROUTE ; Start 04/21/21 at 09:24; Stop 04/21/21 at 09:25; Status DC Cefazolin Sodium/ Dextrose 50 ml @ As Directed STK-MED ONCE IV ; Start 04/21/21 at 09:24; Stop 04/21/21 at 09:25; Status DC Midazolam HCl (Versed) 1 mg 1X ONCE IV Last administered on 04/21/21at 09:53; Start 04/21/21 at 09:45; Stop 04/21/21 at 09:48; Status DC Fentanyl Citrate (Fentanyl 2ml Vial) 50 mcg 1X ONCE IV Last administered on 04/21/21at 09:53; Start 04/21/21 at 09:45; Stop 04/21/21 at 09:48; Status DC Lidocaine/ Epinephrine (LIDOCAINE 1%-EPI 1:100,000 Multi-Dose) 14 ml 1X ONCE INJ Last administered on 04/21/21at 09:53; Start 04/21/21 at 09:45; Stop 04/21/21 at 09:48; Status DC Cefazolin Sodium/ Dextrose 50 ml @ 100 mls/hr 1X ONCE IV Last administered on 04/21/21at 09:54; Start 04/21/21 at 09:45; Stop 04/21/21 at 10:14; Status DC Active Scripts Active Genie-Seda Tablet (Folic Acid/Vitamin B Comp W-C) 0.8 Mg Tablet 1 Tab PO DAILY 30 Days Renvela (Sevelamer Carbonate) 800 Mg Tablet 800 Mg PO TIDWMEALS 30 Days Amlodipine Besylate 5 Mg Tablet 5 Mg PO DAILY 30 Days Metoprolol Tartrate 50 Mg Tablet 50 Mg PO BID 30 Days Flomax (Tamsulosin Hcl) 0.4 Mg Cap.er.24h 0.4 Mg PO DAILY 30 Days Cyclobenzaprine Hcl 10 Mg Tablet 1 Tab PO TID Allergies Allergies: Coded Allergies: No Known Allergies (Verified Allergy, Unknown, 07/07/15) ROS Review of System Negative for fever, chills, weight loss, shortness of breath, chest pain, indigestion, hematochezia, melena, and dysuria. Full 14-point review of systems is negative. Physical Exam Physical Examination General: Well-developed, well-nourished, black male, in no acute distress. He has a Covarrubias catheter in HEENT: Normocephalic andatraumatic. Temporal arteriespulsatile and nontender. Neck: Supple without bruit, no meningismus Musculoskeletal: Stability:see neurologic. Gait exam:see neurologic. Tone:see neurologic.Strength:see neurologic. Neurological: Mental Status:intact, orientation, memory, attention span/concentration, language, fund of knowledge normal. Speech is fluent, he is not stuttering for me at all, he can name and repeat well. Cranial Nerves:Pupils equal and reactive to light, extraocular movements areintact, visual alexander are full to confrontation. Facial sensation is normal. There is no facial asymmetry. Vestibulo-ocular reflex is intact. Palate elevates and tongue protrudes in midline. All other cranial related problems are negative except as mentioned before.Reflexes:1+ and symmetric with flexor plantar responses. Motor:5/5 strength with normal tone and bulk. Coordination:Finger-nose finger and [id number]-[id number] testing are normal. Rapid alternating movements and fine finger movements are intact. Gait:Not tested. Sensory:Normal pinprick, vibration, light touch, proprioception. Vitals VITALS Vital Signs Date Time Temp Pulse Resp B/P (MAP) Pulse Ox O2 Delivery O2 Flow Rate FiO2 04/21/21 15:09 Room Air 04/21/21 13:31 96 2.0 04/21/21 12:57 93 126/66 04/21/21 11:08 98.7 18 98.7 Labs Labs Laboratory Tests Test 04/20/21 10:36 04/21/21 05:30 04/21/21 13:15 Prothrombin Time 14.2 SEC (11.7-14.0) Prothromb Time International Ratio 1.1 (0.8-1.1) Sodium Level 140 mmol/L (136-145) Potassium Level 4.1 mmol/L (3.5-5.1) Chloride Level 105 mmol/L (98-107) Carbon Dioxide Level 28 mmol/L (21-32) Anion Gap 7 (6-14) Blood Urea Nitrogen 21 mg/dL (8-26) Creatinine 5.0 mg/dL (0.7-1.3) Estimated GFR (Cockcroft-Gault) 14.3 Glucose Level 78 mg/dL (70-99) Calcium Level 6.4 mg/dL (8.5-10.1) Magnesium Level 1.7 mg/dL (1.8-2.4) Prostate Specific Antigen 3.62 ng/mL (0.00-4.00) Laboratory Tests Test 04/21/21 05:30 04/21/21 13:15 Sodium Level 140 mmol/L (136-145) Potassium Level 4.1 mmol/L (3.5-5.1) Chloride Level 105 mmol/L (98-107) Carbon Dioxide Level 28 mmol/L (21-32) Anion Gap 7 (6-14) Blood Urea Nitrogen 21 mg/dL (8-26) Creatinine 5.0 mg/dL (0.7-1.3) Estimated GFR (Cockcroft-Gault) 14.3 Glucose Level 78 mg/dL (70-99) Calcium Level 6.4 mg/dL (8.5-10.1) Magnesium Level 1.7 mg/dL (1.8-2.4) Prostate Specific Antigen 3.62 ng/mL (0.00-4.00) Images Images Echocardiogram, 04/20: LEFT VENTRICLE The left ventricle is normal size. There is mild concentric left ventricular hypertrophy. The left ventricular systolic function is normal. The Ejection Fraction is 55-60%. There is normal LV segmental wall motion. Transmitral Doppler flow pattern is Grade I-abnormal relaxation pattern. RIGHT VENTRICLE The right ventricle is normal size. There is normal right ventricular wall thickness. The right ventricular systolic function is normal. ATRIA The left atrium size is normal. The right atrium is borderline dilated. The interatrial septum is intact with no evidence for an atrial septal defect or patent foramen ovale as noted on 2-D or Doppler imaging. AORTIC VALVE The aortic valve is normal in structure and function. Doppler and Color Flow revealed no significant aortic regurgitation. Calculated aortic valve area is 3.40 cm2 with maximum pressure gradient of 13 mmHg and mean pressure gradient of 7 mmHg. MITRAL VALVE The mitral valve is normal in structure and function. There is no evidence of mitral valve prolapse. There is no mitral valve stenosis. Doppler and Color-flow revealed trace mitral regurgitation. TRICUSPID VALVE The tricuspid valve is normal in structure and function. Doppler and Color Flow revealed trace tricuspid regurgitation with an estimated PAP of 37 mmHg. There is no tricuspid valve stenosis. PULMONIC VALVE The pulmonary valve is normal in structure and function. Doppler and Color Flow revealed trace to mild pulmonic valvular regurgitation. GREAT VESSELS The aortic root is normal in size. The IVC is normal in size and collapses >50% with inspiration. PERICARDIAL EFFUSION There is no evidence of significant pericardial effusion. Critical Notification Critical Value: No <Conclusion> The left ventricular systolic function is normal. The Ejection Fraction is 55-60%. There is normal LV segmental wall motion. Trace mitral regurgitation. Trace tricuspid regurgitation with an estimated PAP of 37 mmHg. There is no evidence of significant pericardial effusion. CT head, 04/14: No intracranial hemorrhage. No significant midline shift. Ventricles and sulci are globally prominent. Scattered foci of low attenuation within the white matter. IMPRESSION: * No acute intracranial hemorrhage. * Scattered regions of low attenuation within the white matter. Non-specific in nature but a common finding and frequently secondary to small vessel ischemic disease. * Mucosal thickening of maxillary sinuses. Assessment/Plan Assessment/Plan Impression: Acute onset of speech problems worrisome for stroke, but symptoms have rapidly resolved and there are no other findings on exam. Stuttering could also be due to metabolic issues including fluctuations from his new dialysis, hypertension, or nonorganic issues such as stress or anxiety. Recommendations: I considered a stat head CT which was already ordered, but I think it would be better to just wait until tomorrow and obtain a brain MRI. He is not a candidate for alteplase. I doubt that he has had a cerebral hemorrhage tonight. He did have a negative head CT when he was even more confused, a week ago. Note that he is already had a echocardiogram Check carotid Doppler studies Start aspirin low-dose He is already receiving rehab, I will add on some speech therapy to check his swallowing and communications Delay discharge until tomorrow. Offered reassurance to the patient and his Fully discussed with patient and his Thank you for letting me help with the patient's care. ROBERTO GREENWOOD MD Apr 21, 2021 16:35
[2021-04-21] MEDS: ASPIRIN CHEWABLE 81 MG TABLET. PO SCH (17:34)
[2021-04-21 19:00] VITALS: BP 112/58
[2021-04-21 23:00] VITALS: BP 112/68
[2021-04-22 02:17] VITALS: BP 132/83
[2021-04-22 05:41] LABS: CALCIUM 6.1 mg/dL (8.5-10.1); CREATININE 6.7 mg/dL (0.7-1.3); GFR 10.2; POTASSIUM 4.3 mmol/L (3.5-5.1)
[2021-04-22] MEDS: IV NORMAL SALINE 1000ML BAG 1,000 ML IV SCH ×2 (05:45→15:45)
[2021-04-22 06:44] VITALS: BP 132/82
[2021-04-22] MEDS: METOPROLOL TART IMMED RELEASE 50 MG TABLET. PO SCH (10:00)
[2021-04-22] MEDS: SEVELAMER CARBONATE 800 MG TABLET. PO SCH ×3 (10:00→17:00)
[2021-04-22] MEDS: ASPIRIN CHEWABLE 81 MG TABLET. PO SCH (10:00)
[2021-04-22] MEDS: FOLIC/VIT B COMP W-C (RENAL) TABLET. PO SCH (10:00)
[2021-04-22] MEDS: TAMSULOSIN 0.4 MG CAP.ER.24H. PO SCH (10:00)
[2021-04-22 10:01] VITALS: BP 132/82
--- NOTE | 2021-04-22 10:40 | PDOC ---
DATE OF SERVICE DATE: 04/22/21 TIME: 10:40 SUBJECTIVE ROS Stable No complaints during dialysis OBJECTIVE Vital Signs Vital Signs Date Time Temp Pulse Resp B/P (MAP) Pulse Ox O2 Delivery O2 Flow Rate FiO2 04/22/21 10:01 79 132/82 04/22/21 06:44 98.6 16 99 Room Air 98.6 04/21/21 13:31 2.0 I & 0 Intake and Output 04/22/21 07:00 Intake Total 560 ml Output Total 2400 ml Balance -1840 ml Intake Oral 560 ml Output Urine Total 2400 ml PHYSICAL EXAM Physical Exam General Appearance: no apparent distress Skin: warm Respiratory: bilateral CTA Heart: S1S2 Abdomen: soft, bowel sounds present Genitourinary: prescott + Extremities: pulses present, no edema, Neurology: alert, oriented, follow commands DIAGNOSIS/ASSESSMENT Assessment & Plan CARLINE - ATN , requiring dialysis , initiated last week . Dialyzed yesterday. O-P chair time at [facility] .Seen during tretament, tolerating well. Continue as ordered. Lito MEJIA Supportive care, monitor . Access Tunneled HDC placed on 04/21/21 Obstructive uropathy Severe Bilat Hydronephrosis - Prescott in place . Urology Hyperkalemia Anemia - Tsats at goal . Will Not starte TAYLA 2/2 Bladder mass. Defer to oncology HypoMg- No labs this morning HypoCa - check Albumin Hypo Phos- poa - monitor Bladder MAss HTN Un controlled - BP's low today COMMENT/RELEVANT DATA Meds Current Medications Medications (Trade) Dose Ordered Sig/Laura Start Time Stop Time Status Last Admin Dose Admin Albumin Human 200 ml @ 200 mls/hr 1X PRN PRN 04/16/21 09:15 04/16/21 15:14 DC Amlodipine Besylate (Norvasc) 5 mg DAILY 04/14/21 18:00 04/22/21 10:01 5 MG Aspirin (Aspirin Chewable) 81 mg [id number] 04/21/21 17:00 04/22/21 10:00 81 MG Calcium Gluconate (Calcium Gluconate) 1,000 mg 1X ONCE 04/14/21 04:00 04/14/21 04:01 DC 04/14/21 03:57 1,000 MG Cefazolin Sodium/ Dextrose 50 ml @ 100 mls/hr 1X ONCE 04/21/21 09:45 04/21/21 10:14 DC 04/21/21 09:54 100 MLS/HR Clonidine HCl (Catapres) 0.2 mg 1X ONCE 04/14/21 09:45 04/14/21 09:46 DC 04/14/21 10:00 0.2 MG Digoxin (Lanoxin) 500 mcg 1X ONCE 04/15/21 16:45 04/15/21 16:46 DC 04/15/21 17:14 500 MCG Diphenhydramine HCl (Benadryl) 25 mg 1X PRN PRN 04/15/21 11:30 04/16/21 11:29 DC Fentanyl Citrate (Fentanyl 2ml Vial) 50 mcg 1X ONCE 04/21/21 09:45 04/21/21 09:48 DC 04/21/21 09:53 50 MCG Info (PHARMACY MONITORING -- do not chart) 1 each PRN DAILY PRN 04/20/21 11:15 04/21/21 10:50 DC Iron Sucrose 500 mg/Sodium Chloride 275 ml @ 78.571 mls/ hr 1X ONCE 04/15/21 12:00 04/15/21 15:29 DC 04/15/21 20:14 78.571 MLS/HR Lidocaine HCl (Buffered Lidocaine 1%) 3 ml 1X ONCE 04/15/21 10:45 04/15/21 10:46 DC 04/15/21 11:04 3 ML Lidocaine/ Epinephrine (LIDOCAINE 1%-EPI 1:100,000 Multi-Dose) 14 ml 1X ONCE 04/21/21 09:45 04/21/21 09:48 DC 04/21/21 09:53 15 ML Magnesium Sulfate 50 ml @ 25 mls/hr 1X ONCE 04/18/21 14:30 04/18/21 16:29 DC 04/18/21 14:39 25 MLS/HR Metoprolol Tartrate (Lopressor Vial) 5 mg 1X ONCE 04/15/21 15:00 04/15/21 15:01 DC 04/15/21 15:05 5 MG Metoprolol Tartrate (Lopressor) 50 mg BID 04/15/21 21:00 04/22/21 10:00 50 MG Midazolam HCl (Versed) 1 mg 1X ONCE 04/21/21 09:45 04/21/21 09:48 DC 04/21/21 09:53 1 MG Ondansetron HCl (Zofran) 4 mg PRN Q6HRS PRN 04/15/21 15:15 04/15/21 15:20 4 MG Sevelamer Carbonate (Renvela) 800 mg TIDWMEALS 04/15/21 12:00 04/22/21 10:00 800 MG Sodium Chloride 1,000 ml @ 400 mls/hr Q2H30M PRN 04/20/21 11:15 04/20/21 23:14 DC Sodium Chloride (Normal Saline Flush) 10 ml 1X PRN PRN 04/16/21 09:15 04/17/21 09:14 DC Tamsulosin HCl (Flomax) 0.4 mg DAILY 04/14/21 18:00 04/22/21 10:00 0.4 MG Vitamin B Complex/ Vitamin C (Genie-Seda) 1 tab DAILY 04/15/21 12:00 04/22/21 10:00 1 TAB Lab Laboratory Tests Test 04/21/21 13:15 04/22/21 04:15 Prostate Specific Antigen 3.62 ng/mL (0.00-4.00) Sodium Level 143 mmol/L (136-145) Potassium Level 4.3 mmol/L (3.5-5.1) Chloride Level 106 mmol/L (98-107) Carbon Dioxide Level 25 mmol/L (21-32) Anion Gap 12 (6-14) Blood Urea Nitrogen 34 mg/dL (8-26) Creatinine 6.7 mg/dL (0.7-1.3) Estimated GFR (Cockcroft-Gault) 10.2 Glucose Level 80 mg/dL (70-99) Calcium Level 6.1 mg/dL (8.5-10.1) Magnesium Level 1.7 mg/dL (1.8-2.4) Results All relevant outside records, renal labs, imaging studies, telemetry/EKG's were reviewed. Justicifation of Admission Dx: Justifications for Admission: Justification of Admission Dx: Yes JIN NEGRON MD Apr 22, 2021 10:40
[2021-04-22] MEDS ORDERED: IV NORMAL SALINE 1000ML BAG 1,000 ML IV PRN ×2 (11:30)
[2021-04-22] MEDS ORDERED: DIALYSIS PATIENT. MC PRN ×2 (11:30)
--- NOTE | 2021-04-22 11:48 | PDOC ---
CARDIO Progress Notes Date and Time Date of Service 04/22/21 Time of Evaluation 1145 Subjective Subjective: No Chest Pain, No shortness of breath, No Palpitations Vitals Vitals Vital Signs Date Time Temp Pulse Resp B/P (MAP) Pulse Ox O2 Delivery O2 Flow Rate FiO2 04/22/21 10:01 79 132/82 04/22/21 06:44 98.6 16 99 Room Air 98.6 04/21/21 13:31 2.0 Weight Weight [ ] Input and Output Intake and Output Intake and Output 04/22/21 07:00 Intake Total 560 ml Output Total 2400 ml Balance -1840 ml Intake Oral 560 ml Output Urine Total 2400 ml Laboratory Labs Laboratory Tests Test 04/21/21 13:15 04/22/21 04:15 Prostate Specific Antigen 3.62 ng/mL (0.00-4.00) Sodium Level 143 mmol/L (136-145) Potassium Level 4.3 mmol/L (3.5-5.1) Chloride Level 106 mmol/L (98-107) Carbon Dioxide Level 25 mmol/L (21-32) Anion Gap 12 (6-14) Blood Urea Nitrogen 34 mg/dL (8-26) Creatinine 6.7 mg/dL (0.7-1.3) Estimated GFR (Cockcroft-Gault) 10.2 Glucose Level 80 mg/dL (70-99) Calcium Level 6.1 mg/dL (8.5-10.1) Magnesium Level 1.7 mg/dL (1.8-2.4) Microbiology Micro Microbiology 04/14/21 Blood Culture - Final, Complete NO GROWTH AFTER 5 DAYS Review of Systems Constitutional: yes: weakness, alert, oriented Ears/Nose/Throat: Yes: no symptom reported Eyes: Yes: no symptom reported Pulmonary: Yes no symptom reported Gastrointestional: Yes: nausea Genitourinary: Yes: no symptom reported Musculoskeletal: Yes: no symptom reported Skin: Yes no symptom reported Psychiatric/Neurological: Yes: no symptom reported Endocrine: Yes: no symptom reported Hematologic/Lymphatic: Yes: no symptom reported Physical Exam HEENT: Neck Supple W Full Motion Chest: Symmetric LUNGS: Clear to Auscultation Heart: RRR Abdomen: Soft N/T Extremities: No Calf Tenderness Neurology: alert, oriented, follow commands Assessment Assessment 1. New onset AFIB with RVR , likely precipitated by metabolic issues and ane yahaira, presently back in SR 2. CARLINE, hyperkalemia; uremic. HD initiated 3. Obstructive uropathy, bilateral hydronephrosis 4. Bladder mass. concerns for bladder CA 5. Metabolic acidosis 6. Hypocalcemia 7. Anemia; post transfusion 8. Hypertension; controlled 9. Encephalopathy ;better 10. Hypomagnesemia 11. Hematuria; better 12. Fevers 13. Dysarthria; MRI today Recommendations Replace Mg Continue metoprolol for rate control TTE and event monitor as an outpatient as arranged No ASA/OAC with anemia at this time. ECASA 81 mg upon discharge Follow renal recs Supportive care Follow up with filament tester, Dr. Gordillo as scheduled Justicifation of Admission Dx: Justifications for Admission: Justification of Admission Dx: Yes DHIRAJ ROBERTSON APRN Apr 22, 2021 11:48
[2021-04-22] MEDS ORDERED: MAGNESIUM SULFATE 2GM 50 ML IV ONE (12:00)
--- NOTE | 2021-04-22 13:18 | PDOC ---
PROGRESS NOTES Date of Service DATE: 04/22/21 TIME: 13:16 Assessment Problems Medical Problems: (1) Bladder mass Status: Acute (2) Confusion Status: Acute (3) Hyperkalemia Status: Acute (4) Hyperphosphatemia Status: Acute (5) Hyperuricemia Status: Acute (6) Hypocalcemia Status: Acute (7) Obstructive nephropathy Status: Acute (8) Uremia Status: Acute Acute onset of speech problems worrisome for stroke, but symptoms have rapidly resolved and there are no other findings on exam. Stuttering could also be due to metabolic issues including fluctuations from his new dialysis, hypertension, or nonorganic issues such as stress or anxiety. He has had no recurrence. Plan Await MRI of the brain and carotid Doppler studies, currently he is in dialysis Low-dose aspirin Speech has not been able to see Okay for discharge later today Follow-up with neurology as needed Subjective He has had no further episodes of stuttering Objective Vital Signs Date Time Temp Pulse Resp B/P (MAP) Pulse Ox O2 Delivery O2 Flow Rate FiO2 04/22/21 10:01 79 132/82 04/22/21 08:00 Room Air 04/22/21 06:44 98.6 16 99 98.6 04/21/21 13:31 2.0 Intake and Output 04/22/21 07:00 Intake Total 560 ml Output Total 2400 ml Balance -1840 ml Intake Oral 560 ml Output Urine Total 2400 ml PHYSICAL EXAM Alert. Oriented to time, place and person. PERRL. EOMI. CN: no focal findings. Muscle tone: normal. Muscle strength: 5/5 DTR: 1+ Plantar reflex: Flexor Gait: not examined in bed. Sensory exam: no abnormal findings. No cerebellar signs elicited. Review of Relevant I have reviewed the following items kirstie (where applicable) has been applied. Labs Laboratory Tests Test 04/21/21 05:30 04/21/21 13:15 04/22/21 04:15 Sodium Level 140 mmol/L (136-145) 143 mmol/L (136-145) Potassium Level 4.1 mmol/L (3.5-5.1) 4.3 mmol/L (3.5-5.1) Chloride Level 105 mmol/L (98-107) 106 mmol/L (98-107) Carbon Dioxide Level 28 mmol/L (21-32) 25 mmol/L (21-32) Anion Gap 7 (6-14) 12 (6-14) Blood Urea Nitrogen 21 mg/dL (8-26) 34 mg/dL (8-26) Creatinine 5.0 mg/dL (0.7-1.3) 6.7 mg/dL (0.7-1.3) Estimated GFR (Cockcroft-Gault) 14.3 10.2 Glucose Level 78 mg/dL (70-99) 80 mg/dL (70-99) Calcium Level 6.4 mg/dL (8.5-10.1) 6.1 mg/dL (8.5-10.1) Magnesium Level 1.7 mg/dL (1.8-2.4) 1.7 mg/dL (1.8-2.4) Prostate Specific Antigen 3.62 ng/mL (0.00-4.00) Laboratory Tests Test 04/22/21 04:15 Sodium Level 143 mmol/L (136-145) Potassium Level 4.3 mmol/L (3.5-5.1) Chloride Level 106 mmol/L (98-107) Carbon Dioxide Level 25 mmol/L (21-32) Anion Gap 12 (6-14) Blood Urea Nitrogen 34 mg/dL (8-26) Creatinine 6.7 mg/dL (0.7-1.3) Estimated GFR (Cockcroft-Gault) 10.2 Glucose Level 80 mg/dL (70-99) Calcium Level 6.1 mg/dL (8.5-10.1) Magnesium Level 1.7 mg/dL (1.8-2.4) Microbiology 04/14/21 Blood Culture - Final, Complete NO GROWTH AFTER 5 DAYS Medications Current Medications Calcium Gluconate (Calcium Gluconate) 1,000 mg 1X ONCE IVP Last administered on 04/14/21at 03:57; Start 04/14/21 at 04:00; Stop 04/14/21 at 04:01; Status DC Clonidine HCl (Catapres) 0.2 mg 1X ONCE PO Last administered on 04/14/21at 10:00; Start 04/14/21 at 09:45; Stop 04/14/21 at 09:46; Status DC Metoprolol Tartrate (Lopressor) 25 mg BID PO Last administered on 04/15/21at 09:54; Start 04/14/21 at 14:00; Stop 04/15/21 at 16:08; Status DC Magnesium Sulfate 50 ml @ 25 mls/hr 1X ONCE IV Last administered on 04/14/21at 17:58; Start 04/14/21 at 17:15; Stop 04/14/21 at 19:14; Status DC Tamsulosin HCl (Flomax) 0.4 mg DAILY PO Last administered on 04/22/21at 10:00; Start 04/14/21 at 18:00 Amlodipine Besylate (Norvasc) 5 mg DAILY PO Last administered on 04/22/21at 10:01; Start 04/14/21 at 18:00 Sodium Chloride 1,000 ml @ 100 mls/hr Q10H IV Last administered on 04/20/21at 11:04; Start 04/14/21 at 17:45 Lidocaine HCl (Buffered Lidocaine 1%) 3 ml STK-MED ONCE .ROUTE ; Start 04/15/21 at 10:03; Stop 04/15/21 at 10:04; Status DC Lidocaine HCl (Buffered Lidocaine 1%) 3 ml 1X ONCE INJ Last administered on 04/15/21at 11:04; Start 04/15/21 at 10:45; Stop 04/15/21 at 10:46; Status DC Iron Sucrose 500 mg/Sodium Chloride 275 ml @ 78.571 mls/ hr 1X ONCE IV Last administered on 04/15/21at 20:14; Start 04/15/21 at 12:00; Stop 04/15/21 at 15:29; Status DC Sevelamer Carbonate (Renvela) 800 mg TIDWMEALS PO Last administered on 04/22/21at 10:00; Start 04/15/21 at 12:00 Vitamin B Complex/ Vitamin C (Genie-Seda) 1 tab DAILY PO Last administered on 04/22/21at 10:00; Start 04/15/21 at 12:00 Sodium Chloride 1,000 ml @ 1,000 mls/hr Q1H PRN IV hypotension; Start 04/15/21 at 11:30; Stop 04/15/21 at 17:29; Status DC Diphenhydramine HCl (Benadryl) 25 mg 1X PRN PRN IV ITCHING; Start 04/15/21 at 11:30; Stop 04/16/21 at 11:29; Status DC Diphenhydramine HCl (Benadryl) 25 mg 1X PRN PRN IV ITCHING; Start 04/15/21 at 11:30; Stop 04/16/21 at 11:29; Status DC Sodium Chloride 1,000 ml @ 400 mls/hr Q2H30M PRN IV PATENCY; Start 04/15/21 at 11:30; Stop 04/15/21 at 23:29; Status DC Info (PHARMACY MONITORING -- do not chart) 1 each PRN DAILY PRN MC SEE COMMENTS; Start 04/15/21 at 11:30; Status Cancel Metoprolol Tartrate (Lopressor Vial) 5 mg 1X ONCE IVP Last administered on 04/15/21at 15:05; Start 04/15/21 at 15:00; Stop 04/15/21 at 15:01; Status DC Ondansetron HCl (Zofran) 4 mg PRN Q6HRS PRN IVP NAUSEA/VOMITING Last administered on 04/15/21at 15:20; Start 04/15/21 at 15:15 Metoprolol Tartrate (Lopressor) 50 mg BID PO Last administered on 04/22/21at 10:00; Start 04/15/21 at 21:00 Digoxin (Lanoxin) 500 mcg 1X ONCE IV Last administered on 04/15/21at 17:14; Start 04/15/21 at 16:45; Stop 04/15/21 at 16:46; Status DC Sodium Chloride 1,000 ml @ 1,000 mls/hr Q1H PRN IV hypotension; Start 04/16/21 at 09:15; Stop 04/16/21 at 15:14; Status DC Albumin Human 200 ml @ 200 mls/hr 1X PRN PRN IV Hypotension; Start 04/16/21 at 09:15; Stop 04/16/21 at 15:14; Status DC Sodium Chloride (Normal Saline Flush) 10 ml 1X PRN PRN IV AP catheter pack; Start 04/16/21 at 09:15; Stop 04/17/21 at 09:14; Status DC Sodium Chloride (Normal Saline Flush) 10 ml 1X PRN PRN IV REHAB DEPARTMENT MANAGER catheter pack; Start 04/16/21 at 09:15; Stop 04/17/21 at 09:14; Status DC Sodium Chloride 1,000 ml @ 400 mls/hr Q2H30M PRN IV PATENCY; Start 04/16/21 at 09:15; Stop 04/16/21 at 21:14; Status DC Info (PHARMACY MONITORING -- do not chart) 1 each PRN DAILY PRN MC SEE COMMENTS; Start 04/16/21 at 09:15; Status UNV Info (PHARMACY MONITORING -- do not chart) 1 each PRN DAILY PRN MC SEE COMMENTS; Start 04/16/21 at 09:15; Status UNV Sodium Chloride 1,000 ml @ 1,000 mls/hr Q1H PRN IV hypotension; Start 04/17/21 at 07:15; Stop 04/17/21 at 13:14; Status DC Sodium Chloride 1,000 ml @ 400 mls/hr Q2H30M PRN IV PATENCY; Start 04/17/21 at 07:15; Stop 04/17/21 at 19:14; Status DC Info (PHARMACY MONITORING -- do not chart) 1 each PRN DAILY PRN MC SEE COMMENTS; Start 04/17/21 at 07:15; Stop 04/19/21 at 14:32; Status DC Magnesium Sulfate 50 ml @ 25 mls/hr 1X ONCE IV Last administered on 04/18/21at 14:39; Start 04/18/21 at 14:30; Stop 04/18/21 at 16:29; Status DC Sodium Chloride 1,000 ml @ 1,000 mls/hr Q1H PRN IV hypotension; Start 04/19/21 at 08:45; Stop 04/19/21 at 14:44; Status DC Sodium Chloride 1,000 ml @ 400 mls/hr Q2H30M PRN IV PATENCY; Start 04/19/21 at 08:45; Stop 04/19/21 at 20:44; Status DC Info (PHARMACY MONITORING -- do not chart) 1 each PRN DAILY PRN MC SEE COMMENTS; Start 04/19/21 at 08:45 Sodium Chloride 1,000 ml @ 1,000 mls/hr Q1H PRN IV hypotension; Start 04/20/21 at 11:15; Stop 04/20/21 at 17:14; Status DC Sodium Chloride 1,000 ml @ 400 mls/hr Q2H30M PRN IV PATENCY; Start 04/20/21 at 11:15; Stop 04/20/21 at 23:14; Status DC Info (PHARMACY MONITORING -- do not chart) 1 each PRN DAILY PRN MC SEE COMMENTS; Start 04/20/21 at 11:15; Stop 04/21/21 at 10:50; Status DC Lidocaine/ Epinephrine (LIDOCAINE 1%-EPI 1:100,000 Multi-Dose) 20 ml STK-MED ONCE .ROUTE ; Start 04/21/21 at 08:31; Stop 04/21/21 at 08:32; Status DC Midazolam HCl (Versed) 2 mg STK-MED ONCE .ROUTE ; Start 04/21/21 at 09:24; Stop 04/21/21 at 09:24; Status DC Fentanyl Citrate (Fentanyl 2ml Vial) 100 mcg STK-MED ONCE .ROUTE ; Start 04/21/21 at 09:24; Stop 04/21/21 at 09:25; Status DC Cefazolin Sodium/ Dextrose 50 ml @ As Directed STK-MED ONCE IV ; Start 04/21/21 at 09:24; Stop 04/21/21 at 09:25; Status DC Midazolam HCl (Versed) 1 mg 1X ONCE IV Last administered on 04/21/21at 09:53; Start 04/21/21 at 09:45; Stop 04/21/21 at 09:48; Status DC Fentanyl Citrate (Fentanyl 2ml Vial) 50 mcg 1X ONCE IV Last administered on 04/21/21at 09:53; Start 04/21/21 at 09:45; Stop 04/21/21 at 09:48; Status DC Lidocaine/ Epinephrine (LIDOCAINE 1%-EPI 1:100,000 Multi-Dose) 14 ml 1X ONCE INJ Last administered on 04/21/21at 09:53; Start 04/21/21 at 09:45; Stop 04/21/21 at 09:48; Status DC Cefazolin Sodium/ Dextrose 50 ml @ 100 mls/hr 1X ONCE IV Last administered on 04/21/21at 09:54; Start 04/21/21 at 09:45; Stop 04/21/21 at 10:14; Status DC Aspirin (Aspirin Chewable) 81 mg DAILYWBKFT PO Last administered on 04/22/21at 10:00; Start 04/21/21 at 17:00 Sodium Chloride 1,000 ml @ 1,000 mls/hr Q1H PRN IV hypotension; Start 04/22/21 at 11:30; Stop 04/22/21 at 17:29 Sodium Chloride 1,000 ml @ 400 mls/hr Q2H30M PRN IV PATENCY; Start 04/22/21 at 11:30; Stop 04/22/21 at 23:29 Info (PHARMACY MONITORING -- do not chart) 1 each PRN DAILY PRN MC SEE COMMENTS; Start 04/22/21 at 11:30; Status UNV Info (PHARMACY MONITORING -- do not chart) 1 each PRN DAILY PRN MC SEE COMMENTS; Start 04/22/21 at 11:30; Stop 04/22/21 at 11:20; Status DC Magnesium Sulfate 50 ml @ 25 mls/hr 1X ONCE IV ; Start 04/22/21 at 12:00; Stop 04/22/21 at 13:59 Active Scripts Active Genie-Seda Tablet (Folic Acid/Vitamin B Comp W-C) 0.8 Mg Tablet 1 Tab PO DAILY 30 Days Renvela (Sevelamer Carbonate) 800 Mg Tablet 800 Mg PO TIDWMEALS 30 Days Amlodipine Besylate 5 Mg Tablet 5 Mg PO DAILY 30 Days Metoprolol Tartrate 50 Mg Tablet 50 Mg PO BID 30 Days Flomax (Tamsulosin Hcl) 0.4 Mg Cap.er.24h 0.4 Mg PO DAILY 30 Days Cyclobenzaprine Hcl 10 Mg Tablet 1 Tab PO TID Vitals/I & O Vital Sign - Last 24 Hours 04/21/21 04/21/21 04/21/21 04/21/21 13:31 15:09 19:00 20:35 Temp 98.9 98.9 Pulse 90 Resp 18 B/P (MAP) 112/58 (76) Pulse Ox 96 100 O2 Delivery Room Air Room Air Room Air Room Air O2 Flow Rate 2.0 04/21/21 04/21/21 04/22/21 04/22/21 21:56 23:00 02:17 06:44 Temp 98.6 98.3 98.6 98.6 98.3 98.6 Pulse 90 86 72 79 Resp 18 18 16 B/P (MAP) 112/58 112/68 (83) 132/83 (99) 132/82 (99) Pulse Ox 97 98 99 O2 Delivery Room Air Room Air Room Air 04/22/21 04/22/21 04/22/21 08:00 10:00 10:01 Pulse 79 79 B/P (MAP) 132/82 132/82 O2 Delivery Room Air Intake and Output 04/21/21 04/21/21 04/22/21 15:00 23:00 07:00 Intake Total 120 ml 340 ml 100 ml Output Total 1200 ml 1200 ml Balance 120 ml -860 ml -1100 ml Justicifation of Admission Dx: Justifications for Admission: Justification of Admission Dx: Yes ROBERTO GREENWOOD MD Apr 22, 2021 13:18
--- NOTE | 2021-04-22 13:19 | NUR ---
SS following up with discharge planning. SS reviewed pt chart and discussed with pt RN. Pt is currently on room air. COVID19 negative. Cardiology and Nephrology following. Neurology consulted yesterday for neurological changes. Pt having Brain MRI and Carotid Doppler today. Pt has confirmed chair time for outpatient hemodialysis Monday, , and Monday at 1015 at [facility], ; fax [phone]. Pt first start date for dialysis now scheduled for 04/24/2021 at 1000. PT/OT recommended home. Discharge order on the chart for home with self care if MRI is negative. SS will continue to follow for discharge planning.
--- NOTE | 2021-04-22 15:11 | RAD ---
US DPLX CAROTID BILAT History: Reason: TIA, Confusion, Difficulty Speaking, HTN / Spl. Instructions: / History: COMPARISON: None Technique: Duplex sonography of the cervical portion of both carotid arteries was performed. Real-lisset e grayscale, color flow Doppler, and Doppler spectral waveform analysis is performed. PQRS Compliance Statement - Stenosis calculations for CT, MR and conventional angiography are based u aydee measurement of the distal ICA diameter in accordance with the NASCET methodology. Stenosis calcu lations for carotid ultrasound studies are derived from validated velocity criteria which are known t o correlate with the NASCET methodology. Findings: Right side: Peak systolic flow velocity of the CCA is 137 cm/sec. Peak systolic flow velocity of the ICA is 1:15 cm/sec. The ICA/CCA ratio is 0.84. Peak end diastolic flow velocity of the ICA is 44 cm/sec. The peak systolic velocity of the ECA is 134 cm/sec. Mild atheromatous plaque. Left side: Peak systolic flow velocity of the CCA is 139 cm/sec. Peak systolic flow velocity of the ICA is 133 cm/sec. The ICA/CCA ratio is 0.96. Peak end diastolic flow velocity of the ICA is 57 cm/sec. Peak systolic flow velocity of the ECA is 110 cm/sec. Mild atheromatous plaque. Vertebral arteries: Bilateral vertebral arteries demonstrate antegrade flow. IMPRESSION: 1. Mildly elevated velocity within the left proximal internal carotid artery, may indicate 50-69 per cent stenosis. 2. Mild bilateral atheromatous plaque. Electronically signed by: Yoav Garcia DO (04/22/2021 3:08 PM) [id number]
--- NOTE | 2021-04-22 16:53 | RAD ---
MRI BRAIN WO History: Speech changes, rule out stroke. Technique: Multiplanar, multi sequential MR imaging was performed of the brain without contrast. Comparison: CT head 04/14/2021 Findings: No acute infarct. No intracranial hemorrhage. No mass effect. No hydrocephalus. Extra-axial spaces a re unremarkable. Scattered foci of T2 FLAIR hyperintensity in the periventricular and deep white ryan er consistent with chronic microvascular ischemic changes. Imaged orbits are unremarkable. Bilateral maxillary sinus mucoperiosteal thickening. Impression: 1. No acute intracranial abnormality. 2. Mild scattered foci of T2 FLAIR hyperintensity most consistent with chronic microvascular ischemi c changes. 3. Right greater than left maxillary sinus mucoperiosteal thickening. Electronically signed by: Dennis Portillo MD (04/22/2021 4:50 PM) [facility]
[2021-04-22] MEDS ORDERED: ASPI-630 PO (17:41)
--- NOTE | 2021-04-22 18:11 | NUR ---
Discharge Note: GORDON PASTOR Discharge instructions and discharge home medications reviewed with Patient and a copy given. All questions have been answered and understanding verbalized. All follow up appointments and new scripts reviewed with patient and family memember. Pt discharged in stable condition via wheelchair.
== END 2021-04-22 18:17 | disposition home or self-care (01) | DRG 673 ==
LOC: ER 03:09 → ED HOLD 05:10 → 6 SOUTH 09:01
PROVIDERS: ADMIT Internal Medicine; ATTEND Internal Medicine
PROC: 30233N1 Transfusion of Nonautologous Red Blood Cells into Peripheral Vein, Percutaneous Approach (ICD-10-PCS; principal; 2021-04-15)
PROC: 5A1D70Z Performance of Urinary Filtration, Intermittent, Less than 6 Hours Per Day (ICD-10-PCS; 2021-04-15)
PROC: 05HM33Z Insertion of Infusion Device into Right Internal Jugular Vein, Percutaneous Approach (ICD-10-PCS; 2021-04-15)
PROC: B5131ZA Fluoroscopy of Right Jugular Veins using Low Osmolar Contrast, Guidance (ICD-10-PCS; 2021-04-15)
PROC: B543ZZA Ultrasonography of Right Jugular Veins, Guidance (ICD-10-PCS; 2021-04-15)
PROC: 5A1D70Z Performance of Urinary Filtration, Intermittent, Less than 6 Hours Per Day (ICD-10-PCS; 2021-04-16)
PROC: 5A1D70Z Performance of Urinary Filtration, Intermittent, Less than 6 Hours Per Day (ICD-10-PCS; 2021-04-19)
PROC: 5A1D70Z Performance of Urinary Filtration, Intermittent, Less than 6 Hours Per Day (ICD-10-PCS; 2021-04-20)
PROC: 0JH63XZ Insertion of Tunneled Vascular Access Device into Chest Subcutaneous Tissue and Fascia, Percutaneous Approach (ICD-10-PCS; 2021-04-21)
PROC: 02H633Z Insertion of Infusion Device into Right Atrium, Percutaneous Approach (ICD-10-PCS; 2021-04-21)
PROC: B5181ZA Fluoroscopy of Superior Vena Cava using Low Osmolar Contrast, Guidance (ICD-10-PCS; 2021-04-21)
PROC: 5A1D70Z Performance of Urinary Filtration, Intermittent, Less than 6 Hours Per Day (ICD-10-PCS; 2021-04-22)
PROC: 5A1D70Z Performance of Urinary Filtration, Intermittent, Less than 6 Hours Per Day (ICD-10-PCS; 2021-04-22)
DX: N17.0 Acute kidney failure with tubular necrosis (principal); G93.41 Metabolic encephalopathy; I48.92 Unspecified atrial flutter; E87.2 Acidosis; N13.8 Other obstructive and reflux uropathy; M62.82 Rhabdomyolysis; I12.0 Hypertensive chronic kidney disease with stage 5 chronic kidney disease or end stage renal disease; N18.6 End stage renal disease; N13.30 Unspecified hydronephrosis; I48.91 Unspecified atrial fibrillation; D50.0 Iron deficiency anemia secondary to blood loss (chronic); D63.1 Anemia in chronic kidney disease; E83.39 Other disorders of phosphorus metabolism; E83.42 Hypomagnesemia; E83.51 Hypocalcemia; E87.5 Hyperkalemia; F12.90 Cannabis use, unspecified, uncomplicated; F41.9 Anxiety disorder, unspecified; G89.29 Other chronic pain; N32.0 Bladder-neck obstruction; N40.0 Benign prostatic hyperplasia without lower urinary tract symptoms; X58.XXXA Exposure to other specified factors, initial encounter; Y92.69 Other specified industrial and construction area as the place of occurrence of the external cause; Z20.822 Contact with and (suspected) exposure to COVID-19; Z80.42 Family history of malignant neoplasm of prostate; Z82.3 Family history of stroke; Z83.3 Family history of diabetes mellitus; Z86.73 Personal history of transient ischemic attack (TIA), and cerebral infarction without residual deficits; Z91.19 Patient's noncompliance with other medical treatment and regimen; Z99.2 Dependence on renal dialysis
CPT/HCPCS: 36415; 36430; 36556; 36558; 36581; 51702; 70450; 70551; 71045; 74176; 76770; 76937; 77001; 80048; 80053; 80061; 81001; 82550; 82962; 83540; 83550; 83605; 83735; 84100; 84443; 84550; 85025; 85027; 85610; 86317; 86704; 86850; 86900; 86901; 86920; 87040; 87340; 87426; 93005; 93306; 93880; 96374; 99152; 99153; C1750; C1892; G0103; J0610; J0690; J1160; J1756; J2250; J2405; J3010; J3475; J3490; J7030; J7050; P9016; U0003; U0005; 92610-GN; 97116-GP; 97530-GO; 97535-GO; 99285-25; G0378

== ENCOUNTER → 2021-04-28 | Outpatient (CLI) | payer MEDICAID ==
[2021-04-22 10:01] VITALS: BP 132/82
[~2021-04-28] MED LIST changes: +AMLO-186 PO; +ASPI-630 PO; +FOLI0.8T21 PO; +METO50TA6 PO; +SEVE800T9 PO; +TAMS0.4C97 PO
[2021-04-28 14:08] LABS: BASO % 1 % (0-3); EOS # 0.8 x10^3/uL (0.0-0.7); EOS % 10 % (0-3); LYMPH # 0.8 x10^3/uL (1.0-4.8); LYMPH % 11 % (24-48); MEAN CORPUSCULAR HEMOGLOBIN 32 pg (25-35); MEAN CORPUSCULAR HGB CONC 33 g/dL (31-37); MEAN CORPUSCULAR VOLUME 97 fL (79-100); MONO # 1.4 x10^3/uL (0.0-1.1); MONO % 18 % (0-9); NEUT # 4.4 x10^3/uL (1.8-7.7); NEUT % 59 % (31-73); PLATELET COUNT 238 x10^3/uL (140-400); RED BLOOD COUNT 2.15 x10^6/uL (4.30-5.70); RED CELL DISTRIBUTION WIDTH 12.7 % (11.5-14.5); WHITE BLOOD COUNT 7.4 x10^3/uL (4.0-11.0)
[2021-04-28 14:12] LABS: HEMATOCRIT 20.9 % (39.0-53.0); HEMOGLOBIN 6.9 g/dL (13.0-17.5)
[2021-04-28 14:29] LABS: ALBUMIN 2.9 g/dL (3.4-5.0); ALBUMIN/GLOBULIN RATIO 0.7 (1.0-1.7); CALCIUM 7.2 mg/dL (8.5-10.1); CREATININE 6.1 mg/dL (0.7-1.3); GFR 11.4; POTASSIUM 4.6 mmol/L (3.5-5.1); TOTAL BILIRUBIN 0.2 mg/dL (0.2-1.0); TOTAL PROTEIN 7.2 g/dL (6.4-8.2)
== END ==
LOC: ONCLAB 13:49
PROVIDERS: ATTEND Internal Medicine Hematology & Oncology
DX: C67.8 Malignant neoplasm of overlapping sites of bladder (principal)
CPT/HCPCS: 36415; 80053; 85025

== ENCOUNTER → 2021-05-17 | Outpatient (CLI) | payer MEDICAID ==
[2021-04-19 15:24] VITALS: BP_DIAS 76
[2021-04-29 10:05] VITALS: BP_SYST 108
--- NOTE | 2021-05-17 13:08 | RAD ---
EXAM: Chest CT without intravenous contrast. HISTORY: Bladder mass. Atrial fibrillation. TECHNIQUE: Computed tomographic images of the chest were obtained without contrast. Multiplanar refor matting was performed. *One or more of the following individualized dose reduction techniques were utilized for this examina tion: 1. Automated exposure control. 2. Adjustment of the mA and/or kV according to patient size. 3. Use of iterative reconstruction technique. COMPARISON: Abdomen and pelvis CT dated 04/15/2021. FINDINGS: The heart is mildly enlarged. There is a right internal jugular catheter with the tip at th e superior cavoatrial junction. The aorta is normal in caliber. No pathologically enlarged mediastina l or hilar lymph node is seen on this noncontrast exam. There is a right infrahilar calcified granulo ma. There is no pneumothorax or pleural effusion. There is a 3 mm nodule along the right minor pleural fissure, likely a fissural lymph node. There is minimal posterior dependent atelectasis. There is a tiny suspected cyst within the right hepatic lobe . There is additional ill-defined hypodense lesion within the inferior tip of the right hepatic lobe measuring 1.4 cm. This is difficult to characterize in the absence of contrast. The spleen is normal in size. The pancreas, stomach and adrenal glands are unremarkable. There is sev ere bilateral hydronephrosis. There is bilateral renal cortical thinning. There is no acute or suspic ious osseous finding. IMPRESSION: 1. No acute thoracic finding. 2. 3 mm pulmonary nodule along the right minor fissure, likely due to a benign fissural lymph node. 3. 1.4 cm indeterminate hypodense lesion within the inferior right hepatic lobe. Is not visible sonog raphically, a liver protocol CT or MRI may be indicated for characterization, given history of a blad teja mass. 4. Severe hydronephrosis and associated renal cortical thinning. This is better characterized on the abdomen and pelvis CT performed 04/15/2021. Electronically signed by: Leila Olivia MD (05/17/2021 1:06 PM) [id number]
--- NOTE | 2021-05-17 15:01 | CARD ---
MR#: [id number] Date of Study: 05/17/2021 Ordering Physician: ARCELIA ELIZABETH, Referring Physician: ARCELIA ELIZABETH, Tech: Padmini Mckeon [facility] APPROVED REPORT EXAM: Two-dimensional and M-mode echocardiogram with Doppler and color Doppler. Other Information Quality : GoodHR: 60bpm Rhythm : NSR INDICATION Dyspnea RISK FACTORS Hypertension 2D DIMENSIONS RVDd3.8 (2.9-3.5cm)Left Atrium(2D)4.7 (1.6-4.0cm) IVSd1.3 (0.7-1.1cm)Aortic Root(2D)3.8 (2.0-3.7cm) LVDd5.6 (3.9-5.9cm)PWd1.2 (0.7-1.1cm) LVDs2.8 (2.5-4.0cm)FS (%) 50.1 % SV122.6 mlLVEF(%)80.9 (>50%) Aortic Valve AoV Peak Sean.167.2cm/sAoV VTI34.3cm AO Peak GR.11.2mmHgLVOT Peak Sean.99.6cm/s AO Mean GR.5mmHg Pulmonary Valve PV Peak Ghivxsbm022.5cm/s Tricuspid Valve TR P. [id number]/sTR Peak Gr.21mmHg LEFT VENTRICLE The left ventricle is normal size. There is mild concentric left ventricular hypertrophy. The left ve ntricular systolic function is normal. Estimated ejection fraction 65%. There is normal LV segmental wall motion. The left ventricular diastolic function and filling is normal for age. RIGHT VENTRICLE The right ventricle is normal size. The right ventricle is mildly hypertrophied. The right ventricula r systolic function is normal. ATRIA The left atrium size is normal. The right atrium is mildly dilated. The interatrial septum is intact with no evidence for an atrial septal defect or patent foramen ovale as noted on 2-D or Doppler imagi ng. AORTIC VALVE The aortic valve is normal in structure and function. Doppler and Color Flow revealed no significant aortic regurgitation. There is no significant aortic valvular stenosis. Cannot exclude aortic valvula r vegetation. MITRAL VALVE The mitral valve is normal in structure and function. There is no evidence of mitral valve prolapse. There is no mitral valve stenosis. Doppler and Color-flow revealed mild mitral regurgitation. TRICUSPID VALVE The tricuspid valve is normal in structure and function. Doppler and Color Flow revealed mild tricusp id regurgitation. Estimated PAP 25 mmHg. There is no tricuspid valve stenosis. PULMONIC VALVE The pulmonary valve is normal in structure and function. Doppler and Color Flow revealed mild pulmoni c valvular regurgitation. GREAT VESSELS The aortic root is mildly enlarged. The ascending aorta is Mildly dilated. The IVC is normal in size and collapses >50% with inspiration. PERICARDIAL EFFUSION There is no evidence of significant pericardial effusion. Critical Notification Critical Value: No <Conclusion> The left ventricular systolic function is normal. Estimated ejection fraction 65%. There is normal LV segmental wall motion. Mild mitral regurgitation. Mild tricuspid regurgitation. Estimated PAP 25 mmHg. There is no evidence of significant pericardial effusion. Signed by : Rodolfo Jordan, Electronically Approved : 05/17/2021 15:01:16
== END ==
LOC: CT 12:22
PROVIDERS: ATTEND Internal Medicine Cardiovascular Disease
DX: C67.8 Malignant neoplasm of overlapping sites of bladder (principal); I08.8 Other rheumatic multiple valve diseases; R91.1 Solitary pulmonary nodule; J84.10 Pulmonary fibrosis, unspecified; J98.11 Atelectasis; I48.0 Paroxysmal atrial fibrillation; N13.30 Unspecified hydronephrosis
CPT/HCPCS: 71250; 93306

== ENCOUNTER → 2021-07-07 | Outpatient (CLI) | payer MEDICAID ==
[2021-04-29 10:05] VITALS: BP 108/76
--- NOTE | 2021-07-07 13:20 | KCIC ---
MRI lumbar spine without contrast HISTORY: Bone lesion. History of L5 vertebral body lesion probable Schmorl's node. COMPARISON: CT abdomen and pelvis April 15, 2021 FINDINGS: There is mild levoconvex lumbar scoliosis as on prior CT imaging. Lumbar vertebral body hei ght and alignment intact. At the upper L5 vertebral body underlying the central portion of the superi or endplate there is a 1 cm lesion of the trabecular bone with central signal hypointensity and surro unding rim of vasogenic edema with an overlying tiny endplate cortical defect containing a herniation of the intervertebral disc, imaging features typical of a Schmorl's node from degenerative disc dise ase at L4-L5 and represents the lesion in question on recent CT imaging. There is no suspicious bony lesion evident. Conus terminates at the lower L1 lumbar vertebral level. Cauda equina is normal. Mer re bilateral renal hydronephrosis and renal atrophy and dilation of ureters leading towards the pelvi s towards the bladder extending outside the [id number], the visualized upper segment of the bladde r demonstrates abnormal wall thickening, these findings were present on prior CT imaging. Lumbar para spinal tissues are normal. There is deep pelvic and presacral soft tissue edema noted. Lumbar disc di sease is described below. L1-L2: No sizable disc bulge or herniation. No spinal canal or neural foraminal stenosis. L2-L3: Disc desiccation. Mild disc height loss. Moderate posterior and lateral disc bulge mildly defo jenifer the ventral dural sac. Very mild narrowing of the right lateral recess without nerve root impinge ment. Mild right neural foraminal stenosis. Left neural foramen patent. No spinal canal stenosis. Dur al sac diameter 12 mm. L3-L4: Disc desiccation and mild disc height loss, mild disc bulge with superimposed right lateral br oad-based disc protrusion. There is mild right facet hypertrophy. Mild narrowing right lateral recess without evidence of impingement of the descending right L4 nerve roots. Mild-moderate right neural f oraminal stenosis. Left neural foramen patent. No spinal canal stenosis midline dural sac diameter is 12 mm. L4-L5: Disc desiccation, there is mild intradiscal edema adjacent of the Schmorl's node, moderate cir cumferential disc bulge, mild ligamentum flavum thickening, and facet hypertrophy and spurring. Moder ate bilateral neural foraminal stenosis. There is mild narrowing lateral recesses without evidence of impingement of the descending L5 nerve roots. Deformity of the ventral dural sac by the disc bulge w ithout evidence of spinal canal stenosis. Dural sac diameter is 11 mm. L5-S1: Disc desiccation, posterior disc height loss, moderate left eccentric disc bulge, left lateral disc osteophyte, and facet hypertrophy and spurring. Moderate right neural foraminal stenosis. Sever e left neural foraminal stenosis with effacement of the perineural fat and probable impingement of th e exiting left L5 nerve. There is moderate narrowing of the left lateral recess about the descending left S1 nerve root sleeve. No spinal canal stenosis. Midline dural sac diameter is 13 mm. IMPRESSION: 1. Lumbar disc disease and facet arthritis. No spinal canal stenosis. There are stenoses of the later al recesses and neural foramina at several levels of the lumbar spine with the greatest extent of alan notic disease at L3-L4, L4-L5 and L5-S1. See above. 2. The questioned upper L5 vertebral body bony lesion on prior CT imaging is consistent with a Schmor l's node from degenerative disc disease at L4-L5. 3. Severe bilateral renal hydronephrosis with renal atrophy and marked dilation of the ureters extend ing towards the bladder and bladder wall thickening which extends outside the [id number]. There is deep pelvic soft tissue edema present. These findings were present on prior CT imaging from April 2021. Electronically signed by: Kiet Bowles MD (07/07/2021 1:18 PM) [facility]
--- NOTE | 2021-07-07 13:23 | KCIC ---
EXAMINATION: MRI abdomen without IV contrast. INDICATION:61 years, Male, liver mass. TECHNIQUE: Multiplanar multisequence MRI of the abdomen was performed. COMPARISON: CT chest dated 05/17/2021. FINDINGS: LOWER CHEST: Unremarkable. ABDOMEN: Normal size and morphology of the liver. Diffuse drop signal of the liver parenchyma on in phase sequ ence, suggesting of iron deposition. There is a 1.0 cm, T2 hyperintense lesion in hepatic segment 6, limits evaluation due to lack of IV contrast. However, no corresponding diffusion restriction. Additi onal, subcentimeter fluid intensity lesions in the right hepatic lobe, most consistent with simple cy sts. Gallbladder is unremarkable. No biliary ductal dilation. No splenomegaly. Unremarkable pancreas. No a drenal nodule. Severe bilateral hydronephrosis and visualized hydroureters. Nonspecific bilateral per inephric fat stranding. No bowel dilation. No lymphadenopathy in the abdomen. Normal caliber abdomina l aorta. No ascites. MUSCULOSKELETAL STRUCTURES: No suspicious osseous lesion. IMPRESSION: Within the limitation of noncontrast exam, 1. A 1.0 cm T2 hyperintense lesion in the inferior right hepatic lobe, without corresponding diffusio n restriction. Findings favor benign lesion such as cyst or hemangioma. Additional, subcentimeter sim ple right hepatic lobe cysts. 2. Diffuse drop signal of the liver parenchyma on in phase sequence, suggesting of iron deposition. C linical correlation is advised. 3. Severe bilateral hydronephrosis and visualized hydroureters. Electronically signed by: Norman Gibbons MD (07/07/2021 1:20 PM) [facility]
== END ==
LOC: KCIC MRI 10:05
PROVIDERS: ATTEND Family Medicine
DX: R16.0 Hepatomegaly, not elsewhere classified (principal); N13.4 Hydroureter; N13.30 Unspecified hydronephrosis; N26.1 Atrophy of kidney (terminal); M51.36 Other intervertebral disc degeneration, lumbar region; M47.896 Other spondylosis, lumbar region; M51.86 Other intervertebral disc disorders, lumbar region; M51.27 Other intervertebral disc displacement, lumbosacral region; M25.78 Osteophyte, vertebrae; M48.07 Spinal stenosis, lumbosacral region; M51.46 Schmorl's nodes, lumbar region; M89.9 Disorder of bone, unspecified
CPT/HCPCS: 72148; 74181